=== PATIENT | male | born 1960 | race Caucasian/White ===

== ENCOUNTER 2025-08-15 21:11 | Inpatient (IN) | payer MEDICAID ==
[~2025-08-15] VITALS: Ht 167.6 cm; Wt 54.0 kg
--- NOTE | 2025-08-15 22:33 | Physician Documentation ---
History of Present Illness ~ Chief Complaint: Foot pain Stated Complaint: MULTIPLE ISSUES Time Seen by MD: 22:32 OK to notify your PCP?: Yes Primary Medical Doctor: none Source: patient, EMS, RN notes reviewed, EMS notes reviewed Mode of Arrival: EMS Exam Limitations: no limitations HPI 10 This patient is a 64 y/o male with DM2 BIBEMS to ED for feet pain. Patient states that this pain has been worsening for the past few months. Per EMS patient BG also over 600. He states he is upset because he was told by other doctors at [facility] that they could not place stents due to his blood vessels being too small. He does endorse EtOH use, stating he binge drinks. Patient not es that he has not been taking his insulin because he is upset that the doctors in [facility] and [facility] told him they could not place more stents, as his blood vessels were too small. They did give him lasix but he did not take them. Patient has been noncompliant with his medicaitons. Patient denies any associated fever or chills, but states he is short of breath and is having some chest pain. He does endorse methamphetamine use as well, but states he has not done any recently. He is unfortunately a very poor historian, and will not elaborate on his medical issues, nor his past medical history and is agitated that we do not immediately have access to his records from other hospitals. Patient denies any other associated symptoms at this time. Patient denies any other alleviating or exacerbating factors. Tetanus witin 5 years: Yes Medication Reconciliation Allergies: Coded Allergies: No Known Allergies (Unverified , 08/15/25) Past Medical History Past Medical History: Peripheral Neuropathy, Congestive Heart Failure, Hypertension, Myocardial Infarction, BPH, Diabetes, HIV, Anxiety, Depression Past Surgical History: noncontributory Smoking Status: Current every day smoker Alcohol Use: Heavy Drug Use: marijuana, methamphetamine Review of Systems All Other Systems at this time: Reviewed and Negative Physical Exam Vital Signs: RN Vital Signs have been reviewed: Yes, Temperature: 97.6, Source: Temporal, Heart Rate: 86, Respiratory Rate: 18, BP: 136/87, Pulse Oximetry: 100, Weight: 62.000 Oxygen Flow Rate: 0 Physical Exam General: Disheveled. The patient is well developed, well nourished, nontoxic appearing and is in no acute distress. Skin: [place], warm and dry with no rashes. HEENT: Head was normocephalic and atraumatic. Eyes - pupils equal, round, reactive to light and accommodation. Extraocular movements were intact. Conjunctivae were nonicteric. The mouth and oropharynx were clear with moist mucous membranes. There were no pharyngeal exudates or erythema. Neck: Supple and nontender. There was no jugular venous distention, lymphadenopathy, thyromegaly or masses. Chest: Clear to auscultation bilaterally without wheezes, rales or rhonchi. No accessory muscle use. No dullness to percussion. Heart: Rate regular and rhythmic. S1, S2. No murmurs. Palpation of the chest wall was normal. No rubs or thrills. Abdomen: Soft, nontender and nondistended. Positive bowel sounds. No guarding or rebound. No hepatosplenomegaly or palpable masses. Extremities: Pitting edema to bilateral lower extremities. Skin breakdown to both shins. Ulcerations to bilateral feet. No cyanosis or clubbing. The patient moves all extremities. Pulses were equal and symmetric. Neurologic: Motor and sensation grossly intact. A & O x4. Psychologic: The patient was oriented to person, place and time. Progress Progress Note 2352: Patient charts from [facility] and [facility] were obtained and reviewed. 0017: Paged hospitalist 0054: Case discussed with hospitalist who agrees to evaluate patient for admission. Results/Orders Reviewed/noted all lab results: Yes Results/Orders Orders - ALEX SWAIN MD Normal Saline 1000ml (0.9% Sodium Chlori (08/15/25 22:30) Culture Blood (08/15/25 22:33) Electrocardiogram (08/15/25 22:33) Abg (Arterial Blood Gas) (08/15/25 22:43) Chest,Single View (08/15/25 22:44) Insulin Reg/Ns 100units/100ml (Myxredlin (08/15/25 23:05) Observation Status Start (08/15/25 23:04) Normal Saline 1000ml (0.9% Sodium Chlori (08/16/25 00:15) Page Hospitalist (08/16/25 00:16) Fill Out Med Reconciliation (08/16/25 00:16) Completed Orders - ALEX SWAIN MD Lipase (08/15/25 22:29) Ethanol (08/15/25 22:29) MG (08/15/25 22:29) Pt Inr (08/15/25 22:29) PTT (08/15/25 22:29) Drug Screen, Urine (08/15/25 22:29) BMP (08/15/25 22:29) Hs Troponin I W Calculations (08/15/25 22:29) PBNP (08/15/25 22:31) Procalcitonin (08/15/25 22:33) Lacticsepsis (08/15/25 22:33) Electrocardiogram (08/15/25 22:33) Hs Troponin I W Calculations (08/15/25 22:33) Chest,Single View (08/15/25 22:44) Aspirin 81mg Chew Tablet (Aspirin 81mg C (08/15/25 22:45) Ua W/Microscopic, Cult If Ind (08/15/25 22:42) Ceftriaxone/N4j-[id number] 1gm (Rocephin 1 (08/16/25 00:55) Medications Received in ER Medications (Trade) Dose Ordered Sig/Aaron Route PRN Reason Start Time Stop Time Status Last Admin Dose Admin Sodium Chloride 1,000 ml @ 100 mls/hr Q10H ONCE IV 08/15/25 22:30 08/16/25 08:29 08/15/25 22:50 100 MLS/HR (aspirin 81MG chew tablet) 324 mg ONCE ONCE PO 08/15/25 22:45 08/15/25 22:46 DC 08/15/25 22:49 324 MG Insulin Human Regular 100 ml @ 5 mls/hr Q20H PRN IV Per Protocol 08/15/25 23:05 08/16/25 00:45 5 MLS/HR Sodium Chloride 1,000 ml @ 200 mls/hr Q5H ONCE IV 08/16/25 00:15 08/16/25 05:14 08/16/25 00:46 200 MLS/HR Ceftriaxone Sodium 50 ml @ 100 mls/hr ONCE ONCE IV 08/16/25 00:55 08/16/25 01:24 DC 08/16/25 01:21 100 MLS/HR Vital Signs 08/15/25 08/15/25 08/15/25 08/15/25 21:16 21:21 22:22 23:18 Temp 97.9 97.8 97.6 97.8 Pulse 91 92 86 90 Resp 20 20 18 20 B/P (MAP) 137/81 136/85 (102) 136/87 (103) 139/84 (102) Pulse Ox 99 100 100 98 O2 Flow Rate 0 0 0 0 08/16/25 00:25 Temp 98.2 Pulse 89 Resp 20 B/P (MAP) 125/82 (96) Pulse Ox 99 O2 Flow Rate 0 Laboratory Tests Test 08/15/25 21:42 08/15/25 22:42 08/15/25 23:14 08/15/25 23:24 Glucometer > 600 *H Urine Specimen Description Non-specified Urine Color Yellow Urine Clarity Clear Urine pH 7.0 Urine Specific [place] 1.010 Urine Protein Negative Urine Glucose (UA) >=1000 H Urine Ketones Negative Urine Occult Blood Negative Urine Nitrite Negative Urine Bilirubin Negative Urine Urobilinogen 0.2 Urine Leukocyte Esterase Negative Urine RBC None seen Urine WBC None seen Urine Squamous Epithelial Cells Few Urine Bacteria Few Urine Yeast Few Urine Culture Indicated Not ind Volume Urine Centrifuged 10 ml Urine Comment Urine Opiates Screen Negative Urine Methadone Screen Negative Urine Fentanyl Screen Negative Urine Barbiturates Screen Negative Urine Phencyclidine Screen Negative Urine Amphetamines Screen Negative Urine Benzodiazepines Screen Negative Urine Cocaine Screen Negative Urine Cannabinoids Screen Negative Drug Screen Comment White Blood Count 8.7 Red Blood Count 4.15 L Hemoglobin 13.0 L Hematocrit 37.9 L Mean Corpuscular Volume 91.5 Mean Corpuscular Hemoglobin 31.3 H Mean Corpuscular Hemoglobin Concent 34.2 Red Cell Distribution Width 13.0 Platelet Count 329 Mean Platelet Volume 7.5 Neutrophils (%) (Auto) 72.0 Lymphocytes (%) (Auto) 20.4 L Monocytes (%) (Auto) 5.7 Eosinophils (%) (Auto) 1.3 Basophils (%) (Auto) 0.6 Neutrophils # (Auto) 6.3 Lymphocytes # (Auto) 1.8 Monocytes # (Auto) 0.5 Eosinophils # (Auto) 0.1 Basophils # (Auto) 0.1 CBC Comment Prothrombin Time 10.9 INR International Normalized Ratio 1.1 Activated Partial Thromboplast Time 24 Coagulation Comments Sodium Level 130 L Potassium Level 4.4 Chloride Level 98 L Carbon Dioxide Level 26.8 Anion Gap 5 L Blood Urea Nitrogen 23 H Creatinine 0.95 Estimated GFR/1.73 m2 80 BUN/Creatinine Ratio 24.2 H Glucose Level 566 *H Lactic Acid Level 1.4 Calcium Level 8.2 L Magnesium Level 1.8 Total Bilirubin 0.4 Aspartate Amino Transf (AST/SGOT) 86 H Alanine Aminotransferase (ALT/SGPT) 115 H Alkaline Phosphatase 441 H Troponin I High Sensitivity 47 Pro-B-Type Natriuretic Peptide 9603 H Total Protein 6.0 L Albumin 2.3 L Globulin 3.7 Albumin/Globulin Ratio 0.6 L Lipase 63 Procalcitonin < 0.05 Chemistry Comments Ethyl Alcohol Level < 10 Blood Gas Specimen Type Arterial Blood Gas Puncture Site Rr O2 Saturation 96.2 Arterial Blood pH (Temp corrected) 7.460 H Arterial Blood pCO2 (Temp correct) 35.3 Arterial Blood pO2 (Temp corrected) 83.8 Arterial Blood PO2/FiO2 Ratio 4.10 Arterial Blood HCO3 24.6 Arterial Blood Base Excess 1.0 Arterial Blood Oxyhemoglobin 95.6 Arterial Blood Carboxyhemoglobin 0.3 L Arterial Blood Methemoglobin 0.3 Arterial Blood Deoxyhemoglobin 3.8 Herber Test Positive Blood Gas Hemoglobin 13.3 L Blood Gas Temperature 36.6 Blood Gas Liter Flow 0 Blood Gas Modality Room air FiO2 21.0 Re-Evaluation Re-Evaluation : Progress In his patient is a poor historian does not seem to be interested did in his own medical management jumping from hospital hospital with polysubstance abuse and medical noncompliance. Patient was seen in [place] then went to [facility] in [place] seen twice given Lasix and patient now comes to our hospital where he did not take his insulin or his other medications and presents with hyperglycemia worsening lower extremity wound ulcers starting to look infected and early signs of cellulitis. Laboratory work was obtained CBC WBCs 8.7 h emoglobin of 13 hematocrit 37 platelets 329 no significant left shift but the patient is HIV positive and immunocompromise. Chemistry shows a glucose greater than 600 sodium is low at 130 CO2 normal at 26 BUN creatinine is within normal limits. Lactic acid 1.4 procalcitonin at 0.5 which was all reassuring proBNP is 9600 for which hydration was done very gradually because the patient has heart failure and some lower extremity swelling with possible fluid overload LFTs slightly elevated with an AST of 86 ALT 115 and alk-phos 441. Subsequent glucose was 852694-44 after the patient was started on an insulin drip potassium also improved 3.9 magnesium 1.8 phosphorus 3.1 and serial troponins are negative tox screen happens to be negative including a negative alcohol. Urinalysis is also within normal limits. Upon arrival patient received fluid boluses he received Rocephin for skin infection also aspirin and insulin drip was started. Has a rare consult with the hospitalist who kindly agreed to admit the patient for further workup and care. Continuous monitoring tech interpretation shows normal sinus rhythm heart rate 90s, no ectopy, normal, my interpretation. Pulse oximetry monitor interpretation shows normal oxygenation at 99% room air, normal, my interpretation. 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 Alex Swain Measurements Intervals [place] Rate: 91 P: 72 [place]: 165 QRS: 98 QRSD: 84 T: 81 QT: 404 QTc: 498 Interpretive Statements Atrial-paced complexes LAE, consider biatrial enlargement Right axis deviation Consider left ventricular hypertrophy Anterior Q waves, possibly due to LVH Artifact in lead(s) I,III,aVL Electronically Signed On 08-15-2025 22:52:[address] Alex Swain Please click the below link to view image of tracing. EKG Date and Time:08/15/252243 Electronically Signed by: ALEX SWAIN MD Date and Time: 08/15/252251 NO PRIMARY CARE PROVIDER~ cc: ~ Chest X-Ray : Interpreted By: both Additional Comments [facility] [address] , [place], [facility] [address] DIAGNOSTIC RADIOLOGY Patient: LONG CAMARENA Medical Record: [id number] [facility] : 1960, Age: 64 Sex: Male Location: ER Patient Status: [facility] ER Service Date/Time: 08/15/252243 Ordering Physician: ALEX SWAIN MD Exam: CHEST,SINGLE VIEW CHEST RADIOGRAPH Indication: CP Technique: 1 view Comparison: None FINDINGS: Lines and Tubes: None Lungs/Pleura: No focal consolidation, pleural effusion or pneumothorax. Mild reticular opacities which are favored chronic. Cardiomediastinum: Upper normal heart size. Aortic atherosclerosis. Other: No acute osseous abnormality. IMPRESSION: 1. No acute cardiopulmonary abnormality. Electronically Signed by:ZACHARY DAVIS MD Date & Time: 08/15/252299 Dictated by: ZACHARY DAVIS MD Dictation date and time: 08/15/252252 Primary Care Provider: NO PRIMARY CARE PROVIDER cc: ALEX SWAIN MD ~ EDMD Dr. Swain reviewed above imaging and agrees with interpretation. Heart Score: Heart Score Response (Comments) Value History Slightly Suspicious 0 EKG Repolarization Disturb 1 Age 45-64 1 Risk Factors >3 or Hx ASHD 2 Troponin Normal limit 0 Total 4 Medical Decision Making Additional info obtained from: old records Foot Diff Dx:Considerations: Include: Abrasion, Arthritis, Cellulitis, Contusion, Dislocation, DJD, Ulcer Departure Time of Disposition: 00:17 Disposition: 09 ADMITTED INPATIENT Admitted to Inpatient Unit: yes, to hospitalist Admission Level of Care: PCU with Tele Impression: Primary Impression: Hyperglycemia Additional Impressions: Chest pain Qualified Codes: R07.9 - Chest pain, unspecified Medical non-compliance Diabetic foot ulcers Qualified Codes: E11.621 - Type 2 diabetes mellitus with foot ulcer; L97.509 - Non-pressure chronic ulcer of other part of unspecified foot with unspecified severity Hyperosmolality Polysubstance abuse Condition: Guarded Referrals: NO PRIMARY CARE PROVIDER (PCP) Education Educated: Patient Educated regarding: diagnosis, need for follow up, other Critical Care Note Total Time (mins): 30 Critical Care Note The very real possibility of a deterioration of this patient's condition required the highest level of my preparedness for sudden, emergent intervention. I provided critical care services, which included medication orders, frequent reevaluations of the patient's condition and response to treatment, ordering and reviewing test results, and discussing the case with various consultants. Excludes time spent performing separately billable procedures. The critical care time associated with the care of the patient was 30 minutes. Signature Scribe Signature: Scribed for Alex Swain MD by Taisha Bates 08/15/25 23:08 Attestation: The note accurately reflects work and decisions made by me.Alex Swain MD 08/16/25 04:20 ALEX SWAIN MD Aug 15, 2025 22:33
--- NOTE | 2025-08-15 22:47 | ELECTROCARDIOGRAPH REPORT ---
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 Paul Swain Measurements Intervals [place] Rate: 91 P: 72 [place]: 165 QRS: 98 QRSD: 84 T: 81 QT: 404 QTc: 498 Interpretive Statements Atrial-paced complexes LAE, consider biatrial enlargement Right axis deviation Consider left ventricular hypertrophy Anterior Q waves, possibly due to LVH Artifact in lead(s) I,III,aVL Electronically Signed On 08-15-2025 22:52:[address] Paul Swain Please click the below link to view image of tracing.
[2025-08-15] MEDS: normal saline 1000ml 1,000 ML IV ONE (22:50)
--- NOTE | 2025-08-15 23:03 | RADIOLOGY REPORT ---
CHEST RADIOGRAPH Indication: CP Technique: 1 view Comparison: None FINDINGS: Lines and Tubes: None Lungs/Pleura: No focal consolidation, pleural effusion or pneumothorax. Mild reticular opacities which are favored chronic. Cardiomediastinum: Upper normal heart size. Aortic atherosclerosis. Other: No acute osseous abnormality. IMPRESSION: 1. No acute cardiopulmonary abnormality.
[2025-08-15 23:12] LABS: LEUKOCYTE ESTERASE ,URINE NEGATIVE (Neg); NITRITES, URINE NEGATIVE (Neg); OCCULT BLOOD,URINE NEGATIVE (Neg)
[2025-08-15 23:15] LABS: UA COLLECTION TYPE NON-SPECIFIED
[2025-08-15 23:19] LABS: SQUAMOUS EPITHELIAL CELL,UR FEW /LPF (FEW); YEAST FEW /HPF (NEGATIVE)
[2025-08-15 23:23] LABS: MEAN PLATELET VOLUME 7.5 FL (7.4-10.4); RED CELL DISTRIBUTION WIDTH 13.0 % (11.5-14.5)
[2025-08-15 23:28] LABS: ABG BASE EXCESS 1.0 mmol/L (-2.0-3.0); ABG HCO3 24.6 mmol/L (21.0-28.0); ABG OXYGEN SATURATION 96.2 % (94.0-98.0); ABG PCO2 (T) 35.3 mmHg (35.0-48.0); ABG PH (T) 7.460 (7.350-7.450); ABG PO2 (T) 83.8 mmHg (83.0-108.0); ALLEN'S TEST POSITIVE; FCOHb 0.3 % (0.5-1.5); FHHb 3.8 % (0.0-5.0); FIO2 21.0 mmHg/%; FLOW 0 L/min; FMetHb 0.3 % (0.0-1.5); FO2Hb 95.6 % (94.0-98.0); MODE ROOM AIR; PATIENT TEMPERATURE 36.6; TOTAL HEMOGLOBIN 13.3 G/dl (13.5-17.5)
[2025-08-15 23:33] LABS: APTT 24 SECONDS (22-32); INR 1.1 INR
[2025-08-15 23:42] LABS: CREATININE 0.95 MG/DL (0.60-1.10); PRO BRAIN NATRIURETIC PEPTIDE 9603 PG/ML (0-125); TOTAL CARBON DIOXIDE 26.8 MMOL/L (24-32); eCRCL 70 ML/MIN; eGFR 80 ML/MIN
[2025-08-15 23:43] LABS: URINE AMPHETAMINE SCREEN NEGATIVE (Neg); URINE BARBITUATE SCREEN NEGATIVE (Neg); URINE BENZODIAZEPINES SCREEN NEGATIVE (Neg); URINE CANNABINOID SCREEN NEGATIVE (Neg); URINE COCAINE SCREEN NEGATIVE (Neg); URINE METHADONE SCREEN NEGATIVE (Neg); URINE OPIATE SCREEN NEGATIVE (Neg); URINE PHENCYCLIDINE SCREEN NEGATIVE (Neg)
[2025-08-15 23:47] LABS: ETHANOL < 10 MG/DL (<10)
[2025-08-16] VITALS (7 sets, daily range): BP systolic 108–128; BP diastolic 74–84; PULSE 70–83; RESP 17–26; TEMP 96.9–98.6; O2SAT 96–99
[2025-08-16] MEDS: Insulin Reg/NS 100units/100mL 100 ML IV PRN (00:45)
[2025-08-16] MEDS: normal saline 1000ml 1,000 ML IV ONE (00:46)
[2025-08-16] MEDS ORDERED: mag hydrox/Alum hydrox/simeth 30ml oral suspension PO PRN (00:55)
[2025-08-16] MEDS ORDERED: potassium Cl 20 mEq SR tablet PO PRN ×2 (00:55)
[2025-08-16] MEDS ORDERED: magnesium hydroxide 30ml (MOM) UD suspension PO PRN (00:55)
[2025-08-16] MEDS ORDERED: ondansetron/PF 4mg/2ml inj IV PRN (00:55)
[2025-08-16] MEDS ORDERED: magnesium Cl slow-release 64mg tablet PO PRN (00:55)
[2025-08-16] MEDS ORDERED: magnesium sulf-water 2g/50mL 50 ML IV PRN ×2 (00:55→02:05)
[2025-08-16] MEDS ORDERED: magnesium sulf-water 4G/100mL 100 ML IV PRN (00:55)
[2025-08-16] MEDS ORDERED: potassium Cl 40MEQ/1/2NS 520ml 520 ML IV PRN ×2 (00:55→02:05)
[2025-08-16] MEDS: CefTRIAXone/D5W-Rocephin 1gm 50 ML IV ONE (01:21)
[2025-08-16] MEDS ORDERED: potassium Cl 40MEQ/270ML bag 270 ML IV PRN (02:05)
[2025-08-16] MEDS ORDERED: sodium phosphate inj. 30 MMOL in dextrose 5%-water 250 ML IV PRN (02:05)
[2025-08-16] MEDS ORDERED: sodium phos 15mmol/D5 255mL 255 ML IV PRN (02:05)
[2025-08-16] MEDS ORDERED: dextrose 50%-water 50ml dispensing syringe IV PRN ×3 (02:05→05:05)
[2025-08-16 02:28] LABS: PHOSPHORUS 3.1 MG/DL (2.3-4.5)
--- NOTE | 2025-08-16 02:34 | HISTORY AND PHYSICAL-Residence ---
History & Physical Providers to CC Resident Creating Document: JOSE PADILLA RES ~ History of Present Illness Primary Medical Doctor: none Reason for Admit\Complaint: HHS, cellulitis History of Present Illness 64 years old male with history of diabetes mellitus insulin-dependent, CHF unknown EF, coronary artery disease status post stent, HIV, polysubstance abuse, alcohol drinker presented to the ED due to not feeling good and bilateral lower extremity wound/edema. Patient lives in a and he is traveling around the area. He is visiting different hospital as his report during last couple of months which similar symptoms. Patient is poor historian and information gathered from patient and medical record from other hospital. He reported during last couple of months he did not feel good he missed his insulin injection and traveled from city to city with different hospitals and he is not satisfy with the care that they provided for him. He had bilateral lower extremity edema and multiple wound for couple of weeks. He is comfortable at the bedside denied chest pain shortness of breaths at this time however he reported he is battling with chest pain and shortness of breaths for couple of months. Allergies: Coded Allergies: No Known Allergies (Unverified , 08/15/25) Past Medical History Past Medical History Coronary artery disease status post stent CHF HIV (as previous record) Diabetes mellitus Anxiety depression PTSD Past Surgical History Surgical History Comment Patient reported many years ago he had stopped wound on his back and had back surgery and also stomach surgery? Coronary artery disease status post stent (as previous record) Family History Family History: FH: diabetes mellitus (Sister,) Past Social History Smoking: Cigarettes (Smoked cigarettes, methamphetamine) Alcohol Use: Heavy Drug Use: Marijuana, Methamphetamine (Methamphetamine IV and smoking) ROS ROS Constitutional: No fever, dizziness, positive for weakness. no change in appetite/weight HEENT: No blurring of the vision, No sore throat, epistaxis, tinnitus Cardiovascular: Intermittent chronic chest pain/discomfort,no palpitations, no syncope. Positive pedal edema Respiratory: No sob, cough,, hemoptysis Gastrointestinal: Intermittent abdominal pain, no nausea, vomiting. no diarrhea, no constipation, melena. Genitourinary: No frquency, urgency, incontinence, nocturia. No dysuria, hematuria Musculoskeletal: Bilateral foot pain Endocrine: Positive for polydipsia, polyuria. No heat or cold intolerance Neurologic: No headache, vertigo. No weakness, no numbness or tingling of extremities Psychiatric: No hallucinations/delusions, no anhedonia, no suicidal ideation\ positive for mood changes Hematologic: No bleeding or bruises Exam Vitals: Vital Signs Date Time Temp Pulse Resp B/P (MAP) Pulse Ox O2 Delivery O2 Flow Rate FiO2 08/16/25 01:45 97.8 85 20 144/88 (106) 99 0 General: General: Awake and Alert, no acute distress. HEENT: Conjunctiva pink, Sclera clear, Mucus Membranes dry Neck: Supple without masses and tenderness. Resp: Lungs clear to auscultation bilaterally. Heart: Regular Rate and rhythm, normal S1 and S2 Abdomen: Soft and non tender no organomegaly Extremities: Bilateral lower extremity 2+ edema, foot edema, multiple ulcer on the mendoza, tender and warmth in touch Skin: Warm and Dry. Neurological: Speech is clear, alert, and oriented x 4, no gross neurological deficits Diagnostic Data Last Recorded Lab Results: 08/15/25 2314 08/15/25 2314 Diagnostic Data: Laboratory Tests Test 08/15/25 23:14 Prothrombin Time 10.9 SECONDS (9.0-12.0) INR International Normalized Ratio 1.1 INR Activated Partial Thromboplast Time 24 SECONDS (22-32) Coagulation Comments Advance Care Planning Advanced Care plannin - 30 Minutes Additional Plan 64 years old male with history of CHF, coronary artery disease, polysubstance abuse including methamphetamine IV presented to the ED due to weakness/not feeling it HHS: resolved Uncontrolled diabetes noncompliant with medication Blood glucose on admission was 600, ABG showed: No acidosis, UA negative for ketones Insulin drip started as protocol in the ED initially Patient received IV fluid initially 200 mL/hour however due to history of CHF and bilateral lower extremity edema and elevated proBNP we decreased the dose after couple hours We DC the insulin drip after blood glucose dropped and started on hyperglycemia hypoglycemia protocol, insulin Lantus 5 units overlapped. Hemoglobin A1c is pending ,10 units Lantus HS ordered with hyperglycemia hypoglycemia protocol Cellulitis WBC 8.7 Patient had history of uncontrolled diabetes Bilateral lower extremity edema and multiple small ulcers Venous Doppler ordered Zosyn started Continue IV fluid follow up blood culture CHF, unknown EF Coronary artery disease status post stent Hypertension Elevated proBNP ECHO ordered Medication should be optimized for GDM T other comorbidities Alcohol drinker, history of methamphetamine IV drug abuse, (patient is on HIV medication as record at [facility]) Alcohol withdrawal protocol in place Continue home medication after reconciliation Code Status: full DVT prophylaxis: heparin sq Analgesia/sedation: none Line/tube: peripheral GI prophylaxis: protonix Nutrition: Carb control PT: Y Prognosis: Guarded Disposition: Continue monitoring PCU floor with telemetry Jose Padilla MD Internal Medicine Resident We saw and discussed this patient and discussed the case with the resident team and agree with assessment and plan as documented Date of Service: Aug 16, 2025 Billing Provider: TYRONE BYRD MD, ELAHE, RES Aug 16, 2025 02:34 TYRONE BYRD MD Aug 16, 2025 08:28
[2025-08-16] MEDS: morphine 4 MG/ML inj SYRINge IV PRN ×2 (03:01→17:39)
[2025-08-16] MEDS ORDERED: glucagon, human recombinant 1mg kit SUBCUT PRN (05:05)
[2025-08-16] MEDS ORDERED: DEXTROSE 15 GM of carb/4 tabs (each vial/BOTTLE has 4 tablets) PO PRN ×2 (05:05)
[2025-08-16] MEDS: normal saline 1000ml 1,000 ML IV SCH (05:14)
[2025-08-16] MEDS: K and/or MAG REPLACEMENT MC SCH (08:00)
[2025-08-16] MEDS: INSULIN LISPRO 100 UNIT/ML INSULN.PEN MULTI-DOSE SQ SCH ×3 (08:23→18:00)
[2025-08-16] MEDS: insulin glargine (Lantus) pen - multi-dose SQ ONE ×2 (08:23→16:24)
[2025-08-16] MEDS: docusate sod 100mg capsule PO SCH (08:24)
[2025-08-16] MEDS: thiamine 100mg/ml 2ml inj. IV SCH (08:24)
[2025-08-16] MEDS: piperacillin/tazo 3.375gm/50ml 50 ML IV SCH (09:38)
[2025-08-16] MEDS: folic acid 1mg/0.2ml inj IV SCH (11:00)
[2025-08-16] MEDS ORDERED: [UNRECOGNIZED DRUG - CODE] (12:37)
[2025-08-16] MEDS ORDERED: EMPA10TA PO (12:37)
[2025-08-16] MEDS ORDERED: ATOR40TA72 PO (12:37)
[2025-08-16] MEDS ORDERED: ISOS30TA84 PO (12:37)
[2025-08-16] MEDS ORDERED: INSU100V49 (12:37)
[2025-08-16] MEDS ORDERED: ASPI-1397 PO (12:37)
[2025-08-16] MEDS ORDERED: BLOO-1657 (12:37)
[2025-08-16] MEDS ORDERED: CLOP75TA34 PO (12:37)
[2025-08-16] MEDS ORDERED: METO-395 PO (12:37)
[2025-08-16] MEDS ORDERED: INSU100I31 SQ (12:37)
[2025-08-16] MEDS ORDERED: insulin regular, human 10 units/0.1 ml syringe IV ONE (12:45)
[2025-08-16] MEDS: FLU VACC TS2025-26(6MOS UP)/PF (FLULAVAL) 45 MCG/0.5 ML SYRINGE IMVAC ONE (13:00)
[2025-08-16] MEDS: insulin regular, human 10 units/0.1 ml syringe SQ ONE ×2 (13:05→16:25)
[2025-08-16] MEDS ORDERED: HYDROcodone/acetaminophen 5mg/325mg tablet PO PRN (13:50)
[2025-08-16] MEDS: HYDROcodone/acetaminophen 10/325mg tab PO PRN (14:52)
[2025-08-16] MEDS: insulin glargine (Lantus) pen - multi-dose SQ SCH (16:57)
--- NOTE | 2025-08-16 17:02 | VASCULAR REPORT ---
Bilateral lower extremity venous duplex Clinical History: Bilateral calf pain Comparison: None Technique: Duplex Doppler evaluation of the deep venous systems of both lower extremities from the common femoral veins to the popliteal veins including color Doppler and spectral/pulsed waveform analysis was performed. Findings: RIGHT SIDE: The common femoral vein demonstrates appropriate compressibility and waveform variability. There is compressibility/patency of the great saphenous vein at the proximal thigh. The femoral vein demonstrates appropriate compressibility and waveform variability. The deep femoral vein demonstrates appropriate compressibility and waveform variability. The popliteal vein demonstrates appropriate compressibility and waveform variability. There is normal compressibility at the tibioperoneal trunk. LEFT SIDE: The common femoral vein demonstrates appropriate compressibility and waveform variability. There is compressibility/patency of the great saphenous vein at the proximal thigh. The femoral vein demonstrates appropriate compressibility and waveform variability. The deep femoral vein demonstrates appropriate compressibility and waveform variability. The popliteal vein demonstrates appropriate compressibility and waveform variability. There is normal compressibility at the tibioperoneal trunk. Normal-appearing lymph nodes are seen in the bilateral groins. Impression: 1. No right or left femoropopliteal venous thrombosis. 2. If clinical concern/symptoms persist or worsen, short-interval follow-up study is suggested.
[2025-08-16] MEDS: EMPAGLIFLOZIN 10 MG TABLET PO SCH (17:41)
[2025-08-16] MEDS: aspirin 81mg, enteric-coated 1 TAB TABLET.DR PO SCH (17:41)
[2025-08-16] MEDS: isosorbide mononitrate 30mg tab.SR.24H PO SCH (17:41)
[2025-08-16] MEDS: metoprolol succinate 25mg (24-HOUR) SR. Tablet PO SCH (17:45)
--- NOTE | 2025-08-16 20:23 | CARDIOLOGY REPORT ---
APPROVED REPORT EXAM: Comprehensive 2D, Doppler, and color-flow Echocardiogram. Patient Location: [address] Blood Pressure: 122/80 mmHg Heart Rate: 81 bpm Rhythm: Sinus Rhythm Indications Congestive Heart Failure Evaluate LV Function Elevated ProBNP Hx of CAD Hx of Stents X 1 Diabetes Mellitus II HIV Positive [place]: None Previous echo: None 2D Dimensions RVDd 3.9 cm LA Diam 4.5 cm RA Minor 4.5 cm Aortic Root(2D) 3.5 cm LVOT Diameter 2.02 (1.8-2.4cm) IVC 21.53 mm CO 1.6 L/min M-Mode Dimensions Left Atrium(MM) 4.54 (2.5-4.0cm) IVSd 1.24 (0.7-1.1cm) LVDd 5.27 (4.0-5.6cm) Aortic Root 3.08 (2.2-3.7cm) PWd 1.10 (0.7-1.1cm) Aortic Cusp Exc 1.72 (1.5-2.0cm) IVSs 1.26 cm MV EPSS 1.8 (<0.5cm) LVDs 4.94 (2.0-3.8cm) FS (%) 7 % PWs 1.10 cm ESV(Teich) 98.3 ml LVEF(%) 16 (>50%) Aortic Valve AoV Peak Galo. 81.5 cm/s AoV VTI 14.5 cm AO Peak GR. 2.7 mmHg AO Mean GR. 2 mmHg LVOT VTI 10.63 cm LVOT Peak Galo. 60.7 cm/s IDANIA(VTI)/BSA 2.35 cm2/m2 IDANIA (VTI) 2.35 cm2 Mitral Valve MV E Velocity 481.9 cm/s MV Peak Gr. 7 mmHg MV DECEL TIME 156 ms MV A Velocity 479.0 cm/s MV Mean Gr. 2 mmHg MV PHT 48 ms E/A Ratio 1.0 MVA (PHT) 4.58 cm2 MR VMax 490.7 cm/s MV VMax 129.0 cm/s MR PG Max 96.3 mmHg MV VMean 57.5 cm/s MVA VTI 1.70 cm2 MV VTI 20.0 cm Tricuspid Valve TR P. Velocity 358 cm/s RAP ESTIMATE 15 mmHg TR Peak Gr. 51 mmHg RVSP 66 mmHg LEFT VENTRICLE Normal LV size with severely reduced function. Multisegmental wall motion abnormalities. Mild concentric hypertrophy. Overall LVEF is 10-15%. RIGHT VENTRICLE Right ventricle is moderate to severely dilated with reduced systolic function. Estimated PA systolic pressure is 66 mmHg. ATRIA Moderate biatrial enlargement. AORTIC VALVE Trileaflet AV appears sclerotic without stenosis. Mild insufficiency. MITRAL VALVE Moderate MV annular thickening. Posterior Mitral leaflet appears to have mild prolapse. No stenosis with severe regurgitation. TRICUSPID VALVE TV appears structurally normal with moderate regurgitation. Elevated right heart pressures as noted above. PULMONIC VALVE Normal PV without stenosis, mild insufficiency. GREAT VESSELS The aortic root is normal in size. IVC is dilated and collapses less than 50% with inspiration. PERICARDIUM Normal pericardium. No pericardial effusion seen. Other Information Study Quality: Adequate Conclusion Normal LV size with severely reduced function. Multisegmental wall motion abnormalities. Mild concentric hypertrophy. Overall LVEF is 10-15%. Right ventricle is moderate to severely dilated with reduced systolic function. Estimated PA systolic pressure is 66 mmHg. Moderate biatrial enlargement. Trileaflet AV appears sclerotic without stenosis. Mild insufficiency. Moderate MV annular thickening. Posterior Mitral leaflet appears to have mild prolapse. No stenosis with severe regurgitation. TV appears structurally normal with moderate regurgitation. Elevated right heart pressures as noted above. Normal PV without stenosis, mild insufficiency. Normal pericardium. No pericardial effusion seen.
[2025-08-16] MEDS ORDERED: insulin glargine (Lantus) pen - multi-dose SQ SCH (21:00)
[2025-08-17] VITALS (8 sets, daily range): BP systolic 104–121; BP diastolic 58–79; PULSE 68–89; RESP 17–20; TEMP 96.9–98.3; O2SAT 97–100
[2025-08-17] MEDS: piperacillin/tazo 3.375gm/50ml 50 ML IV ONE (01:59)
[2025-08-17 07:11] LABS: MEAN PLATELET VOLUME 7.4 FL (7.4-10.4); RED CELL DISTRIBUTION WIDTH 13.1 % (11.5-14.5)
[2025-08-17 07:42] LABS: CREATININE 0.94 MG/DL (0.60-1.10); TOTAL CARBON DIOXIDE 27.2 MMOL/L (24-32); eCRCL 61 ML/MIN; eGFR 81 ML/MIN
--- NOTE | 2025-08-17 15:05 | PROGRESS NOTE- Residence ---
Progress Note - Resident Providers to CC Resident Creating Document: SHEBA JIM RES ~ Antibiotic Timeout Antibiotic Ordered?: No Subjective Patient was seen and examined at bedside today. Patient does not have any new complaints, just says that he is hungry. No acute overnight events recorded. Objective Vital Signs Date Time Temp Pulse Resp B/P (MAP) Pulse Ox O2 Delivery O2 Flow Rate FiO2 08/17/25 11:47 16 08/17/25 11:00 96.9 74 121/58 (79) 97 Room Air 08/17/25 02:00 0.0 Result Diagram: 08/17/2535 08/17/25634 General: Awake and Alert, no acute distress. HEENT: Conjunctiva pink, Sclera clear, Mucus Membranes moist Neck: Supple without masses and tenderness. Resp: Lungs clear to auscultation bilaterally. Heart: Regular Rate and rhythm, normal S1 and S2 Abdomen: Soft and non tender no organomegaly Extremities: Bilateral lower extremity 2+ edema, foot edema. Skin: Warm and Dry. Neurological: Speech is clear, alert, and oriented x 4, no gross neurological deficits Coagulation Studies Laboratory Tests Test 08/15/25 23:14 Prothrombin Time 10.9 SECONDS (9.0-12.0) INR International Normalized Ratio 1.1 INR Activated Partial Thromboplast Time 24 SECONDS (22-32) Coagulation Comments Plan Plan CHF with reduced ejection fraction Coronary artery disease status post stent Elevated proBNP -ECHO shows Normal LV size with severely reduced function. Multisegmental wall motion abnormalities. Mild concentric hypertrophy. Overall LVEF is 10-15%. Right ventricle is moderate to severely dilated with reduced systolic function. Estimated PA systolic pressure is 66 mmHg. Posterior Mitral leaflet appears to have mild prolapse. No stenosis with severe regurgitation. Moderate biatrial enlargement. Normal pericardium. No pericardial effusion seen. -patient on Lasix 20 mg b.i.d. -patient started on GDMT protocol. Jardiance, losartan, metoprolol, spironolactone. HHS: resolved diabetes noncompliant with medication Blood glucose on admission was 600, ABG showed: No acidosis, UA negative for ketones HB A1c >12 Patient's current blood glucose 72 Patient on hyperglycemia hypoglycemia protocol Lantus 20 units, currently sugars are well-maintained Patient on carb controlled diet. We will continue to monitor his glucose levels. Cellulitis ruled out Leg swelling most likely due to underlying heart failure. WBC count normal Vitals stable Procalcitonin, lactic acid normal Code Status: full DVT prophylaxis: heparin sq Analgesia/sedation: Morphine Line/tube: peripheral Nutrition: Carb control PT: Y Prognosis: Guarded Sheba Jim PGY-1. Date of Service: Aug 17, 2025 Billing Provider: MARGUERITE HAYES MD Common Visit Codes: [id number] INP/OBS CARE(HIGH) SHEBA JIM, RES Aug 17, 2025 15:05 MARGUERITE HAYES MD Aug 18, 2025 06:58
[2025-08-17] MEDS: insulin glargine (Lantus) pen - multi-dose SQ SCH (20:09)
[2025-08-18 02:00] VITALS: BP 120/81; PULSE 74; RESP 17; TEMP 97.9; O2SAT 99
[2025-08-18 07:00] VITALS: BP 119/72; PULSE 79; RESP 12; TEMP 97.6; O2SAT 97
[2025-08-18 07:55] LABS: MEAN PLATELET VOLUME 7.9 FL (7.4-10.4); RED CELL DISTRIBUTION WIDTH 13.2 % (11.5-14.5)
[2025-08-18 08:00] LABS: CREATININE 1.01 MG/DL (0.60-1.10); TOTAL CARBON DIOXIDE 26.3 MMOL/L (24-32); eCRCL 57 ML/MIN; eGFR 75 ML/MIN
[2025-08-18 11:00] VITALS: BP 114/63; PULSE 78; RESP 10; TEMP 97.3; O2SAT 98
--- NOTE | 2025-08-18 15:41 | PROGRESS NOTE- Residence ---
Progress Note - Resident Providers to CC Resident Creating Document: ROLDAN VALADEZ, RES ~ Subjective Patient was seen and examined on bedside, he reports that he has no shortness of breath, he complains of fall but as per nurse he did not fall, In addition to that he said he was hungry, discussed lifevest with a patient and he agrees to that. Patient was agitated, angry threw urinal to nurse. Objective Vital Signs Date Time Temp Pulse Resp B/P (MAP) Pulse Ox O2 Delivery O2 Flow Rate FiO2 08/18/25 11:45 19 08/18/25 11:00 97.3 78 114/63 (80) 98 Room Air 08/17/25 02:00 0.0 Result Diagram: 08/18/2544 08/18/25643 General: awake, alert oriented to place, time, and person HEENT: No pallor present, no icterus, moist mucous membranes Neck: No masses and tenderness Resp: Unlabored. Lungs clear to auscultation bilaterally. Chest: Normal expansion. Cardiovascular: Regular Rate and rhythm, normal S1 and S2 without murmur, rub or gallop Abdomen: Soft and non tender in epigastrium, no organomegaly, no guarding and rigidity, bowel sounds present Neuro: No focal weakness in the upper and lower limb muscles, power of the muscles 5/5 bilateral upper and lower extremities, normal reflexes bilaterally. Cranial nerves intact Extremities: No cyanosis,clubbing or edema Skin: Warm and Dry. Psych: Normal affect Coagulation Studies Laboratory Tests Test 08/15/25 23:14 Prothrombin Time 10.9 SECONDS (9.0-12.0) INR International Normalized Ratio 1.1 INR Activated Partial Thromboplast Time 24 SECONDS (22-32) Coagulation Comments Plan Plan Heart Failure With Reduced Ejection Fraction Elevated proBNP 9603 Echo shows: Normal LV size with severely reduced function. Multisegmental wall motion abnormalities. Mild concentric hypertrophy. Overall LVEF is 10-15%. Right ventricle is moderate to severely dilated with reduced systolic function. Estimated PA systolic pressure is 66 mmHg, Moderate biatrial enlargement. Moderate MV annular thickening. TV appears structurally normal with moderate regurgitation. Elevated right heart pressures as noted above Plan -Patient on Lasix 20 mg b.i.d. -Continue GDMT protocol. Jardiance, losartan, metoprolol, spironolactone -Patient will most likely benefit from LifeVest Hyponatremia possibly Secondary to heart failure Sodium 131 Poor prognostic factor for heart failure Urine lytes has been ordered to find out the etiology for hyponatremia Follow up with serum and urine osmolality Hypocalcemia Corrected calcium for albumin is 9.1 HHS: resolved Diabetes Non Compliant With Medication Blood glucose on admission was 600, ABG showed: No acidosis, UA negative for ketones HB A1c >12 Patient glucose on glucometer was 280 Patient on hyperglycemia/hypoglycemia protocol Switched lantus 20 units to 23 units. Patient on carb controlled diet. We will continue to monitor his glucose levels. Code Status: full DVT prophylaxis: heparin sq Analgesia/sedation: Morphine Line/tube: peripheral Nutrition: Carb control Disposition: Patient will be discharged possibly tomorrow, to [facility] and he would need life vest, PT has cleared the patient. Restraint orders are in place Roldan Valadez PGY1 IM Date of Service: Aug 18, 2025 Billing Provider: MARGUERITE HAYES MD, SANJAY, RES Aug 18, 2025 15:41
[2025-08-18 16:17] VITALS: RESP 19
[2025-08-18] MEDS ORDERED: SPIR25TA PO (16:42)
[2025-08-18] MEDS ORDERED: EMPA10TA PO (16:42)
[2025-08-18] MEDS ORDERED: FURO-150 PO (16:42)
[2025-08-18] MEDS ORDERED: ATOR40TA72 PO (16:42)
[2025-08-18] MEDS ORDERED: LOSA25TA41 PO (16:42)
[2025-08-18] MEDS ORDERED: METO-395 PO (16:42)
[2025-08-18] MEDS ORDERED: ISOS30TA84 PO (16:42)
[2025-08-18] MEDS ORDERED: CLOP75TA34 PO (16:42)
[2025-08-18] MEDS ORDERED: SYRI-641 SUBCUT (17:00)
[2025-08-18] MEDS ORDERED: INSU100V46 SQ (17:00)
[2025-08-18] MEDS ORDERED: LANTUS SQ (17:00)
--- NOTE | 2025-08-18 19:31 | DISCHARGE SUMMARY-Residence ---
Discharge Summary Providers to CC Resident Creating Document: ROLDAN VALADEZ RES ~ Discharge Summary Admission Diagnosis: Cellulitis Hospital Course DATE OF ADMISSION: 08/16/25 DATE OF DISCHARGE: 08/18/25 Discharge Diagnosis\\Comment: Heart failure with reduced ejection fraction HHS: resolved Diabetes Mellitus Heart failure with reduced ejection fraction Coronary artery disease s/p stent Hypertension HIV positive Alcohol use disorder IV drug methamphetamine use CHF, unknown EF Coronary artery disease status post stent Hypertension Hyponatremia Bilateral lower leg cellulitis ruled out Operations\\Procedures: None Consultants: None Complications: None Condition on DC: Stable New Medications: Empagliflozin (Jardiance) 10 Mg Tablet 1 TAB PO DAILY for 30 Days, #30 TAB 0 Refills Furosemide (Lasix) 20 Mg Tablet 40 MG PO DAILY for 30 Days, #60 TAB Insulin Aspart (Insulin Aspart) 100 Unit/Ml Vial 15 UNITS SQ TIDWM for 30 Days, #14 VIAL Insulin Glargine,Hum.rec.anlog* (Lantus*) 100 Unit/1 Ml Vial 25 UNITS SQ DAILY for 30 Days, #10 VIAL Syringe & Needle,Insulin,1 ml (Insulin Syringe) 29 Gauge X 7/16" Disp.syrin SYR SUBCUT DAILY, #100 0 Refills Losartan Potassium (Losartan Potassium) 25 Mg Tablet 25 MG PO DAILY for 30 Days, #30 TAB Spironolactone (Aldactone) 25 Mg Tablet 25 MG PO DAILY@0830 for 30 Days, #30 TAB Continued Medications: Aspirin (Aspirin EC) 81 Mg Tablet.dr 1 TAB PO DAILY Atorvastatin Calcium (Atorvastatin Calcium) 40 Mg Tablet 1 TAB PO DAILY for 30 Days, #30 TAB (This prescription has been renewed) Clopidogrel Bisulfate (Clopidogrel) 75 Mg Tablet 1 TAB PO DAILY for 30 Days, #30 TAB (This prescription has been renewed) Isosorbide Mononitrate (Isosorbide Mononitrate Er) 30 Mg Tab.er.24h 1 TAB PO DAILY for 30 Days, #30 TAB.SR (This prescription has been renewed) Metoprolol Succinate (Metoprolol Succinate) 25 Mg Tab.sr.24h 1 TAB PO DAILY for 30 Days, #30 TAB.SR (This prescription has been renewed) Discharge Summary: HPI 64 years old male with history of diabetes mellitus insulin-dependent, CHF unknown EF, coronary artery disease status post stent, HIV, polysubstance abuse, alcohol drinker presented to the ED due to not feeling good and bilateral lower extremity wound/edema. Patient lives in a and he is traveling around the area. He is visiting different hospital as his report during last couple of months which similar symptoms. Patient is poor historian and information gathered from patient and medical record from other hospital. He reported during last couple of months he did not feel good he missed his insulin injection and traveled from city to city with different hospitals and he is not satisfy with the care that they provided for him. He had bilateral lower extremity edema and multiple wound for couple of weeks. He is comfortable at the bedside denied chest pain shortness of breaths at this time however he reported he is battling with chest pain and shortness of breaths for couple of months. Hospital Course This is a 64-year-old male with past medical history of diabetes mellitus insulin dependent, CHF, coronary artery disease status post stent HIV polysubstance abuse presented in ER due to lower bilateral lower extremity wounds and edema. In view of patient edema ordered vascular ultrasound which showed which was negative for DVT and for cellulitis patient was started empirically on Zosyn. However patient bilateral lower leg edema was possibly from heart failure with reduced ejection fraction as echo showed 10-15% of EF as cellulitis was ruled out, WBC count normal and blood culture was normal. Patient Right ventricle is moderate to severely dilated with reduced systolic function. Estimated PA systolic pressure is 66 mmHg. For heart failure patient was started on GDMT, including Jardiance, losartan, metoprolol, spironolactone and patient was tolerating GDMT and as his symptoms were much improved. In view of heart failure with reduced ejection fraction patient was advised to wear LifeVest. Apart from that patient was also treated for diabetes with Lantus 20 units and hyperglycemia/hypoglycemia protocol, his HbA1c was greater than 12 and He had HHS which was resolved with insulin drip and IV fluids. Patient was medically stable for discharge he he denied any shortness of breath on walking, and discharged to [place] as he has a history of homelessness. Physical Examination on Discharge General: Awake and Alert, no acute distress. Patien was angry because of food. HEENT: Conjunctiva pink, Sclera clear, Mucus Membranes dry Neck: Supple without masses and tenderness. Resp: Lungs clear to auscultation bilaterally. Heart: Regular Rate and rhythm, normal S1 and S2 Abdomen: Soft and non tender no organomegaly Extremities: No cyanosis clubbing or edema, dry wounds on both legs Skin: Warm and Dry. Neurological: Speech is clear, alert, and oriented x 4, no gross neurological deficits Labs on Discharge Test 08/16/25 20:41 08/17/25 06:35 08/17/25 11:41 08/17/25 17:14 Glucometer 152 mg/dl 250 mg/dl 122 mg/dl White Blood Count 9.8 X10'3 Red Blood Count 4.21 X10'6 Hemoglobin 13.1 g/dl Hematocrit 38.7 % Mean Corpuscular Volume 91.8 FL Mean Corpuscular Hemoglobin 31.1 PG Mean Corpuscular Hemoglobin Concent 33.9 g/dL Red Cell Distribution Width 13.1 % Platelet Count 370 X10'3 Mean Platelet Volume 7.4 FL Neutrophils (%) (Auto) 65.7 % Lymphocytes (%) (Auto) 26.5 % Monocytes (%) (Auto) 6.7 % Eosinophils (%) (Auto) 0.7 % Basophils (%) (Auto) 0.4 % Neutrophils # (Auto) 6.5 X10'3 Lymphocytes # (Auto) 2.6 X10'3 Monocytes # (Auto) 0.7 X10'3 Eosinophils # (Auto) 0.1 X10'3 Basophils # (Auto) 0.0 X10'3 CBC Comment Sodium Level 138 MMOL/L Potassium Level 4.2 MMOL/L Chloride Level 104 MMOL/L Carbon Dioxide Level 27.2 MMOL/L Anion Gap 7 Blood Urea Nitrogen 24 MG/DL Creatinine 0.94 MG/DL Estimated GFR/1.73 m2 81 ML/MIN BUN/Creatinine Ratio 25.5 Glucose Level 72 MG/DL Calcium Level 7.9 MG/DL Magnesium Level 1.9 MG/DL Total Bilirubin 0.3 MG/DL Direct Bilirubin 0.1 MG/DL Aspartate Amino Transf (AST/SGOT) 46 U/L Alanine Aminotransferase (ALT/SGPT) 84 U/L Alkaline Phosphatase 360 IU/L Total Protein 5.4 G/DL Albumin 2.0 G/DL Globulin 3.4 G/DL Albumin/Globulin Ratio 0.6 Amylase Level 59 U/L Chemistry Comments Test 08/17/25 20:04 08/18/25 06:44 08/18/25 07:33 08/18/25 12:10 Glucometer 294 mg/dl 342 mg/dl 285 mg/dl White Blood Count 9.7 X10'3 Red Blood Count 4.50 X10'6 Hemoglobin 13.9 g/dl Hematocrit 41.0 % Mean Corpuscular Volume 91.1 FL Mean Corpuscular Hemoglobin 30.8 PG Mean Corpuscular Hemoglobin Concent 33.9 g/dL Red Cell Distribution Width 13.2 % Platelet Count 417 X10'3 Mean Platelet Volume 7.9 FL Neutrophils (%) (Auto) 67.2 % Lymphocytes (%) (Auto) 24.2 % Monocytes (%) (Auto) 7.1 % Eosinophils (%) (Auto) 1.0 % Basophils (%) (Auto) 0.5 % Neutrophils # (Auto) 6.5 X10'3 Lymphocytes # (Auto) 2.3 X10'3 Monocytes # (Auto) 0.7 X10'3 Eosinophils # (Auto) 0.1 X10'3 Basophils # (Auto) 0.0 X10'3 CBC Comment Sodium Level 131 MMOL/L Potassium Level 4.5 MMOL/L Chloride Level 97 MMOL/L Carbon Dioxide Level 26.3 MMOL/L Anion Gap 8 Blood Urea Nitrogen 34 MG/DL Creatinine 1.01 MG/DL Estimated GFR/1.73 m2 75 ML/MIN BUN/Creatinine Ratio 33.7 Glucose Level 358 MG/DL Osmolality 299 MOSM/K Calcium Level 8.1 MG/DL Magnesium Level 2.0 MG/DL Total Bilirubin 0.4 MG/DL Aspartate Amino Transf (AST/SGOT) 31 U/L Alanine Aminotransferase (ALT/SGPT) 69 U/L Alkaline Phosphatase 376 IU/L Total Protein 6.1 G/DL Albumin 2.3 G/DL Globulin 3.8 G/DL Albumin/Globulin Ratio 0.6 Chemistry Comments Test 08/18/25 17:10 Glucometer 275 mg/dl Imaging Echo Normal LV size with severely reduced function. Multisegmental wall motion abnormalities. Mild concentric hypertrophy. Overall LVEF is 10-15%. Right ventricle is moderate to severely dilated with reduced systolic function. Estimated PA systolic pressure is 66 mmHg. Moderate biatrial enlargement. Trileaflet AV appears sclerotic without stenosis. Mild insufficiency. Moderate MV annular thickening. Posterior Mitral leaflet appears to have mild prolapse. No stenosis with severe regurgitation. TV appears structurally normal with moderate regurgitation. Elevated right heart pressures as noted above. Normal PV without stenosis, mild insufficiency. Normal pericardium. No pericardial effusion seen. Vascular US No right or left femoropopliteal venous thrombosis. Chest X-Ray No acute cardiopulmonary abnormality. Discharge Instructions Follow up with PCP and Alteration Tailor Apprentice within 1 week Take medications as prescribed. Use your lifevest Adhere with insulin regimen and check blood glucose before adminstering insulin Hold isosorbide mononitrate if systolic blood pressure less than 100 and diastolic less than 80. Call 911 or go to nearest ER if you have chest pain or shortness of breath. *Problems/Diagnosis: (1) Medical non-compliance Status: Resolved Total Time Spent on D/C: > 30 Minutes Counseling Services Smoking & Tobacco Cessation: > 10 Minutes Date of Service: Aug 18, 2025 Billing Provider: MARGUERITE HAYES MD Common Visit Codes: 44020-JDB/OBS DISCH DAY >30min ROLDAN VALADEZ, RES Aug 18, 2025 19:08 MARGUERITE HAYES MD Aug 18, 2025 21:11
== END 2025-08-18 17:41 | disposition home or self-care (01) | DRG 420 ==
LOC: ER 21:12 → EDBD 21:12 → ED HOLD 08-16 01:02 → EDBEDREQ 08-16 04:53 → PCU 3S 08-16 07:35
PROVIDERS: ADMIT Internal Medicine; ATTEND Internal Medicine
DX: E11.00 Type 2 diabetes mellitus with hyperosmolarity without nonketotic hyperglycemic-hyperosmolar coma (NKHHC) (principal); I11.0 Hypertensive heart disease with heart failure; I50.22 Chronic systolic (congestive) heart failure; E87.1 Hypo-osmolality and hyponatremia; I25.10 Atherosclerotic heart disease of native coronary artery without angina pectoris; F10.10 Alcohol abuse, uncomplicated; Y90.0 Blood alcohol level of less than 20 mg/100 ml; R07.9 Chest pain, unspecified; N40.0 Benign prostatic hyperplasia without lower urinary tract symptoms; E11.42 Type 2 diabetes mellitus with diabetic polyneuropathy; L97.529 Non-pressure chronic ulcer of other part of left foot with unspecified severity; F15.10 Other stimulant abuse, uncomplicated; F41.9 Anxiety disorder, unspecified; F43.10 Post-traumatic stress disorder, unspecified; E11.621 Type 2 diabetes mellitus with foot ulcer; L97.519 Non-pressure chronic ulcer of other part of right foot with unspecified severity; F32.A Depression, unspecified; Z95.5 Presence of coronary angioplasty implant and graft; F17.210 Nicotine dependence, cigarettes, uncomplicated; I25.2 Old myocardial infarction; Z91.148 Patient's other noncompliance with medication regimen for other reason; Z83.3 Family history of diabetes mellitus
CPT/HCPCS: 36415; 36600; 71045; 80053; 80305; 80320; 81001; 82150; 82248; 82803; 82948; 83036; 83605; 83690; 83735; 83880; 83930; 84100; 84132; 84145; 84484; 85018; 85025; 85610; 85730; 87040; 87081; 93005; 93306; 93970; 96360; 99291; A6213; A6250; A6258; G0378; J0696; J1815; J1938; J2270; J2543; J3411; J3490; J7030

== ENCOUNTER 2025-08-21 18:46 | Inpatient (IN) | payer MEDICAID ==
[~2025-08-21] VITALS: Ht 167.6 cm; Wt 60.5 kg
[~2025-08-21 18:46] MED LIST: ASPI-1397 PO; ATOR40TA72 PO; BLOO-1657; CLOP75TA34 PO; EMPA10TA PO; FURO-150 PO; INSU100I31 SQ; INSU100V46 SQ; INSU100V49; ISOS30TA84 PO; LANTUS SQ; LOSA25TA41 PO; METO-395 PO; SPIR25TA PO; SYRI-641 SUBCUT; [UNRECOGNIZED DRUG - CODE]
--- NOTE | 2025-08-21 19:10 | Physician Documentation ---
History of Present Illness ~ Chief Complaint: Hyperglycemia Stated Complaint: CHEST PAIN Time Seen by MD: 18:57 Primary Medical Doctor: none Mode of Arrival: EMS HPI 64-year-old male new to the area was found on the side of the road today by EMS with an initial call chest pain. Upon arrival they test his blood sugar and he read over 600. Patient was seen here recently and provided insulin to help normalize his glucose levels. Patient also has a history of congestive heart failure and does not have any follow up care locally Day of Onset: Aug 21, 2025 Medication Reconciliation Allergies: Coded Allergies: No Known Allergies (Unverified , 08/21/25) Scheduled Aspirin (Aspirin EC), 1 TAB PO DAILY, (Reported) Atorvastatin Calcium (Atorvastatin Calcium), 1 TAB PO DAILY Clopidogrel Bisulfate (Clopidogrel), 1 TAB PO DAILY, (Reported) Clopidogrel Bisulfate (Clopidogrel), 1 TAB PO DAILY Empagliflozin (Jardiance), 1 TAB PO DAILY, (Reported) Empagliflozin (Jardiance), 1 TAB PO DAILY Furosemide (Lasix), 40 MG PO DAILY Insulin Aspart (Insulin Aspart), 15 UNITS SQ TIDWM Insulin Glargine,Hum.rec.anlog* (Lantus*), 25 UNITS SQ DAILY Isosorbide Mononitrate (Isosorbide Mononitrate Er), 1 TAB PO DAILY Losartan Potassium (Losartan Potassium), 25 MG PO DAILY Metoprolol Succinate (Metoprolol Succinate), 1 TAB PO DAILY Spironolactone (Aldactone), 25 MG PO DAILY@0830 Miscellaneous Medications Blood Sugar Diagnostic (Accu-Chek Guide Test Strip), (Reported) Insulin Glargine,Hum.rec.anlog (Basaglar Kwikpen U-100), SQ, (Reported) Insulin Lispro (Insulin Lispro), (Reported) Durable Medical Equipment Lancets (Accu-Chek Softclix), (Reported), (DME) Syringe & Needle,Insulin,1 ml (Insulin Syringe), SYR SUBCUT DAILY, (DME) Past Medical History Past Medical History: Peripheral Neuropathy, Congestive Heart Failure, Hypertension, Myocardial Infarction, BPH, Diabetes, HIV, Anxiety, Depression Past Surgical History: noncontributory Patient History: FH: diabetes mellitus (Sister,) FH: thyroid condition Alcohol Use: Heavy Drug Use: marijuana, methamphetamine Review of Systems All Other Systems at this time: Reviewed and Negative ROS As stated above in the HPI, otherwise all systems are reviewed and negative. Physical Exam Vital Signs: Temperature: 97.6, Source: Oral, Heart Rate: 97, Respiratory Rate: 18, BP: 143/87, Pulse Oximetry: 96, Weight: 60.500 Physical Exam General: Alert, no apparent distress. HEENT: PERRL, EOMI, no injection, moist mucous membranes. Neck: Full range of motion. Respiratory: Lungs clear, no respiratory distress. Chest: No accessory muscle use. Cardiovascular: Regular rate and rhythm, no murmurs. Gastrointestinal: Soft, nontender, nondistended. Bowels sounds present. Extremities: Normal range of motion, no deformity. Neurologic: Oriented x4. Psychiatric: Normal mood and affect. Skin: Normal color, warm and dry. No edema, no ecchymosis. Progress Results/Orders Results/Orders Orders - GILMER STEWART POST ADOPTION COORDINATOR BMP (08/21/25 19:02) Lipase (08/21/25 19:02) CMP (08/21/25 19:02) Ua W/Microscopic, Cult If Ind (08/21/25 19:10) Completed Orders - GILMER STEWART POST ADOPTION COORDINATOR Cbc/Diff (08/21/25 19:02) Electrocardiogram (08/21/25 ) Normal Saline 1000ml (0.9% Sodium Chlori (08/21/25 19:15) Insulin Regular, Human (Humulin R 10 Uni (08/21/25 19:15) Medications Received in ER Medications (Trade) Dose Ordered Sig/Aaron Route PRN Reason Start Time Stop Time Status Last Admin Dose Admin (0.9% sodium chloride (NS) 1000ml IV soln) 2,000 ml ONCE ONCE IVB 08/21/25 19:15 08/21/25 19:16 DC 08/21/25 19:21 2,000 ML (HumuLIN R 10 units per 0.1 ML syringe) 10 units ONCE ONCE IV 08/21/25 19:15 08/21/25 19:16 DC 08/21/25 19:22 10 UNITS Vital Signs 08/21/25 08/21/25 18:51 19:04 Temp 97.6 Pulse 97 Resp 16 18 B/P (MAP) 143/87 Pulse Ox 96 Laboratory Tests Test 08/21/25 19:01 08/21/25 19:10 08/21/25 19:15 Glucometer 578 *H Urine Specimen Description Urinal Urine Color Straw Urine Clarity Clear Urine pH 6.5 Urine Specific Eads <=1.005 Urine Protein Negative Urine Glucose (UA) >=1000 H Urine Ketones Negative Urine Occult Blood Negative Urine Nitrite Negative Urine Bilirubin Negative Urine Urobilinogen 0.2 Urine Leukocyte Esterase Negative Volume Urine Centrifuged 10 ml Urine Comment White Blood Count 9.0 Red Blood Count 4.43 L Hemoglobin 13.5 L Hematocrit 40.6 L Mean Corpuscular Volume 91.6 Mean Corpuscular Hemoglobin 30.5 Mean Corpuscular Hemoglobin Concent 33.3 Red Cell Distribution Width 13.2 Platelet Count 432 Mean Platelet Volume 7.4 Neutrophils (%) (Auto) 62.1 Lymphocytes (%) (Auto) 27.2 Monocytes (%) (Auto) 9.1 Eosinophils (%) (Auto) 1.0 Basophils (%) (Auto) 0.6 Neutrophils # (Auto) 5.6 Lymphocytes # (Auto) 2.4 Monocytes # (Auto) 0.8 Eosinophils # (Auto) 0.1 Basophils # (Auto) 0.1 CBC Comment Sodium Level 129 L Potassium Level 4.5 Chloride Level 96 L Carbon Dioxide Level 28.3 Anion Gap 5 L Blood Urea Nitrogen 39 H Creatinine 1.15 H Estimated GFR/1.73 m2 64 BUN/Creatinine Ratio 33.9 H Calcium Level 7.9 L Total Bilirubin 0.3 Aspartate Amino Transf (AST/SGOT) 21 Alanine Aminotransferase (ALT/SGPT) 55 Alkaline Phosphatase 319 H Total Protein 7.1 Albumin 2.7 L Globulin 4.4 H Albumin/Globulin Ratio 0.6 L Lipase 70 Chemistry Comments Medical Decision Making Findings With the resident on staff about this patient and he graciously acknowledged that the patient meets criteria for admission secondary to his pre-existing diagnoses of uncontrolled diabetes and HIV along with a being immune compromised Differential Dx:Considerations: Include: Appendicitis, Bowel obstruction, Cholecysitis, Dehydration, Diabetes, Diabetic coma, DKA, Electrolyte abnormality, Encephalopathy, Gastritis, Hepatitis, Hyperglycemia, Hyperosmolar state, Hypoglycemia, Pancreatitis, Pyelonephritis, UTI, Other Departure Disposition: ADMITTED INPATIENT Impression: Primary Impression: Diabetes mellitus Additional Impressions: Medical non-compliance Hyperosmolality Chest pain Condition: Stable Referrals: NO PRIMARY CARE PROVIDER (PCP) Signature Scribe Signature: gt Attestation: Scribed for Gilmer Stewart Np by Gilmer Rushing NP . 08/21/25 19:43 GILMER STEWART NP Aug 21, 2025 19:10
[2025-08-21] MEDS: normal saline 1000ML IV soln IVB ONE (19:21)
[2025-08-21] MEDS: insulin regular, human 10 units/0.1 ml syringe IV ONE ×2 (19:22→22:00)
--- NOTE | 2025-08-21 19:27 | ELECTROCARDIOGRAPH REPORT ---
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
[2025-08-21 19:28] LABS: MEAN PLATELET VOLUME 7.4 FL (7.4-10.4); RED CELL DISTRIBUTION WIDTH 13.2 % (11.5-14.5)
[2025-08-21 19:34] LABS: LEUKOCYTE ESTERASE ,URINE NEGATIVE (Neg); NITRITES, URINE NEGATIVE (Neg); OCCULT BLOOD,URINE NEGATIVE (Neg)
[2025-08-21 19:35] LABS: UA COLLECTION TYPE URINAL
[2025-08-21 19:38] LABS: CREATININE 1.15 MG/DL (0.60-1.10); TOTAL CARBON DIOXIDE 28.3 MMOL/L (24-32); eCRCL 56 ML/MIN; eGFR 64 ML/MIN
[2025-08-21 19:45] LABS: SQUAMOUS EPITHELIAL CELL,UR FEW /LPF (FEW)
[2025-08-21] MEDS ORDERED: ringers solution, lacted 1,000 ML IV SCH (21:05)
[2025-08-21] MEDS ORDERED: magnesium hydroxide 30ml (MOM) UD suspension PO PRN (21:05)
[2025-08-21] MEDS ORDERED: sodium phosphate inj. 30 MMOL in dextrose 5%-water 250 ML IV PRN (21:05)
[2025-08-21] MEDS ORDERED: Insulin Reg/NS 100units/100mL 100 ML IV SCH (21:05)
[2025-08-21] MEDS ORDERED: potassium Cl 40MEQ/270ML bag 270 ML IV PRN (21:05)
[2025-08-21] MEDS ORDERED: magnesium sulf-water 4G/100mL 100 ML IV PRN (21:05)
[2025-08-21] MEDS ORDERED: morphine 4 MG/ML inj SYRINge IV PRN (21:05)
[2025-08-21] MEDS ORDERED: normal saline 1000ml 1,000 ML IV SCH (21:05)
[2025-08-21] MEDS ORDERED: magnesium sulf-water 2g/50mL 50 ML IV PRN ×2 (21:05)
[2025-08-21] MEDS: ringers solution, lacted 1,000 ML IV SCH (21:05)
[2025-08-21] MEDS ORDERED: potassium Cl 20 mEq SR tablet PO PRN ×2 (21:05)
[2025-08-21] MEDS ORDERED: dextrose 50%-water 50ml dispensing syringe IV PRN (21:05)
[2025-08-21] MEDS ORDERED: potassium Cl 40MEQ/1/2NS 520ml 520 ML IV PRN ×2 (21:05)
[2025-08-21] MEDS ORDERED: sodium phos 15mmol/D5 255mL 255 ML IV PRN (21:05)
[2025-08-21] MEDS ORDERED: magnesium Cl slow-release 64mg tablet PO PRN (21:05)
[2025-08-21] MEDS ORDERED: ondansetron/PF 4mg/2ml inj IV PRN (21:05)
[2025-08-21 21:33] LABS: PHOSPHORUS 2.7 MG/DL (2.3-4.5)
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
[2025-08-22] VITALS (7 sets, daily range): BP systolic 102–145; BP diastolic 71–87; PULSE 74–101; RESP 15–22; TEMP 97.4–97.8; O2SAT 97–100
[2025-08-22] MEDS ORDERED: DEXTROSE 15 GM of carb/4 tabs (each vial/BOTTLE has 4 tablets) PO PRN ×2 (00:20)
[2025-08-22] MEDS ORDERED: glucagon, human recombinant 1mg kit SUBCUT PRN (00:20)
[2025-08-22] MEDS ORDERED: dextrose 50%-water 50ml dispensing syringe IV PRN ×3 (00:20→17:35)
[2025-08-22] MEDS: insulin regular, human 10 units/0.1 ml syringe IV ONE (03:08)
[2025-08-22] MEDS: mag hydrox/Alum hydrox/simeth 30ml oral suspension PO PRN (05:10)
[2025-08-22] MEDS ORDERED: INSULIN LISPRO 100 UNIT/ML INSULN.PEN MULTI-DOSE SQ SCH (07:00)
[2025-08-22] MEDS: K and/or MAG REPLACEMENT MC SCH (08:00)
[2025-08-22] MEDS: multivitamins, therapeutics tablet PO SCH (08:00)
[2025-08-22] MEDS: docusate sod 100mg capsule PO SCH (08:00)
[2025-08-22] MEDS: heparin, porcine 5000 units/ml vial SQ SCH (08:55)
[2025-08-22] MEDS: INSULIN LISPRO 100 UNIT/ML INSULN.PEN MULTI-DOSE SQ SCH ×4 (08:59→20:28)
[2025-08-22 10:10] LABS: MEAN PLATELET VOLUME 7.3 FL (7.4-10.4); RED CELL DISTRIBUTION WIDTH 13.2 % (11.5-14.5)
[2025-08-22 10:23] LABS: CHOL/HDL RATIO 2.4 (0.00-4.99); CREATININE 0.73 MG/DL (0.60-1.10); LDL CHOLESTEROL 62 MG/DL (50-100); TOTAL CARBON DIOXIDE 27.1 MMOL/L (24-32); eCRCL 89 ML/MIN; eGFR > 90 ML/MIN
[2025-08-22 11:19] LABS: HIV ANTIBODY 1&2 RAPID NON-REACTIVE (Neg)
--- NOTE | 2025-08-22 11:21 | RADIOLOGY REPORT ---
Indication: Chronic abdominal pain Technique: CT axial images of the abdomen and pelvis are obtained without contrast. Coronal and sagittal reformats were obtained. Radiation Dose Information: CTDI volume is 8.3 mGy. Dose-length product is 405 mGy*cm Comparison: None FINDINGS: There is limited interpretation of the abdomen and pelvis without administration of intravenous contrast. Small bilateral pleural effusions. Adrenal glands, spleen, pancreas and liver unremarkable in shape. No CT evidence for cholelithiasis. Kidneys demonstrate no hydronephrosis /nephrolithiasis 2.8 cm left renal cyst. Stomach partially distended. Small bowel loops normal in caliber. Moderate volume stool in the colon. No secondary signs for appendicitis. Abdominal aortic atherosclerotic disease. Bladder partially distended. No free pelvic fluid. No inguinal lymphadenopathy. No aggressive osseous process. Moderate to advanced thoracolumbar degenerative disc disease. IMPRESSION: Limited evaluation without contrast. Small bilateral pleural effusions. Atherosclerotic disease. No hydronephrosis / nephrolithiasis. Moderate volume stool within the colon. Soft tissue edema / anasarca. Other findings as described.
--- NOTE | 2025-08-22 15:04 | PROGRESS NOTE- Residence ---
Progress Note - Resident Providers to CC Resident Creating Document: BILL VALADEZ, JAYJAY ~ Antibiotic Timeout Antibiotic Ordered?: No Subjective Patient was seen and examined on bedside, he said he dont want to go to [facility] because he thinks mission people thinks he is too sick to be there and patient dont want to go to mission. He was requesting for moprhine because he complains of pain all over in body. In addition to that he was requesting for food. Objective Vital Signs Date Time Temp Pulse Resp B/P (MAP) Pulse Ox O2 Delivery O2 Flow Rate FiO2 08/22/25 11:00 97.7 90 17 102/79 (87) 99 Room Air Result Diagram: 08/22/2591808/22/25918 Physical Examination General: Awake and Alert, no acute distress. Patien was angry because of food. HEENT: Conjunctiva pink, Sclera clear, Mucus Membranes dry Neck: Supple without masses and tenderness. Resp: Lungs clear to auscultation bilaterally. Heart: Regular Rate and rhythm, normal S1 and S2 Abdomen: Soft and non tender no organomegaly Extremities: No cyanosis clubbing or edema, dry wounds on both legs Skin: Warm and Dry. Neurological: Speech is clear, alert, and oriented x 4, no gross neurological deficits Advance Care Planning Advanced Care plannin - 30 Minutes Assessment Assessment 1. Hyperosmolar Hyperglycemic State (HHS), recurrent due to medication noncompliance Bilateral Lower extremity Neuropathy Presented with glucose 580 mg/dL, serum osmolarity 319 no acidosis or ketones History of insulin-dependent diabetes, non-adherent after recent discharge (08/16/25) because RV was impounded and medications left inside No DKA features; anion gap normal, no acidosis or ketones Dehydrated but at risk for fluid overload given HFrEF (EF 1015%). Precipitated by social instability, homelessness Plan: Patient received 3 L of IV fluid boluses, held maintenance fluid infusion in view of HFrEF Transitioned from IV insulin drip to subcutaneous insulin regimen: Lantus 25 U nightly. Insulin lispro 3 units with sliding scale with meals Monitor glucose q4h until stable Sodium levels 129; pseudohyponatremia secondary to hyperglycemia HbA1c (prior >12%). 08/22/25 HHS resolved Blood glucose 230 Started patient on Lantus 35 units at night, lispro 15 units TID with meals and and high-dose supplemental protocol, Inpatient goal of blood glucose 140-180 Monitor blood glucose q.6h until stable 2. Heart Failure with Reduced Ejection Fraction (HFrEF, EF 1015%) chronic, severe, currently compensated Echo (08/16/25): severely reduced LV systolic function (EF 1015%), RV dilated with reduced function, PASP 66 mmHg, moderate MR and TR. Currently no pulmonary congestion or orthopnea; lower extremity edema improved from prior admission Nonadherence to GDMT since discharge High risk for recurrent decompensation 08/22/25 Continue strict I&O, maintain euvolemia Patient is on telemetry Cardiology consult would be needed in long-term Reinforce lifevest use Continued metoprolol 25 mg b.i.d. Held spironolactone, isosorbide mononitrate,, Lasix and Jardiance in view of soft blood pressures 3. Coronary Artery Disease s/p PCI chronic stable angina pattern Recurrent chest discomfort over months, 05/22 intensity, non-exertional, often anxiety-related. No new ischemic changes reported; troponin pending. On dual antiplatelet therapy and statin at discharge Continue aspirin 81 mg and clopidogrel 75 mg, atorvastatin 40 mg daily If chest pain recurs, consider nitroglycerin PRN and evaluate for ischemia vs anxiety component Follow-up with cardiology within 1 week post-discharge 08/22/25 Continue aspirin 81 mg clopidogrel 75 mg, atorvastatin 40 mg daily If chest pain recurs, consider nitroglycerin PRN and evaluate for ischemia vs anxiety component Trop negative 4. HIV infection chronic, stable but medication adherence uncertain Known HIV per past admission records; unclear ART adherence Patient however denies having a diagnosis which HIV Plan: Ordered CD4 count and HIV viral load Reinstitute ART as soon as confirmed. ID consult for continuity of ART Reinforce importance of medication continuity even during unstable housing. 08/22/25 HIV 1 and 2 antibody negative HIV 1 PCR pending CD4,CD8 count pending 5. Chronic abdominal pain with bowel and bladder incontinence likely neuropathic / spinal etiology 4-month history of intermittent lower abdominal pain (04/22) associated with fecal and urinary incontinence, often simultaneously during urination No acute abdomen, peritonitis, or GI bleeding symptoms. Patient had prior back surgery years ago possible lumbosacral pathology Plan: CT abdomen/pelvis ordered No acute abdominal findings MRI lumbosacral spine ordered, as patient has chronic symptoms, he can follow outpatient for further management Outpatient follow-up with neurology No saddle anesthesia; rectal tone normal 08/22/25 CT SCAN ABDOMEN Small bilateral pleural effusions. Atherosclerotic disease. No hydronephrosis / nephrolithiasis. Moderate volume stool within the colon. Soft tissue edema / anasarca. AWAITING MRI LUMBOSACRAL SPINE 6. Polysubstance use disorder (methamphetamine, alcohol) in remission Reports last meth use 4 months ago; drinks alcohol occasionally No evidence of acute intoxication or withdrawal Plan: Continue mild alcohol protocol Continue thiamine, folate, and multivitamin supplementation Substance abuse navigator and social worker psychiatric consulted 7. Psychosocial instability, medical noncompliance, and homelessness Recently homeless after RV impoundment; unable to retrieve meds or LifeVest print room worker consulted 9. Hypertension chronic, controlled on GDMT Continue Losartan, Metoprolol, Spironolactone as above Monitor BP closely; hold nitrates or ARB if hypotensive 08/22/25 held losartan, spironolactone and nitrates in view of soft blood pressure. 10. LEOBARDO, prerenal; vasomotor nephropathy Creatinine 1.15, was normal during previous admission Received IV boluses Continue monitoring BMP 08/22/25 LEOBARDO resolved Code status: Full code DVT prophylaxis: heparin Diet: Carb controlled diet Disposition: Patient is noncompliant with medication, he would benefit from LifeVest, monitor blood glucose and patient blood pressures are on soft side. Patient has a history of homelessness and would require replacement. Bill Valadez PGY1 IM Date of Service: Aug 22, 2025 Billing Provider: MARGUERITE HAYES MD Common Visit Codes: [id number] INP/OBS CARE(HIGH) BILL VALADEZ, RES Aug 22, 2025 15:04 MARGUERITE HAYES MD Aug 23, 2025 07:13
[2025-08-22] MEDS: Insulin Reg/NS 100units/100mL 100 ML IV SCH (17:55)
[2025-08-22 18:04] LABS: ABG BASE EXCESS 0.5 mmol/L (-2.0-3.0); ABG HCO3 23.7 mmol/L (21.0-28.0); ABG OXYGEN SATURATION 97.0 % (94.0-98.0); ABG PCO2 (T) 32.8 mmHg (35.0-48.0); ABG PH (T) 7.474 (7.350-7.450); ABG PO2 (T) 86.2 mmHg (83.0-108.0); ALLEN'S TEST POSITIVE; FCOHb 0.2 % (0.5-1.5); FHHb 3.0 % (0.0-5.0); FIO2 21.0 mmHg/%; FLOW 0 L/min; FMetHb 0.1 % (0.0-1.5); FO2Hb 96.7 % (94.0-98.0); MODE RA; PATIENT TEMPERATURE 36.4; TOTAL HEMOGLOBIN 13.3 G/dl (13.5-17.5)
[2025-08-22] MEDS ORDERED: insulin glargine (Lantus) pen - multi-dose SQ SCH (21:00)
[2025-08-22] MEDS: insulin glargine (Lantus) pen - multi-dose SQ SCH (21:00)
[2025-08-22] MEDS: morphine 4 MG/ML inj SYRINge IV PRN (21:55)
[2025-08-23 00:17] LABS: CREATININE 0.83 MG/DL (0.60-1.10); TOTAL CARBON DIOXIDE 26.5 MMOL/L (24-32); eCRCL 78 ML/MIN; eGFR > 90 ML/MIN
[2025-08-23 02:00] VITALS: BP 152/67; PULSE 107; RESP 18; TEMP 97.4; O2SAT 95
[2025-08-23 06:00] VITALS: BP 122/76; PULSE 86; RESP 15; TEMP 98.1; O2SAT 96
[2025-08-23 06:40] LABS: MEAN PLATELET VOLUME 7.4 FL (7.4-10.4); RED CELL DISTRIBUTION WIDTH 13.3 % (11.5-14.5)
[2025-08-23 07:00] LABS: LEUKOCYTE ESTERASE ,URINE NEGATIVE (Neg); NITRITES, URINE NEGATIVE (Neg); OCCULT BLOOD,URINE NEGATIVE (Neg)
[2025-08-23 07:04] LABS: CREATININE 0.69 MG/DL (0.60-1.10); TOTAL CARBON DIOXIDE 25.6 MMOL/L (24-32); eCRCL 94 ML/MIN; eGFR > 90 ML/MIN
[2025-08-23 07:22] LABS: URINE AMPHETAMINE SCREEN NEGATIVE (Neg); URINE BARBITUATE SCREEN NEGATIVE (Neg); URINE BENZODIAZEPINES SCREEN NEGATIVE (Neg); URINE CANNABINOID SCREEN NEGATIVE (Neg); URINE COCAINE SCREEN NEGATIVE (Neg); URINE METHADONE SCREEN NEGATIVE (Neg); URINE OPIATE SCREEN POSITIVE (Neg); URINE PHENCYCLIDINE SCREEN NEGATIVE (Neg)
[2025-08-23 07:34] LABS: UA COLLECTION TYPE CLN CATCH MIDSTREAM
[2025-08-23 08:00] VITALS: RESP 15; O2SAT 96
[2025-08-23] MEDS: aspirin 81mg, enteric-coated 1 TAB TABLET.DR PO SCH (09:56)
[2025-08-23] MEDS: metoprolol succinate 25mg (24-HOUR) SR. Tablet PO SCH (09:57)
[2025-08-23 11:00] VITALS: BP 110/63; PULSE 87; RESP 13; TEMP 97.5; O2SAT 97
[2025-08-23] MEDS ORDERED: MULT-25 PO (12:05)
[2025-08-23] MEDS ORDERED: FOLI1TAB27 PO (12:05)
[2025-08-23 15:00] VITALS: BP 110/63; PULSE 87; RESP 13; TEMP 97.5; O2SAT 97
[2025-08-23 15:11] LABS: % CD 4 POS. LYMPH. 43.1 % (30.8-58.5); % CD 8 POS. LYMPH. 40.8 % (12.0-35.5)
--- NOTE | 2025-08-23 16:18 | DISCHARGE SUMMARY-Residence ---
Discharge Summary Providers to CC Resident Creating Document: ROLDAN VALADEZ RES ~ Discharge Summary Admission Diagnosis: HHS Hospital Course DATE OF ADMISSION: 08/21/25 DATE OF DISCHARGE: 08/23/25 Discharge Diagnosis\Comment: Possible Hyperosmolar Hyperglycemic State (HHS), Bilateral Lower extremity Neuropathy Diabetes mellitus insulin-dependent Heart Failure with Reduced Ejection Fraction (HFrEF, EF 1015%) Coronary Artery Disease S/P Stent Chronic abdominal pain with bowel and bladder incontinence likely neuropathic / spinal etiology Polysubstance use disorder (methamphetamine, alcohol) Hypertension LEOBARDO prerenal; vasomotor nephropathy Operations\Procedures: None Consultants: None Complications: None Condition on DC: Stable New Medications: Folic Acid* (Folic Acid*) Y Tab 1 MG PO DAILY for 30 Days, #30 TAB Multivitamin with Folic Acid (Thera Tablet) 400 Mcg Tablet 1 EACH PO Q24H for 30 Days, #30 TAB Continued Medications: Aspirin (Aspirin EC) 81 Mg Tablet.dr 1 TAB PO DAILY Atorvastatin Calcium (Atorvastatin Calcium) 40 Mg Tablet 1 TAB PO DAILY for 30 Days, #30 TAB Blood Sugar Diagnostic (Accu-Chek Guide Test Strip) 1 Each Strip Clopidogrel Bisulfate (Clopidogrel) 75 Mg Tablet 1 TAB PO DAILY Empagliflozin (Jardiance) 10 Mg Tablet 1 TAB PO DAILY Furosemide (Lasix) 20 Mg Tablet 40 MG PO DAILY for 30 Days, #60 TAB Insulin Aspart (Insulin Aspart) 100 Unit/Ml Vial 15 UNITS SQ TIDWM for 30 Days, #14 VIAL Insulin Glargine,Hum.rec.anlog (Basaglar Kwikpen U-100) 100 Unit/Ml (3 Ml) Insuln.pen SQ Insulin Glargine,Hum.rec.anlog* (Lantus*) 100 Unit/1 Ml Vial 25 UNITS SQ DAILY for 30 Days, #10 VIAL Isosorbide Mononitrate (Isosorbide Mononitrate Er) 30 Mg Tab.er.24h 1 TAB PO DAILY for 30 Days, #30 TAB.SR Losartan Potassium (Losartan Potassium) 25 Mg Tablet 25 MG PO DAILY for 30 Days, #30 TAB Metoprolol Succinate (Metoprolol Succinate) 25 Mg Tab.sr.24h 1 TAB PO DAILY for 30 Days, #30 TAB.SR Spironolactone (Aldactone) 25 Mg Tablet 25 MG PO DAILY@0830 for 30 Days, #30 TAB Discharge Summary: History of Present Illness As Per Admitting Physician 64-year-old male with a significant past medical history of insulin-dependent diabetes mellitus, heart failure with reduced ejection fraction (EF 1015%), coronary artery disease s/p stent, HIV, hypertension, and polysubstance use disorder (methamphetamine and alcohol), who was recently discharged on 08/16/25 after treatment for hyperosmolar hyperglycemic state (HHS) and acute decompensated heart failure, now presents to the ED after bystanders called 911 when he was found weak and unwell in a parking lot. The patient reports that his RV was impounded shortly after discharge, leaving him homeless. He was unable to obtain or take his discharge medications, including insulin and heart failure regimen. He denies actively seeking care today and expresses anger and frustration toward nosy people who called emergency services. He reports intermittent chest pain over several months, described as 7/10 pressure-like episodes, non-radiating, sometimes associated with anxiety but no acute worsening today. He denies current shortness of breath or orthopnea. Also claims he followed up with the a nutritional services director in [place] who recommended medical managed for his CHF. He also complains of chronic abdominal discomfort (6/10) for several months with fecal and urinary incontinence occurring simultaneously during urination. No hematochezia, melena, or hematuria reported. Denies recent methamphetamine use, claiming last use was 4 months ago. On arrival, he appeared angry, agitated, and poorly groomed, but was hemodynamically stable. Initial labs: glucose 580 mg/dL, serum osmolarity 319 mOsm/kg, improved to 300 after insulin and IV fluids. No anion gap acidosis. Troponin normal Given his known EF 1015%, cautious fluid management was implemented. He received 3 L IV boluses, his maintenance fluid was initially stopped. He was started on subcutaneous insulin regimen, not on drip, given absence of acidosis and improving osmolarity Hospital course 64-year-old male with a significant past medical history of insulin-dependent diabetes mellitus, heart failure with reduced ejection fraction (EF 1015%), coronary artery disease s/p stent, HIV, hypertension, and polysubstance use disorder (methamphetamine and alcohol), who was recently discharged on 08/16/25 after treatment for hyperosmolar hyperglycemic state (HHS) and acute decompensated heart failure, now presents to the ED after bystanders called 911 when he was found weak and unwell in a parking lot. This patient is noncompliant with his medication, due to which there was suspiciousness of HHS,Patient blood glucose was poorly controlled due to which he was placed on insulin drip and multiple doses of insulin were given based on his blood glucose,His blood glucose went above 550 during hospital stay. Patient is very non compliant with his medications which could be reason for poorly blood glucose. In addition to that he also has a history of heart failure with reduced ejection fraction for which initially GDMT was hold in view of soft blood pressure0, on discharge full GDMT was resumed as blood pressures were going in right direction, he was also advised to wear LifeVest on admission and he already received lifevest equipment, patient is very noncompliant and for coronary artery diseae s/p stent continue Plavix, aspirin and atorvastatin 40 mg. Patient also had history of HIV as per medical record, HIV 1 and 2 antibody were negative and HIV 1 is awaiting. In view of his history of polysubstance abuse or substance use navigator was consulted. Apart from that he also had LEOBARDO which was treated with IV fluids and creatinine came back to normal on discharge. Patient is medically stable for discharge, he has EF of 10-15% and was advised to continue wear Lifevest and take medications as prescribed. He was also counselled on insulin regimen and medication compliance importance. Physical Examination General: awake, alert oriented to place, time, and person HEENT: No pallor present, no icterus, moist mucous membranes Neck: No masses and tenderness Resp: Unlabored. Lungs clear to auscultation bilaterally. Chest: Normal expansion. Cardiovascular: Regular Rate and rhythm, normal S1 and S2 without murmur, rub or gallop Abdomen: Soft and non tender in epigastrium, no organomegaly, no guarding and rigidity, bowel sounds present Neuro: No focal weakness in the upper and lower limb muscles, power of the muscles 5/5 bilateral upper and lower extremities, normal reflexes bilaterally. Cranial nerves intact Extremities: No cyanosis,clubbing or edema Skin: Warm and Dry. Psych: Normal affect Laboratory Tests Test 08/21/25 19:01 08/21/25 19:10 08/21/25 19:15 08/21/25 21:37 Glucometer 578 mg/dl 330 mg/dl Urine Specimen Description Urinal Urine Color Straw Urine Clarity Clear Urine pH 6.5 Urine Specific [place] <=1.005 Urine Protein Negative mg/dl Urine Glucose (UA) >=1000 mg/dl Urine Ketones Negative mg/dl Urine Occult Blood Negative Urine Nitrite Negative Urine Bilirubin Negative Urine Urobilinogen 0.2 E.U/dL Urine Leukocyte Esterase Negative Urine RBC 0-2 /HPF Urine WBC 0-4 /HPF Urine Squamous Epithelial Cells Few /LPF Urine Bacteria Few /HPF Urine Culture Indicated Not ind Volume Urine Centrifuged 10 ml Urine Comment White Blood Count 9.0 X10'3 Red Blood Count 4.43 X10'6 Hemoglobin 13.5 g/dl Hematocrit 40.6 % Mean Corpuscular Volume 91.6 FL Mean Corpuscular Hemoglobin 30.5 PG Mean Corpuscular Hemoglobin Concent 33.3 g/dL Red Cell Distribution Width 13.2 % Platelet Count 432 X10'3 Mean Platelet Volume 7.4 FL Neutrophils (%) (Auto) 62.1 % Lymphocytes (%) (Auto) 27.2 % Monocytes (%) (Auto) 9.1 % Eosinophils (%) (Auto) 1.0 % Basophils (%) (Auto) 0.6 % Neutrophils # (Auto) 5.6 X10'3 Lymphocytes # (Auto) 2.4 X10'3 Monocytes # (Auto) 0.8 X10'3 Eosinophils # (Auto) 0.1 X10'3 Basophils # (Auto) 0.1 X10'3 CBC Comment Sodium Level 129 MMOL/L Potassium Level 4.5 MMOL/L Chloride Level 96 MMOL/L Carbon Dioxide Level 28.3 MMOL/L Anion Gap 5 Blood Urea Nitrogen 39 MG/DL Creatinine 1.15 MG/DL Estimated GFR/1.73 m2 64 ML/MIN BUN/Creatinine Ratio 33.9 Glucose Level 584 MG/DL Osmolality 316 MOSM/K Calcium Level 7.9 MG/DL Phosphorus Level 2.7 MG/DL Magnesium Level 2.0 MG/DL Total Bilirubin 0.3 MG/DL Aspartate Amino Transf (AST/SGOT) 21 U/L Alanine Aminotransferase (ALT/SGPT) 55 U/L Alkaline Phosphatase 319 IU/L Troponin I High Sensitivity 53 ng/L Total Protein 7.1 G/DL Albumin 2.7 G/DL Globulin 4.4 G/DL Albumin/Globulin Ratio 0.6 Lipase 70 U/L Chemistry Comments Test 08/21/25 23:46 08/22/25 01:24 08/22/25 03:07 08/22/25 05:15 Glucometer 83 mg/dl 268 mg/dl 325 mg/dl 210 mg/dl Test 08/22/25 07:05 08/22/25 09:19 08/22/25 11:29 08/22/25 17:26 Glucometer 265 mg/dl 189 mg/dl 595 mg/dl White Blood Count 9.3 X10'3 Red Blood Count 4.19 X10'6 Hemoglobin 12.9 g/dl Hematocrit 38.0 % Mean Corpuscular Volume 90.7 FL Mean Corpuscular Hemoglobin 30.9 PG Mean Corpuscular Hemoglobin Concent 34.1 g/dL Red Cell Distribution Width 13.2 % Platelet Count 396 X10'3 Mean Platelet Volume 7.3 FL Neutrophils (%) (Auto) 61.3 % Lymphocytes (%) (Auto) 29.5 % Monocytes (%) (Auto) 7.3 % Eosinophils (%) (Auto) 1.4 % Basophils (%) (Auto) 0.5 % Neutrophils # (Auto) 5.7 X10'3 Lymphocytes # (Auto) 2.7 X10'3 Monocytes # (Auto) 0.7 X10'3 Eosinophils # (Auto) 0.1 X10'3 Basophils # (Auto) 0.0 X10'3 CBC Comment Sodium Level 138 MMOL/L Potassium Level 4.1 MMOL/L Chloride Level 106 MMOL/L Carbon Dioxide Level 27.1 MMOL/L Anion Gap 5 Blood Urea Nitrogen 20 MG/DL Creatinine 0.73 MG/DL Estimated GFR/1.73 m2 > 90 ML/MIN BUN/Creatinine Ratio 27.4 Glucose Level 231 MG/DL Calcium Level 7.6 MG/DL Magnesium Level 1.8 MG/DL Total Bilirubin 0.5 MG/DL Aspartate Amino Transf (AST/SGOT) 149 U/L Alanine Aminotransferase (ALT/SGPT) 141 U/L Alkaline Phosphatase 291 IU/L Total Protein 6.1 G/DL Albumin 2.3 G/DL Globulin 3.8 G/DL Albumin/Globulin Ratio 0.6 Triglycerides Level 37 MG/DL Cholesterol Level 123 MG/DL LDL Cholesterol 62 MG/DL HDL Cholesterol 51 MG/DL Cholesterol/HDL Ratio 2.4 Chemistry Comments Percent CD4 Cells 43.1 % T-Lymphocyte CD4/CD8 Ratio 1.06 Percent CD8 Cells 40.8 % HIV (1&2) Antibody Non-reactive Test 08/22/25 18:01 08/22/25 18:43 08/22/25 19:53 08/22/25 21:54 Blood Gas Specimen Type Arterial Blood Gas Puncture Site Rr O2 Saturation 97.0 % Arterial Blood pH (Temp corrected) 7.474 Arterial Blood pCO2 (Temp correct) 32.8 mmHg Arterial Blood pO2 (Temp corrected) 86.2 mmHg Arterial Blood PO2/FiO2 Ratio 4.26 mmHg/% Arterial Blood HCO3 23.7 mmol/L Arterial Blood Base Excess 0.5 mmol/L Arterial Blood Oxyhemoglobin 96.7 % Arterial Blood Carboxyhemoglobin 0.2 % Arterial Blood Methemoglobin 0.1 % Arterial Blood Deoxyhemoglobin 3.0 % Herber Test Positive Blood Gas Hemoglobin 13.3 G/dl Blood Gas Temperature 36.4 Blood Gas Liter Flow 0 L/min Blood Gas Modality Ra FiO2 21.0 mmHg/% Glucometer 530 mg/dl 362 mg/dl 282 mg/dl Test 08/22/25 23:07 08/22/25 23:13 08/22/25 23:47 08/23/25 00:47 Glucometer 265 mg/dl 111 mg/dl 87 mg/dl Sodium Level 135 MMOL/L Potassium Level 4.1 MMOL/L Chloride Level 102 MMOL/L Carbon Dioxide Level 26.5 MMOL/L Anion Gap 7 Blood Urea Nitrogen 30 MG/DL Creatinine 0.83 MG/DL Estimated GFR/1.73 m2 > 90 ML/MIN BUN/Creatinine Ratio 36.1 Glucose Level 124 MG/DL Calcium Level 7.8 MG/DL Albumin 2.2 G/DL Chemistry Comments Test 08/23/25 01:46 08/23/25 04:15 08/23/25 05:45 08/23/25 05:56 Glucometer 120 mg/dl 199 mg/dl Urine Specimen Description Cln catch midstream Urine Color Straw Urine Clarity Clear Urine pH 6.0 Urine Specific [place] 1.015 Urine Protein Negative mg/dl Urine Glucose (UA) 250 mg/dl Urine Ketones Negative mg/dl Urine Occult Blood Negative Urine Nitrite Negative Urine Bilirubin Negative Urine Urobilinogen 0.2 E.U/dL Urine Leukocyte Esterase Negative Urine Culture Indicated Not ind Volume Urine Centrifuged 10 ml Urine Comment Urine Opiates Screen Positive Urine Methadone Screen Negative Urine Fentanyl Screen Negative Urine Barbiturates Screen Negative Urine Phencyclidine Screen Negative Urine Amphetamines Screen Negative Urine Benzodiazepines Screen Negative Urine Cocaine Screen Negative Urine Cannabinoids Screen Negative Drug Screen Comment White Blood Count 9.8 X10'3 Red Blood Count 4.12 X10'6 Hemoglobin 12.6 g/dl Hematocrit 37.4 % Mean Corpuscular Volume 90.7 FL Mean Corpuscular Hemoglobin 30.6 PG Mean Corpuscular Hemoglobin Concent 33.7 g/dL Red Cell Distribution Width 13.3 % Platelet Count 370 X10'3 Mean Platelet Volume 7.4 FL Neutrophils (%) (Auto) 62.5 % Lymphocytes (%) (Auto) 27.8 % Monocytes (%) (Auto) 7.6 % Eosinophils (%) (Auto) 1.5 % Basophils (%) (Auto) 0.6 % Neutrophils # (Auto) 6.1 X10'3 Lymphocytes # (Auto) 2.7 X10'3 Monocytes # (Auto) 0.7 X10'3 Eosinophils # (Auto) 0.1 X10'3 Basophils # (Auto) 0.1 X10'3 CBC Comment Sodium Level 134 MMOL/L Potassium Level 4.5 MMOL/L Chloride Level 101 MMOL/L Carbon Dioxide Level 25.6 MMOL/L Anion Gap 7 Blood Urea Nitrogen 26 MG/DL Creatinine 0.69 MG/DL Estimated GFR/1.73 m2 > 90 ML/MIN BUN/Creatinine Ratio 37.7 Glucose Level 232 MG/DL Calcium Level 7.7 MG/DL Magnesium Level 1.8 MG/DL Total Bilirubin 0.4 MG/DL Aspartate Amino Transf (AST/SGOT) 76 U/L Alanine Aminotransferase (ALT/SGPT) 112 U/L Alkaline Phosphatase 261 IU/L Total Protein 5.8 G/DL Albumin 2.2 G/DL Globulin 3.6 G/DL Albumin/Globulin Ratio 0.6 Chemistry Comments Test 08/23/25 12:29 Glucometer 230 mg/dl Imaging CT abdomen pelvis FINDINGS: There is limited interpretation of the abdomen and pelvis without administration of intravenous contrast. Small bilateral pleural effusions. Adrenal glands, spleen, pancreas and liver unremarkable in shape. No CT evidence for cholelithiasis. Kidneys demonstrate no hydronephrosis /nephrolithiasis 2.8 cm left renal cyst. Stomach partially distended. Small bowel loops normal in caliber. Moderate volume stool in the colon. No secondary signs for appendicitis. Abdominal aortic atherosclerotic disease. Bladder partially distended. No free pelvic fluid. No inguinal lymphadenopathy. No aggressive osseous process. Moderate to advanced thoracolumbar degenerative d isc disease. IMPRESSION: Limited evaluation without contrast. Small bilateral pleural effusions. Atherosclerotic disease. No hydronephrosis / nephrolithiasis. Moderate volume stool within the colon. Soft tissue edema / anasarca. Other findings as described. *Problems/Diagnosis: (1) Systolic congestive heart failure with reduced left ventricular function, NYHA class 4 Status: Chronic Total Time Spent on D/C: > 30 Minutes Date of Service: Aug 23, 2025 Billing Provider: MARGUERITE HAYES MD Common Visit Codes: [id number] DISCH DAY >30min ROLDAN VALADEZ, RES Aug 23, 2025 16:02 MARGUERITE HAYES MD Aug 24, 2025 07:46
[2025-08-24] MEDS ORDERED: EMPAGLIFLOZIN 10 MG TABLET PO SCH (08:00)
[2025-08-27] MEDS ORDERED: SITA50TA PO (10:32)
[2025-08-27] MEDS ORDERED: INSU100I8 SQ (10:32)
[2025-08-27] MEDS ORDERED: METF-1203 PO (10:32)
[2025-08-27] MEDS ORDERED: LISI2.5T14 PO (10:32)
[2025-08-27] MEDS ORDERED: LANTUS SQ (10:33)
== END 2025-08-23 16:27 | disposition home or self-care (01) | DRG 420 ==
LOC: ER 18:47 → ED HOLD 20:20 → EDBEDREQ 08-22 05:49 → PCU 3S 08-22 07:50
PROVIDERS: ADMIT Internal Medicine Critical Care Medicine; ATTEND Internal Medicine
DX: E11.00 Type 2 diabetes mellitus with hyperosmolarity without nonketotic hyperglycemic-hyperosmolar coma (NKHHC) (principal); N17.0 Acute kidney failure with tubular necrosis; B20 Human immunodeficiency virus [HIV] disease; I11.0 Hypertensive heart disease with heart failure; E11.42 Type 2 diabetes mellitus with diabetic polyneuropathy; N40.0 Benign prostatic hyperplasia without lower urinary tract symptoms; F32.A Depression, unspecified; F41.9 Anxiety disorder, unspecified; I50.22 Chronic systolic (congestive) heart failure; I25.10 Atherosclerotic heart disease of native coronary artery without angina pectoris; F43.10 Post-traumatic stress disorder, unspecified; R32 Unspecified urinary incontinence; F19.90 Other psychoactive substance use, unspecified, uncomplicated; R07.89 Other chest pain; F10.90 Alcohol use, unspecified, uncomplicated; Y90.9 Presence of alcohol in blood, level not specified; I25.2 Old myocardial infarction; Z83.3 Family history of diabetes mellitus; Z91.199 Patient's noncompliance with other medical treatment and regimen due to unspecified reason; Z95.5 Presence of coronary angioplasty implant and graft; Z87.891 Personal history of nicotine dependence; Z59.00 Homelessness unspecified
CPT/HCPCS: 36415; 36600; 74176; 80048; 80053; 80061; 80305; 81001; 81003; 82803; 82948; 83690; 83735; 83930; 84100; 84484; 85018; 85025; 86360; 86703; 87081; 87535; 93005; 96374; 96376; 97116; 97161; 99285; A6250; G0378; J1644; J1815; J2270; J7030; J7120

== ENCOUNTER 2025-08-29 20:26 | Emergency (ER) | payer MEDICAID ==
[~2025-08-29] VITALS: Ht 172.7 cm; Wt 60.0 kg
[~2025-08-29 20:26] MED LIST changes: +FOLI1TAB27 PO; -INSU100I31 SQ; +INSU100I8 SQ; -INSU100V46 SQ; -INSU100V49; -ISOS30TA84 PO; +LISI2.5T14 PO; -LOSA25TA41 PO; +METF-1203 PO; +MULT-25 PO; +SITA50TA PO; -SPIR25TA PO
[2025-08-29 20:37] VITALS: BP 110/69; PULSE 79; RESP 18; O2SAT 100
--- NOTE | 2025-08-29 23:36 | Physician Documentation ---
History of Present Illness ~ Chief Complaint: Medical Clearance Stated Complaint: GEN ILLNESS Time Seen by MD: 21:56 Primary Medical Doctor: none HPI Patient 64-year-old male who reports to the emergency department for evaluation of difficulty breathing shortness of breath. Patient reports that he was arrested earlier today and all of his medications for taken a not given back to him. Patient reports that he has significant heart failure uses a rescue vest along with his heart medications that he does not have at this time. Patient also reports that he is a diabetic. Patient reports that he feels better if he sits up he is unable to breathe when he lies down. Patient reports he has had significant swelling in his legs bilaterally. Reports that they are slightly improved but still swollen. No other symptoms reported at this time. Tetanus within 5 years?: Yes Medication Reconciliation Allergies: Coded Allergies: No Known Allergies (Unverified , 08/21/25) Scheduled Aspirin (Aspirin EC), 1 TAB PO DAILY, (Reported) Atorvastatin Calcium (Atorvastatin Calcium), 1 TAB PO DAILY Clopidogrel Bisulfate (Clopidogrel), 1 TAB PO DAILY, (Reported) Empagliflozin (Jardiance), 1 TAB PO DAILY, (Reported) Folic Acid* (Folic Acid*), 1 MG PO DAILY Furosemide (Lasix), 40 MG PO DAILY Insulin Glargine,Hum.rec.anlog* (Lantus*), 15 UNITS SQ HS Insulin Lispro (Humalog), 0 UNIT SQ ACHS Lisinopril (Lisinopril), 2.5 MG PO DAILY Metformin HCl (Metformin HCl), 1 TAB PO Q12H Metoprolol Succinate (Metoprolol Succinate), 1 TAB PO DAILY Multivitamin with Folic Acid (Thera Tablet), 1 EACH PO Q24H Sitagliptin Phosphate (Januvia), 1 TAB PO DAILY Miscellaneous Medications Blood Sugar Diagnostic (Accu-Chek Guide Test Strip), (Reported) Discontinued Medications Insulin Aspart (Insulin Aspart), 15 UNITS SQ TIDWM Insulin Glargine,Hum.rec.anlog (Basaglar Kwikpen U-100), SQ, (Reported) Insulin Glargine,Hum.rec.anlog* (Lantus*), 25 UNITS SQ DAILY Isosorbide Mononitrate (Isosorbide Mononitrate Er), 1 TAB PO DAILY Losartan Potassium (Losartan Potassium), 25 MG PO DAILY Spironolactone (Aldactone), 25 MG PO DAILY@0830 Durable Medical Equipment Lancets (Accu-Chek Softclix), (Reported), (DME) Syringe & Needle,Insulin,1 ml (Insulin Syringe), SYR SUBCUT DAILY, (DME) Past Medical History Past Medical History: Peripheral Neuropathy, Congestive Heart Failure, Hypertension, Myocardial Infarction, BPH, Diabetes, HIV, Anxiety, Depression Past Surgical History: noncontributory Patient History: FH: diabetes mellitus (Sister,) FH: heart disease FATHER MOTHER FH: thyroid condition Alcohol Use: Heavy Drug Use: marijuana, methamphetamine Review of Systems ROS As stated above in the HPI, otherwise all systems are reviewed and negative. Physical Exam Vital Signs: Temperature: 98.0, Heart Rate: 79, Respiratory Rate: 18, BP: 110/69, Pulse Oximetry: 100, Weight: 60.000 Physical Exam VITALS: Reviewed and as above. GENERAL: Alert, no apparent distress. HEENT: Normocephalic, atraumatic, PERRL, EOMI, dry mucosa, no erythema RESPIRATORY: Lungs clear, slightly diminished in the bilateral lower bases, patient appears to be slightly dyspneic. CHEST: No accessory muscle use, no retractions CV: Regular rate, rhythm, no edema, no murmur, No: JVD GI: Soft, non-tender, bowels sounds present, no rebound, guarding, or rigidity BACK: No CVA tenderness, or swelling MUSCULOSKELETAL No deformities, mild edema noted to bilateral lower extremities. SKIN: Warm and dry, no rash NEURO: Oriented x4, No motor or sensory deficit PSYCH: Normal mood and affect, no agitation Progress Results/Orders Results/Orders Orders - OHLPHILIP CLAY MD Acetaminophen 325mg Tablet (Tylenol Tabl (08/30/25 02:05) Vital Signs 08/29/25 20:37 Temp 98.0 Pulse 79 Resp 18 B/P (MAP) 110/69 Pulse Ox 100 Laboratory Tests Test 08/29/25 20:43 08/29/25 23:58 08/30/25 01:28 Glucometer 294 H White Blood Count 9.3 Red Blood Count 4.27 L Hemoglobin 13.3 L Hematocrit 38.9 L Mean Corpuscular Volume 91.1 Mean Corpuscular Hemoglobin 31.1 H Mean Corpuscular Hemoglobin Concent 34.1 Red Cell Distribution Width 13.2 Platelet Count 370 Mean Platelet Volume 7.2 L Neutrophils (%) (Auto) 52.9 Lymphocytes (%) (Auto) 38.1 Monocytes (%) (Auto) 5.9 Eosinophils (%) (Auto) 2.2 Basophils (%) (Auto) 0.9 Neutrophils # (Auto) 4.9 Lymphocytes # (Auto) 3.5 Monocytes # (Auto) 0.5 Eosinophils # (Auto) 0.2 Basophils # (Auto) 0.1 CBC Comment Sodium Level 136 Potassium Level 4.0 Chloride Level 104 Carbon Dioxide Level 26.6 Anion Gap 5 L Blood Urea Nitrogen 25 H Creatinine 0.73 Estimated GFR/1.73 m2 > 90 BUN/Creatinine Ratio 34.2 H Glucose Level 172 H Calcium Level 8.0 L Total Bilirubin 0.3 Aspartate Amino Transf (AST/SGOT) 36 Alanine Aminotransferase (ALT/SGPT) 63 Alkaline Phosphatase 220 H Troponin I High Sensitivity 161 *H 152 *H Pro-B-Type Natriuretic Peptide 3628 H Total Protein 7.0 Albumin 2.7 L Globulin 4.3 Albumin/Globulin Ratio 0.6 L Chemistry Comments Troponin I High Sens Percent Delta 5 Troponin I Hi Sens Absolute Change -9 Medical Decision Making Additional information obtaine: other Findings This is a 64-year-old male patient with history of heart failure, presenting with likely acute decompensated heart failure causing volume overload and pulmonary edema. The etiology of the decompensation is not certain but is likely due to inability to maintain medication regimen after discharge on the 15 from PCU. Alternative etiologies I considered include cardiac (ACS, valvular disease, arrhythmia, myocarditis/endocarditis, dissection) however given unremarkable trop, ekg, cardiac exam have low suspicion. Also considered but low risk for respiratory cause (COPD, asthma, PE, or PNA), alcohol or drug abuse, endocrine (thyrotoxicosis), and anemia. Plan to give this patient Lasix admit him for CHF exacerbation. Patient hemodynamically stable this time. Discussed this case with my attending Dr. Johnson. Dr. Johnson has graciously agreed to take this patient over. In person handoff was was given. The patient was just recently discharged he has a chronic history of CHF and has an elevated troponin chronically, the patient is in no distress his lungs are cl ear he is well-appearing he is asking for food, he will be discharged with instructions to follow up as an outpatient The patient's EKG was interpreted by me as showing a sinus rhythm with a rate of 84 a normal axis and nonspecific ST abnormalities there was no ST-elevation or ST-depression impression is an abnormal EKG was interpreted by me at 12:36 a.m. Differential Dx:Considerations: Include: Intoxication-Alcohol, Intoxication- Other drug, Personality disorder, Substance abuse disorder, Acute delirium, Closed head injury, Cervical spine injury, Skull fracture, Fracture(s), Abrasion, Contusion, Foreign body, Hematoma, Laceration, Alcohol withdrawl syndrom, Encephalopathy, Hepatitis, Medically stable, Other Departure Disposition: HOME / SELF CARE / HOMELESS Impression: Primary Impression: Elevated troponin Additional Impression: Chest pain Qualified Codes: R07.9 - Chest pain, unspecified Condition: Stable Discharge Instructions: Nonspecific Chest Pain, Adult, [id number] Additional Instructions: This is a 64-year-old male patient with history of heart failure, presenting with likely acute decompensated heart failure causing volume overload and pulmonary edema. The etiology of the decompensation is not certain but is likely due to inability to maintain medication regimen after discharge on the from PCU. Alternative etiologies I considered include cardiac (ACS, valvular disease, arrhythmia, myocarditis/endocarditis, dissection) however given unremarkable trop, ekg, cardiac exam have low suspicion. Also considered but low risk for respiratory cause (COPD, asthma, PE, or PNA), alcohol or drug abuse, endocrine (thyrotoxicosis), and anemia. Plan to give this patient Lasix admit him for CHF exacerbation. Patient hemodynamically stable this time. Discussed this case with my attending Dr. Johnson. Dr. Johnson has graciously agreed to take this patient over. In person handoff was was given. Referrals: NO PRIMARY CARE PROVIDER (PCP) Education Educated: Patient Educated regarding: diagnosis, treatment, need for follow up Signature Scribe Signature: A Attestation: Scribed for Charbel Swain by ODALIS Ayala . 08/30/25 01:00 CHARBEL SWAIN Aug 29, 2025 23:36 PHILIP JOHNSON MD Aug 30, 2025 02:04
--- NOTE | 2025-08-29 23:43 | RADIOLOGY REPORT ---
CHEST RADIOGRAPH Indication: SOB Technique: Frontal and lateral view of the chest was obtained Comparison: DI CHEST,SINGLE VIEW on DOS: 08/25/25, DI CHEST,SINGLE VIEW on DOS: 08/15/25 FINDINGS: Lines and Tubes: None Lungs: Clear Pleura: No effusion. No pneumothorax. Cardiomediastinal contours: Unremarkable Bones: Unremarkable IMPRESSION: No evidence of acute disease.
[2025-08-30 00:22] LABS: CREATININE 0.73 MG/DL (0.60-1.10); TOTAL CARBON DIOXIDE 26.6 MMOL/L (24-32); eCRCL 88 ML/MIN; eGFR > 90 ML/MIN
[2025-08-30 00:28] LABS: MEAN PLATELET VOLUME 7.2 FL (7.4-10.4); RED CELL DISTRIBUTION WIDTH 13.2 % (11.5-14.5)
[2025-08-30 00:30] LABS: PRO BRAIN NATRIURETIC PEPTIDE 3628 PG/ML (0-125)
[2025-08-30 02:07] VITALS: TEMP 98
--- NOTE | 2025-08-30 10:05 | ELECTROCARDIOGRAPH REPORT ---
[facility] Test Date: 2025-08-30 Test Time: 00:27:43 Pat Name: LONG CAMARENA Department: [facility]- Patient ID: [facility]-[id number] Room: Gender: M Carrier Operator: : 1960 Requested By: CHARBEL SWAIN Order Number: [id number] Reading MD: Measurements Intervals Kim Rate: 84 P: 75 LA: 165 QRS: 94 QRSD: 144 T: 74 QT: 439 QTc: 520 Interpretive Statements Incomplete analysis due to missing data in precordial lead(s) Sinus rhythm Biatrial enlargement Consider left ventricular hypertrophy Borderline T abnormalities, lateral leads Prolonged QT interval Missing lead(s): V2 Please click the below link to view image of tracing.
== END 2025-08-30 02:17 | disposition home or self-care (01) ==
LOC: ER 20:27
DX: R79.89 Other specified abnormal findings of blood chemistry (principal); R07.9 Chest pain, unspecified; R06.02 Shortness of breath; E11.42 Type 2 diabetes mellitus with diabetic polyneuropathy; I11.0 Hypertensive heart disease with heart failure; I50.9 Heart failure, unspecified; F41.9 Anxiety disorder, unspecified; F32.A Depression, unspecified; F12.90 Cannabis use, unspecified, uncomplicated; F15.90 Other stimulant use, unspecified, uncomplicated; I25.2 Old myocardial infarction; Z79.82 Long term (current) use of aspirin
CPT/HCPCS: 36415; 71046; 80053; 82948; 83880; 84484; 85025; 93005; 99285

== ENCOUNTER 2025-08-31 08:47 | Observation (INO) | payer MEDICAID ==
[~2025-08-31] VITALS: Ht 167.6 cm; Wt 55.0 kg
--- NOTE | 2025-08-31 10:28 | Physician Documentation ---
History of Present Illness ~ Chief Complaint: Weakness Stated Complaint: BODY PAIN "FEELS LIKE " Time Seen by MD: 09:41 Primary Medical Doctor: none Source: patient (11), old records HPI Patient presents for shortness of breath, fatigue, and weakness. He has a history of severe cardiomyopathy with CHF, and severe mitral regurgitation, was here two days ago and was to be admitted for acute decompensated heart failure but had to leave because there was a problem with his RV. Patient has a history of noncompliance with his medications but reports that lately he had been very compliant, although he did not take his doses this morning. Likewise, he has a Life Vest but reports that it is not powered up at the moment because his RV broke down. Patient reports chest pain off and on but reports that this is a right upper chest pain, and has lower extremity edema which is better than at his baseline. Medication Reconciliation Allergies: Coded Allergies: No Known Allergies (Unverified , 08/21/25) Scheduled Aspirin (Aspirin EC), 1 TAB PO DAILY, (Reported) Atorvastatin Calcium (Atorvastatin Calcium), 1 TAB PO DAILY Clopidogrel Bisulfate (Clopidogrel), 1 TAB PO DAILY, (Reported) Empagliflozin (Jardiance), 1 TAB PO DAILY, (Reported) Folic Acid* (Folic Acid*), 1 MG PO DAILY Furosemide (Lasix), 40 MG PO DAILY Insulin Glargine,Hum.rec.anlog* (Lantus*), 15 UNITS SQ HS Insulin Lispro (Humalog), 0 UNIT SQ ACHS Lisinopril (Lisinopril), 2.5 MG PO DAILY Metformin HCl (Metformin HCl), 1 TAB PO Q12H Metoprolol Succinate (Metoprolol Succinate), 1 TAB PO DAILY Multivitamin with Folic Acid (Thera Tablet), 1 EACH PO Q24H Sitagliptin Phosphate (Januvia), 1 TAB PO DAILY Miscellaneous Medications Blood Sugar Diagnostic (Accu-Chek Guide Test Strip), (Reported) Discontinued Medications Insulin Aspart (Insulin Aspart), 15 UNITS SQ TIDWM Insulin Glargine,Hum.rec.anlog (Basaglar Kwikpen U-100), SQ, (Reported) Insulin Glargine,Hum.rec.anlog* (Lantus*), 25 UNITS SQ DAILY Isosorbide Mononitrate (Isosorbide Mononitrate Er), 1 TAB PO DAILY Losartan Potassium (Losartan Potassium), 25 MG PO DAILY Spironolactone (Aldactone), 25 MG PO DAILY@0830 Durable Medical Equipment Lancets (Accu-Chek Softclix), (Reported), (DME) Syringe & Needle,Insulin,1 ml (Insulin Syringe), SYR SUBCUT DAILY, (DME) Past Medical History Past Medical History: Peripheral Neuropathy, Coronary Artery Disease, Congestive Heart Failure (EF 10%), Heart Valve Disease (Severe MR), Hypertension, Myocardial Infarction, GERD, BPH, Diabetes, Chronic Pain, HIV, Anxiety, Depression Past Surgical History: noncontributory Patient History: FH: diabetes mellitus (Sister,) FH: heart disease FATHER MOTHER FH: thyroid condition Smoking Status: Former smoker Alcohol Use: Heavy Drug Use: marijuana, methamphetamine (Not currently) Review of Systems All Other Systems at this time: Reviewed and Negative Physical Exam Vital Signs: Temperature: 97.7, Source: Oral, Heart Rate: 79, Respiratory Rate: 15, BP: 126/65, Pulse Oximetry: 100, Weight: 55.000 Oxygen Flow Rate: 0 Physical Exam General: Pt is awake, alert, oriented x4 in no acute distress and chronically ill appearing. Head: Normocephalic and atraumatic. Eyes: Conjunctiva normal. ENT: Mucous membranes moist. Neck: Supple. Chest: There is no accessory muscle use or retractions. Patient has some mild inspiratory rhonchi and expiratory wheeze. No labored breathing. Cardiac: Regular rate and rhythm without murmurs, gallops or rubs. Palpation of the chest wall is normal. Abd: Soft, nondistended, nontender, with normoactive bowel sounds. No guarding or rebound. Extremities: Within normal limits without cyanosis, clubbing, or edema. Skin: [place], warm and dry with no significant rash appreciated. Neuro: Cranial nerves II-XII grossly intact. The gait is normal. Progress Results/Orders Results/Orders Orders - SEUN VELAZQUEZ MD Culture Blood (08/31/25 10:07) Chest,Single View (08/31/25 10:07) Monitor (08/31/25 10:07) Saline Lock (08/31/25 10:07) Nothing By Mouth (08/31/25 Lunch) Hs Troponin I W Calculations (08/31/25 12:07) Hs Troponin I W Calculations (08/31/25 13:07) Completed Orders - SEUN VELAZQUEZ MD Cbc/Diff (08/31/25 10:07) Chest,Single View (08/31/25 10:07) BMP (08/31/25 10:07) Hs Troponin I W Calculations (08/31/25 10:07) PBNP (08/31/25 10:07) Lacticsepsis (08/31/25 10:07) Vital Signs 08/31/25 08:56 Temp 97.7 Pulse 79 Resp 15 B/P (MAP) 126/65 Pulse Ox 100 O2 Flow Rate 0 Laboratory Tests Test 08/31/25 10:21 White Blood Count 8.5 Red Blood Count 4.78 Hemoglobin 14.7 Hematocrit 44.1 Mean Corpuscular Volume 92.2 Mean Corpuscular Hemoglobin 30.8 Mean Corpuscular Hemoglobin Concent 33.4 Red Cell Distribution Width 13.4 Platelet Count 420 Mean Platelet Volume 7.3 L Neutrophils (%) (Auto) 70.1 Lymphocytes (%) (Auto) 23.7 Monocytes (%) (Auto) 4.8 Eosinophils (%) (Auto) 0.7 Basophils (%) (Auto) 0.7 Neutrophils # (Auto) 5.9 Lymphocytes # (Auto) 2.0 Monocytes # (Auto) 0.4 Eosinophils # (Auto) 0.1 Basophils # (Auto) 0.1 CBC Comment Sodium Level 133 L Potassium Level 4.8 Chloride Level 99 Carbon Dioxide Level 30.9 Anion Gap 3 L Blood Urea Nitrogen 28 H Creatinine 1.19 H Estimated GFR/1.73 m2 62 BUN/Creatinine Ratio 23.5 H Glucose Level 542 *H Lactic Acid Level 1.3 Calcium Level 8.7 Troponin I High Sensitivity 101 *H Troponin I High Sens Percent Delta 33 Troponin I Hi Sens Absolute Change -51 Pro-B-Type Natriuretic Peptide 3576 H Albumin 3.3 L Chemistry Comments Consults/PCP Consults/PCP : Time Call Requested: 11:58 Consult Reason/Comments: Hospitalist Medical Decision Making Additional Information Patient presenting with decompensated congestive heart failure, and significant hyperglycemia without evidence of diabetic ketoacidosis. He has continued elevation of his troponin levels, and elevated pro BNP consistent with his shortness of breath and likely underlying fluid overload. Patient has not been wearing his LifeVest, is questionably compliant with medications, we will admit for further evaluation and management. Departure Time of Disposition: 12:03 Disposition: 01 HOME / SELF CARE / HOMELESS Impression: Primary Impression: Fatigue Qualified Codes: R53.83 - Other fatigue Additional Impressions: Hyperglycemia Heart failure Qualified Codes: I50.23 - Acute on chronic systolic (congestive) heart failure Condition: Guarded Referrals: NO PRIMARY CARE PROVIDER (PCP) Education Educated: Patient Educated regarding: diagnosis, treatment Signature Scribe Signature: Attestation: SEUN VELAZQUEZ MD Aug 31, 2025 10:28
[2025-08-31 10:39] LABS: MEAN PLATELET VOLUME 7.3 FL (7.4-10.4); RED CELL DISTRIBUTION WIDTH 13.4 % (11.5-14.5)
[2025-08-31 11:00] LABS: CREATININE 1.19 MG/DL (0.60-1.10); PRO BRAIN NATRIURETIC PEPTIDE 3576 PG/ML (0-125); TOTAL CARBON DIOXIDE 30.9 MMOL/L (24-32); eCRCL 49 ML/MIN; eGFR 62 ML/MIN
--- NOTE | 2025-08-31 12:38 | RADIOLOGY REPORT ---
EXAM: DI CHEST,SINGLE VIEW CLINICAL HISTORY: chest pain TECHNIQUE: Single AP view of the chest WID: COMPARISON: DI CHEST,TWO VIEWS on DOS: 08/29/25, FINDINGS: Lines and tubes: None Chest: Mild cardiomegaly. No pulmonary vascular congestion. There appears to be a coronary stent projecting over the left heart. Calcified plaque projects over the aortic arch. No pleural effusion, pneumothorax, or consolidation. The osseous structures are grossly intact. Multilevel thoracic spondylosis. IMPRESSION: 1. Mild cardiomegaly without CHF or pneumonia.
[2025-08-31] MEDS ORDERED: ondansetron/PF 4mg/2ml inj IV PRN (12:45)
[2025-08-31] MEDS ORDERED: magnesium hydroxide 30ml (MOM) UD suspension PO PRN (12:45)
[2025-08-31] MEDS ORDERED: potassium Cl 40MEQ/1/2NS 520ml 520 ML IV PRN (12:45)
[2025-08-31] MEDS ORDERED: HYDROcodone/acetaminophen 5mg/325mg tablet PO PRN (12:45)
[2025-08-31] MEDS ORDERED: magnesium sulf-water 2g/50mL 50 ML IV PRN (12:45)
[2025-08-31] MEDS ORDERED: magnesium Cl slow-release 64mg tablet PO PRN (12:45)
[2025-08-31] MEDS ORDERED: mag hydrox/Alum hydrox/simeth 30ml oral suspension PO PRN (12:45)
[2025-08-31] MEDS ORDERED: potassium Cl 20 mEq SR tablet PO PRN ×2 (12:45)
[2025-08-31] MEDS ORDERED: magnesium sulf-water 4G/100mL 100 ML IV PRN (12:45)
--- NOTE | 2025-08-31 13:50 | HISTORY AND PHYSICAL-Residence ---
History & Physical Providers to CC Resident Creating Document: SOLISEVANGELINAJOHANNEFATMATAAissatouCK, JAYJAY ~ History of Present Illness Primary Medical Doctor: none Reason for Admit\\Complaint: Shortness of breath History of Present Illness 64-year-old male with a significant past medical history of insulin-dependent diabetes mellitus, heart failure with reduced ejection fraction (EF 1015%), coronary artery disease s/p stent, HIV, hypertension, and polysubstance use disorder (methamphetamine and alcohol), history of repeated admission for shortness of breath and chest pain in the past 1 month came to the ER complaining of chest pain and shortness of breaths. According to him he has been compliant with the medication since the past 1 month and stayed away from drugs. He had a LifeVest, which he is not using. On arrival, he appeared angry, agitated, and poorly groomed, but was hemodynamically stable. Allergies: Coded Allergies: No Known Allergies (Unverified , 08/21/25) Home Medications Home Medications Active Lantus* (Insulin Glargine) 100 Unit/1 Ml Vial 15 Units SQ HS 30 Days Metformin HCl 500 Mg Tablet 1 Tab PO Q12H 30 Days Januvia (Sitagliptin Phosphate) 50 Mg Tablet 1 Tab PO DAILY 30 Days Humalog (Insulin Lispro) 100 Unit/Ml Insuln.pen 0 Unit SQ ACHS 30 Days SLIDING SCALE, MEALTIME INSULIN Less than 150: 0 units 150-199: 2 units 200-249: 4 units 250-299: 7 units 300-349: 10 units 350-400: 13 units Greater than 400: CALL Lisinopril 2.5 Mg Tablet 2.5 Mg PO DAILY 90 Days Thera Tablet (Multivitamin with Folic Acid) 400 Mcg Tablet 1 Each PO Q24H 30 Days Folic Acid* (Folic Acid) Y Tab 1 Mg PO DAILY 30 Days Insulin Syringe (Syringe & Needle,Insulin,1 ml) 29 Gauge X 7/16" Disp.syrin Syr SUBCUT DAILY Lasix (Furosemide) 20 Mg Tablet 40 Mg PO DAILY 30 Days Metoprolol Succinate 25 Mg Tab.sr.24h 1 Tab PO DAILY 30 Days Atorvastatin Calcium 40 Mg Tablet 1 Tab PO DAILY 30 Days Reported Clopidogrel (Clopidogrel Bisulfate) 75 Mg Tablet 1 Tab PO DAILY Jardiance (Empagliflozin) 10 Mg Tablet 1 Tab PO DAILY Aspirin EC (Aspirin) 81 Mg Tablet.dr 1 Tab PO DAILY Accu-Chek Softclix (Lancets) 1 Each Each Accu-Chek Guide Test Strip (Blood Sugar Diagnostic) 1 Each Strip Family History Family History: FH: diabetes mellitus (Sister,) FH: heart disease FATHER MOTHER FH: thyroid condition Past Social History Smoking: Cigarettes Alcohol Use: Heavy Drug Use: Marijuana, Methamphetamine (Not currently) ROS All Other Systems: Reviewed and Negative Exam Vitals: Vital Signs Date Time Temp Pulse Resp B/P (MAP) Pulse Ox O2 Delivery O2 Flow Rate FiO2 08/31/25 12:56 08/31/25 12:13 78 16 98 0 08/31/25 08:56 97.7 General: General: Awake and Alert, no acute distress. Patien was angry because of food. HEENT: Conjunctiva pink, Sclera clear, Mucus Membranes dry Neck: Supple without masses and tenderness. Resp: Lungs clear to auscultation bilaterally. Heart: Regular Rate and rhythm, normal S1 and S2 Abdomen: Soft and non tender no organomegaly Extremities: No cyanosis clubbing or edema, dry wounds on both legs Skin: Warm and Dry. Neurological: Speech is clear, alert, and oriented x 4, no gross neurological deficits Diagnostic Data Last Recorded Lab Results: 08/31/25 1021 08/31/25 1021 Additional Plan 1. Possible Hyperosmolar Hyperglycemic State (HHS) was DKA Bilateral Lower extremity Neuropathy Presented with glucose 540 mg/dL, ordered serum osmolality and UA History of insulin-dependent diabetes, non-adherent after recent discharge because RV was impounded and medications left inside No DKA features; anion gap normal, no acidosis or ketones Dehydrated but at risk for fluid overload given HFrEF (EF 1015%). Precipitated by social instability, homelessness Plan: Lispro 15 units t.i.d. with meals , Lantus 25 units HS Monitor glucose q4h until stable Sodium levels 133; pseudohyponatremia secondary to hyperglycemia HbA1c (prior >12%). 2. Heart Failure with Reduced Ejection Fraction (HFrEF, EF 1015%) chronic, severe, currently compensated Echo (08/16/25): severely reduced LV systolic function (EF 1015%), RV dilated with reduced function, PASP 66 mmHg, moderate MR and TR. Currently no pulmonary congestion or orthopnea; lower extremity edema improved from prior admission He is compliant with medication according to his history. High risk for recurrent decompensation strict I&O, monitor on telemetry Continued metoprolol, spironolactone, isosorbide mononitrate,, Lasix and Jardiance 3. Coronary Artery Disease s/p PCI chronic stable angina pattern Recurrent chest discomfort over months, 7/10 intensity, non-exertional, often anxiety-related. No new ischemic changes reported; Serial troponin mildly elevated, unchanged from previous admission. On dual antiplatelet therapy and statin at discharge Continue aspirin 81 mg and clopidogrel 75 mg, atorvastatin 40 mg daily If chest pain recurs, consider nitroglycerin PRN and evaluate for ischemia vs anxiety component 4. HIV infection chronic, stable but medication adherence uncertain Known HIV per past admission records; unclear ART adherence Patient however denies having a diagnosis which HIV HIV 1 and 2 antibody negative HIV 1 PCR less than 20 CD4,CD8 in normal range from previous admission 5. Polysubstance use disorder (methamphetamine, alcohol) in remission Reports last meth use 4 months ago; drinks alcohol occasionally No evidence of acute intoxication or withdrawal Substance abuse navigator and licensed social worker consulted 6. Psychosocial instability, medical noncompliance, and homelessness Recently homeless after RV impoundment; unable to retrieve meds or LifeVest anode worker consulted 7. Hypertension chronic, controlled on GDMT Continue Losartan, Metoprolol, Spironolactone as above Monitor BP closely; hold nitrates or ARB if hypotensive 8. LEOBARDO, prerenal; vasomotor nephropathy Creatinine 1.19, was normal during previous admission No fluids to be administered in view of heart failure with reduced ejection fraction Continue monitoring BMP Code status: Full code DVT prophylaxis: heparin Diet: Heart healthy Disposition: Patient is noncompliant with medication, he would benefit from LifeVest, monitor blood glucose and patient blood pressures are on soft side. Patient has a history of homelessness and would require replacement. C[facility], PGY 1 Seen and examined with resident at bedside Date of Service: Aug 31, 2025 Billing Provider: JUSTINO RANDLE MD Common Visit Codes: 87378-[id number] INP/OBS CARE (HIGH) CK ARCHULETA, RES Aug 31, 2025 13:50 JUSTINO RANDLE MD Sep 01, 2025 13:14
[2025-08-31] MEDS ORDERED: DEXTROSE 15 GM of carb/4 tabs (each vial/BOTTLE has 4 tablets) PO PRN ×2 (14:15)
[2025-08-31] MEDS ORDERED: dextrose 50%-water 50ml dispensing syringe IV PRN ×2 (14:15)
[2025-08-31] MEDS ORDERED: glucagon, human recombinant 1mg kit SUBCUT PRN (14:15)
[2025-08-31 14:40] VITALS: BP 122/79; PULSE 77; RESP 12; TEMP 97.4; O2SAT 94
[2025-08-31 15:00] VITALS: BP 120/76; PULSE 70; RESP 18; TEMP 97.1; O2SAT 100
[2025-08-31] MEDS: INSULIN LISPRO 100 UNIT/ML INSULN.PEN MULTI-DOSE SQ ONE (15:28)
[2025-08-31 15:55] LABS: LEUKOCYTE ESTERASE ,URINE NEGATIVE (Neg); NITRITES, URINE NEGATIVE (Neg); OCCULT BLOOD,URINE NEGATIVE (Neg); UA COLLECTION TYPE NON-SPECIFIED
[2025-08-31 16:05] LABS: MUCUS STRANDS NONE SEEN /LPF (Neg); SQUAMOUS EPITHELIAL CELL,UR FEW /LPF (FEW)
[2025-08-31 16:14] LABS: URINE AMPHETAMINE SCREEN NEGATIVE (Neg); URINE BARBITUATE SCREEN NEGATIVE (Neg); URINE BENZODIAZEPINES SCREEN NEGATIVE (Neg); URINE CANNABINOID SCREEN NEGATIVE (Neg); URINE COCAINE SCREEN NEGATIVE (Neg); URINE METHADONE SCREEN NEGATIVE (Neg); URINE OPIATE SCREEN NEGATIVE (Neg); URINE PHENCYCLIDINE SCREEN NEGATIVE (Neg)
[2025-08-31 16:20] LABS: OSMOLALITY 317 MOSM/K (280-300)
[2025-08-31] MEDS: INSULIN LISPRO 100 UNIT/ML INSULN.PEN MULTI-DOSE SQ SCH (17:27)
[2025-08-31 18:00] VITALS: BP 128/79; PULSE 76; RESP 12; TEMP 97.3; O2SAT 99
[2025-08-31 20:00] VITALS: RESP 12; O2SAT 99
[2025-08-31] MEDS: K and/or MAG REPLACEMENT MC SCH (20:00)
[2025-08-31] MEDS: docusate sod 100mg capsule PO SCH (20:14)
[2025-08-31] MEDS: heparin, porcine 5000 units/ml vial SQ SCH (20:14)
[2025-08-31] MEDS: insulin glargine (Lantus) pen - multi-dose SQ ONE (20:50)
[2025-08-31] MEDS: insulin glargine (Lantus) pen - multi-dose SQ SCH (20:51)
[2025-08-31 22:00] VITALS: BP 106/63; PULSE 84; RESP 16; TEMP 97.6; O2SAT 98
[2025-08-31] MEDS: morphine 4 MG/ML inj SYRINge IV PRN (22:07)
[2025-09-01 02:00] VITALS: BP 111/67; PULSE 68; RESP 16; TEMP 97.3; O2SAT 96
[2025-09-01 06:00] VITALS: BP 123/80; PULSE 76; RESP 19; TEMP 97.4; O2SAT 96
[2025-09-01 07:16] LABS: MEAN PLATELET VOLUME 7.5 FL (7.4-10.4); RED CELL DISTRIBUTION WIDTH 12.6 % (11.5-14.5)
[2025-09-01 07:22] LABS: CREATININE 0.89 MG/DL (0.60-1.10); TOTAL CARBON DIOXIDE 28.0 MMOL/L (24-32); eCRCL 66 ML/MIN; eGFR 86 ML/MIN
[2025-09-01 08:00] VITALS: RESP 14; O2SAT 100
[2025-09-01] MEDS: aspirin 81mg, enteric-coated 1 TAB TABLET.DR PO SCH (08:00)
[2025-09-01] MEDS: EMPAGLIFLOZIN 10 MG TABLET PO SCH (08:01)
[2025-09-01] MEDS: metoprolol succinate 25mg (24-HOUR) SR. Tablet PO SCH (08:01)
[2025-09-01 11:00] VITALS: BP 125/71; PULSE 70; RESP 20; TEMP 97.6; O2SAT 98
--- NOTE | 2025-09-01 18:58 | DISCHARGE SUMMARY-Residence ---
Discharge Summary Providers to CC Resident Creating Document: SHEBA FAUST, JAYJAY ~ Discharge Summary Admission Diagnosis: Heart failure with reduced ejection fraction Hospital Course DATE OF ADMISSION: 08/31/2025 DATE OF DISCHARGE: 09/01/2025 Discharge Diagnosis\Comment: Chest pain unspecified. Recurrent admission with chest pain, his last discharge on 08/29/2025 Heart Failure with Reduced Ejection Fraction (HFrEF, EF 1015%) - chronic, severe, currently compensated Coronary Artery Disease s/p PCI - chronic stable angina pattern Bilateral Lower extremity Neuropathy HIV infection - chronic, stable but medication adherence uncertain Psychosocial instability, medical noncompliance, and homelessness Polysubstance use disorder (methamphetamine, alcohol) in remission Hypertension- chronic, controlled on GDMT LEOBARDO, prerenal; vasomotor nephropathy Operations\Procedures: None Consultants: None Complications: None Condition on DC: Stable Continued Medications: Aspirin (Aspirin EC) 81 Mg Tablet.dr 1 TAB PO DAILY Atorvastatin Calcium (Atorvastatin Calcium) 40 Mg Tablet 1 TAB PO DAILY for 30 Days, #30 TAB Blood Sugar Diagnostic (Accu-Chek Guide Test Strip) 1 Each Strip Clopidogrel Bisulfate (Clopidogrel) 75 Mg Tablet 1 TAB PO DAILY Empagliflozin (Jardiance) 10 Mg Tablet 1 TAB PO DAILY Folic Acid* (Folic Acid*) Y Tab 1 MG PO DAILY for 30 Days, #30 TAB Furosemide (Lasix) 20 Mg Tablet 40 MG PO DAILY for 30 Days, #60 TAB Insulin Glargine,Hum.rec.anlog* (Lantus*) 100 Unit/1 Ml Vial 15 UNITS SQ HS for 30 Days, #5 ML Insulin Lispro (Humalog) 100 Unit/Ml Insuln.pen 0 UNIT SQ ACHS for 30 Days, #12 ML 1 Refill SLIDING SCALE, MEALTIME INSULIN Less than 150: 0 units 150-199: 2 units 200-249: 4 units 250-299: 7 units 300-349: 10 units 350-400: 13 units Greater than 400: CALL Lisinopril (Lisinopril) 2.5 Mg Tablet 2.5 MG PO DAILY for 90 Days, #90 TAB Metformin HCl (Metformin HCl) 500 Mg Tablet 1 TAB PO Q12H for 30 Days, #60 TAB Metoprolol Succinate (Metoprolol Succinate) 25 Mg Tab.sr.24h 1 TAB PO DAILY for 30 Days, #30 TAB.SR Multivitamin with Folic Acid (Thera Tablet) 400 Mcg Tablet 1 EACH PO Q24H for 30 Days, #30 TAB Sitagliptin Phosphate (Januvia) 50 Mg Tablet 1 TAB PO DAILY for 30 Days, #30 TAB 0 Refills Discharge Summary: HPI 64-year-old male with a significant past medical history of insulin-dependent diabetes mellitus, heart failure with reduced ejection fraction (EF 1015%), coronary artery disease s/p stent, HIV, hypertension, and polysubstance use disorder (methamphetamine and alcohol), history of repeated admission for shortness of breath and chest pain in the past 1 month came to the ER complaining of chest pain and shortness of breaths. According to him he has been compliant with the medication since the past 1 month and stayed away from drugs. He had a LifeVest, which he is not using. On arrival, he appeared angry, agitated, and poorly groomed, but was hemodynamically stable. Hospital course: 64-year-old male patient presented to hospital chief complaint of shortness of breath and infrequent chest pain. He has a history of severe cardiomyopathy with congestive heart failure ejection fraction 10-15% coronary artery heart disease s/p stent, hypertension and polysubstance use disorder. Patient was admitted for acute decompensated heart failure and following extensive workup and management patient was discharged on 08/27/2025. He has a history of noncompliant with his medications, also he has a life vest but reports that he is not using it. For his psychosocial instability and homelessness social worker health services has been consulted. Patient is on GDMT and he is hemodynamically stable. Discharge course: Patient remained hemodynamically stable the patient will be discharged with the following instructions: Come back to emergency department or call 911 if severe shortness of breath, chest pain, palpitations, fever sensation is evidenced. Continue home medications as per instruction given. Follow-up with your primary care physician. Vital Signs Date Time Temp Pulse Resp B/P (MAP) Pulse Ox O2 Delivery O2 Flow Rate FiO2 09/01/25 11:00 97.6 70 20 125/71 (89) 98 Room Air 08/31/25 12:13 0 General: General: Awake and Alert, no acute distress. Patien was angry because of food. HEENT: Conjunctiva pink, Sclera clear, Mucus Membranes dry Neck: Supple without masses and tenderness. Resp: Lungs clear to auscultation bilaterally. Heart: Regular Rate and rhythm, normal S1 and S2 Abdomen: Soft and non tender no organomegaly Extremities: No cyanosis clubbing or edema, dry wounds on both legs Skin: Warm and Dry. Neurological: Speech is clear, alert, and oriented x 4, no gross neurological deficits Laboratory Tests Test 08/31/25 10:21 08/31/25 11:51 08/31/25 12:48 08/31/25 14:55 White Blood Count 8.5 X10'3 Red Blood Count 4.78 X10'6 Hemoglobin 14.7 g/dl Hematocrit 44.1 % Mean Corpuscular Volume 92.2 FL Mean Corpuscular Hemoglobin 30.8 PG Mean Corpuscular Hemoglobin Concent 33.4 g/dL Red Cell Distribution Width 13.4 % Platelet Count 420 X10'3 Mean Platelet Volume 7.3 FL Neutrophils (%) (Auto) 70.1 % Lymphocytes (%) (Auto) 23.7 % Monocytes (%) (Auto) 4.8 % Eosinophils (%) (Auto) 0.7 % Basophils (%) (Auto) 0.7 % Neutrophils # (Auto) 5.9 X10'3 Lymphocytes # (Auto) 2.0 X10'3 Monocytes # (Auto) 0.4 X10'3 Eosinophils # (Auto) 0.1 X10'3 Basophils # (Auto) 0.1 X10'3 CBC Comment Sodium Level 133 MMOL/L Potassium Level 4.8 MMOL/L Chloride Level 99 MMOL/L Carbon Dioxide Level 30.9 MMOL/L Anion Gap 3 Blood Urea Nitrogen 28 MG/DL Creatinine 1.19 MG/DL Estimated GFR/1.73 m2 62 ML/MIN BUN/Creatinine Ratio 23.5 Glucose Level 542 MG/DL Osmolality 317 MOSM/K Lactic Acid Level 1.3 MMOL/L Calcium Level 8.7 MG/DL Magnesium Level 2.2 MG/DL Troponin I High Sensitivity 101 ng/L 85 ng/L 98 ng/L Troponin I High Sens Percent Delta 33 % 15 % 15 % Troponin I Hi Sens Absolute Change -51 ng/L -16 ng/L 13 ng/L Pro-B-Type Natriuretic Peptide 3576 PG/ML Albumin 3.3 G/DL Chemistry Comments Urine Specimen Description Non-specified Urine Color Straw Urine Clarity Clear Urine pH 6.0 Urine Specific [place] 1.010 Urine Protein Negative mg/dl Urine Glucose (UA) >=1000 mg/dl Urine Ketones Negative mg/dl Urine Occult Blood Negative Urine Nitrite Negative Urine Bilirubin Negative Urine Urobilinogen 0.2 E.U/dL Urine Leukocyte Esterase Negative Urine RBC None seen /HPF Urine WBC None seen /HPF Urine Squamous Epithelial Cells Few /LPF Urine Bacteria None seen /HPF Urine Mucus None seen /LPF Volume Urine Centrifuged 10 ml Urine Comment Urine Opiates Screen Negative Urine Methadone Screen Negative Urine Fentanyl Screen Negative Urine Barbiturates Screen Negative Urine Phencyclidine Screen Negative Urine Amphetamines Screen Negative Urine Benzodiazepines Screen Negative Urine Cocaine Screen Negative Urine Cannabinoids Screen Negative Drug Screen Comment Test 08/31/25 17:03 08/31/25 20:11 09/01/25 06:37 09/01/25 10:54 Glucometer 363 mg/dl 192 mg/dl 227 mg/dl White Blood Count 8.1 X10'3 Red Blood Count 4.71 X10'6 Hemoglobin 14.3 g/dl Hematocrit 42.4 % Mean Corpuscular Volume 90.1 FL Mean Corpuscular Hemoglobin 30.3 PG Mean Corpuscular Hemoglobin Concent 33.6 g/dL Red Cell Distribution Width 12.6 % Platelet Count 373 X10'3 Mean Platelet Volume 7.5 FL Neutrophils (%) (Auto) 46.9 % Lymphocytes (%) (Auto) 43.0 % Monocytes (%) (Auto) 7.3 % Eosinophils (%) (Auto) 1.8 % Basophils (%) (Auto) 1.0 % Neutrophils # (Auto) 3.8 X10'3 Lymphocytes # (Auto) 3.5 X10'3 Monocytes # (Auto) 0.6 X10'3 Eosinophils # (Auto) 0.1 X10'3 Basophils # (Auto) 0.1 X10'3 CBC Comment Sodium Level 130 MMOL/L Potassium Level 4.3 MMOL/L Chloride Level 97 MMOL/L Carbon Dioxide Level 28.0 MMOL/L Anion Gap 5 Blood Urea Nitrogen 31 MG/DL Creatinine 0.89 MG/DL Estimated GFR/1.73 m2 86 ML/MIN BUN/Creatinine Ratio 34.8 Glucose Level 220 MG/DL Calcium Level 7.9 MG/DL Magnesium Level 2.0 MG/DL Albumin 2.6 G/DL Chemistry Comments *Problems/Diagnosis: (1) Polysubstance abuse Status: Chronic (2) Diabetes mellitus Status: Chronic (3) Systolic congestive heart failure with reduced left ventricular function, NYHA class 4 Status: Chronic (4) Medical non-compliance Status: Acute Total Time Spent on D/C: > 30 Minutes Date of Service: Sep 01, 2025 Billing Provider: JUSTINO RANDLE MD Common Visit Codes: 34344-BST/OBS DISCH DAY >30min SHEBA FAUST, RES Sep 01, 2025 18:17 JUSTINO RANDLE MD Sep 03, 2025 15:08
== END 2025-09-01 14:50 | disposition home or self-care (01) ==
LOC: ER 08:48 → UNDOADMIN 12:44 → ED HOLD 12:44 → PCU 3S 12:44 → ED HOLD 14:05
PROVIDERS: ADMIT Internal Medicine; ATTEND Internal Medicine
DX: R07.89 Other chest pain (principal); E11.65 Type 2 diabetes mellitus with hyperglycemia; I11.0 Hypertensive heart disease with heart failure; I50.23 Acute on chronic systolic (congestive) heart failure; R53.83 Other fatigue; I25.10 Atherosclerotic heart disease of native coronary artery without angina pectoris; F15.10 Other stimulant abuse, uncomplicated; Z79.899 Other long term (current) drug therapy; Z98.890 Other specified postprocedural states
CPT/HCPCS: 36415; 71045; 80048; 80305; 81001; 82948; 83605; 83735; 83880; 83930; 84484; 85025; 87040; 87081; 96372; 96374; 96375; 99285; A6258; G0378; J1644; J1815; J1938; J2270

== ENCOUNTER 2025-09-02 20:24 | Emergency (ER) | payer MEDICAID ==
[~2025-09-02] VITALS: Ht 167.6 cm; Wt 49.8 kg
[~2025-09-02 20:24] MED LIST changes: -[UNRECOGNIZED DRUG - CODE]
[2025-09-02 20:31] VITALS: BP 133/71; PULSE 87; RESP 18; TEMP 98.2; O2SAT 99
== END 2025-09-02 22:18 | disposition left against medical advice (07) ==
LOC: ER 20:25
DX: S61.512A Laceration without foreign body of left wrist, initial encounter (principal); W19.XXXA Unspecified fall, initial encounter; Y93.89 Activity, other specified; Y92.89 Other specified places as the place of occurrence of the external cause; Y99.8 Other external cause status
CPT/HCPCS: 99281

== ENCOUNTER 2025-09-08 06:45 | Inpatient (IN) | payer MEDICAID ==
[~2025-09-08] VITALS: Ht 167.6 cm; Wt 60.0 kg
[2025-09-08 06:48] VITALS: TEMP 98.2
--- NOTE | 2025-09-08 06:59 | Physician Documentation ---
History of Present Illness ~ Chief Complaint: Chest Pain Stated Complaint: CP Time Seen by MD: 06:58 OK to notify your PCP?: Yes Primary Medical Doctor: none Source: patient, RN/MD, EMS, RN notes reviewed, EMS notes reviewed, old records Mode of Arrival: EMS Exam Limitations: no limitations HPI This pleasant 78-year-old takes his medications with meals. He lives at the [place] was walking a mi to the [place]. He does this all the time. Today however while walking he developed severe it is crushing chest pain shortness of breath no diaphoresis palpitations or dizziness. He states it was radiating to his left shoulder. Called 911 where he received aspirin and nitro in his feeling much better. He has had a history of coronary artery disease. He has a three-vessel CABG but has not had a chance to have a formal consultation with a wellness specialist. He states he has been compliant with his medications trying very hard to stay out of hospitalist. He states there was a phase where he was self destructive and was in the ER all the time. He states that is not what he is doing anymore this is different it is heaviness and pressure. After receiving nitro he is feeling much better. He is diabetic and has not had a chance to have his morning medications or insulin this morning. He is concerned because saranya shelton has a appointment with a social service assistant at 10:00 a.m. today Medication Reconciliation Allergies: Coded Allergies: No Known Allergies (Unverified , 09/08/25) Scheduled Aspirin (Aspirin EC), 1 TAB PO DAILY, (Reported) Atorvastatin Calcium (Atorvastatin Calcium), 1 TAB PO DAILY Clopidogrel Bisulfate (Clopidogrel), 1 TAB PO DAILY, (Reported) Empagliflozin (Jardiance), 1 TAB PO DAILY, (Reported) Folic Acid* (Folic Acid*), 1 MG PO DAILY Furosemide (Lasix), 40 MG PO DAILY Insulin Glargine,Hum.rec.anlog* (Lantus*), 15 UNITS SQ HS Insulin Lispro (Humalog), 0 UNIT SQ ACHS Lisinopril (Lisinopril), 2.5 MG PO DAILY Metformin HCl (Metformin HCl), 1 TAB PO Q12H Metoprolol Succinate (Metoprolol Succinate), 1 TAB PO DAILY Multivitamin with Folic Acid (Thera Tablet), 1 EACH PO Q24H Sitagliptin Phosphate (Januvia), 1 TAB PO DAILY Miscellaneous Medications Blood Sugar Diagnostic (Accu-Chek Guide Test Strip), (Reported) Durable Medical Equipment Syringe & Needle,Insulin,1 ml (Insulin Syringe), SYR SUBCUT DAILY, (DME) Past Medical History Past Medical History: Peripheral Neuropathy, Coronary Artery Disease, Congestive Heart Failure, Heart Valve Disease, Hypertension, Myocardial Infarction, GERD, BPH, Diabetes, Chronic Pain, HIV, Anxiety, Depression Past Surgical History: noncontributory Patient History: FH: diabetes mellitus (Sister,) FH: heart disease FATHER MOTHER FH: thyroid condition Alcohol Use: Heavy Drug Use: marijuana, methamphetamine Review of Systems All Other Systems at this time: Reviewed and Negative Physical Exam Vital Signs: RN Vital Signs have been reviewed: Yes, Temperature: 98.2, Source: Oral, Heart Rate: 83, Respiratory Rate: 18, BP: 129/73, Pulse Oximetry: 100, Weight: 60.000 Physical Exam General: The patient is well developed, well nourished, nontoxic appearing and is in mild acute distress. Skin: [place], warm and dry with no rashes. HEENT: Head was normocephalic and atraumatic. Eyes - pupils equal, round, reactive to light and accommodation. Extraocular movements were intact. Conjunctivae were nonicteric. The mouth and oropharynx were clear with moist mucous membranes. There were no pharyngeal exudates or erythema. Neck: Supple and nontender. There was no jugular venous distention, lymphadenopathy, thyromegaly or masses. Chest: Clear to auscultation bilaterally without wheezes, or rhonchi. No accessory muscle use. No dullness to percussion. Trace crackles at base Heart: Rate regular and rhythmic. S1, S2. No murmurs. Palpation of the chest wall was normal. No rubs or thrills. Abdomen: Soft, nontender and nondistended. Positive bowel sounds. No guarding or rebound. No hepatosplenomegaly or palpable masses. Extremities: No cyanosis, clubbing or edema. The patient moves all extremities. Pulses were equal and symmetric. Neurologic: Motor sensory grossly intact Psychologic: The patient was oriented to person, place and time. The patient demonstrated appropriate judgement and insight. Progress Results/Orders Reviewed/noted all lab results: Yes Results/Orders Orders - ALEX SARABIA MD Chest,Single View (09/08/25 06:52) Monitor (09/08/25 06:52) Saline Lock (09/08/25 06:52) Oxygen (09/08/25 06:52) Electrocardiogram (09/08/25 06:52) Hs Troponin I W Calculations (09/08/25 08:52) Hs Troponin I W Calculations (09/08/25 09:52) Page Hospitalist (09/08/25 07:36) Fill Out Med Reconciliation (09/08/25 07:36) Drug Screen, Urine (09/08/25 07:38) Completed Orders - ALEX SARABIA MD Chest,Single View (09/08/25 06:52) Cbc/Diff (09/08/25 06:52) BMP (09/08/25 06:52) PBNP (09/08/25 06:52) Hs Troponin I W Calculations (09/08/25 06:52) Nitroglycerin 0.4mg/Hr Patch (Nitro-Dur (09/08/25 07:10) Furosemide Inj (Lasix Inj) (09/08/25 07:10) Ua With Microscopic (09/08/25 07:32) Medications Received in ER Medications (Trade) Dose Ordered Sig/Aaron Route PRN Reason Start Time Stop Time Status Last Admin Dose Admin (Nitro-Dur 0.4mg/ hour Patch) 1 patch ONCE ONCE TD 09/08/25 07:10 09/08/25 07:11 DC 09/08/25 07:26 1 PATCH (Lasix inj) 20 mg ONCE ONCE IV 09/08/25 07:10 09/08/25 07:11 DC 09/08/25 07:26 20 MG Vital Signs 09/08/25 06:48 Temp 98.2 Pulse 83 Resp 18 B/P (MAP) 129/73 Pulse Ox 100 Laboratory Tests Test 09/08/25 06:55 09/08/25 07:32 White Blood Count 7.5 Red Blood Count 4.23 L Hemoglobin 13.1 L Hematocrit 38.9 L Mean Corpuscular Volume 91.9 Mean Corpuscular Hemoglobin 30.9 Mean Corpuscular Hemoglobin Concent 33.6 Red Cell Distribution Width 13.4 Platelet Count 329 Mean Platelet Volume 7.7 Neutrophils (%) (Auto) 63.7 Lymphocytes (%) (Auto) 28.4 Monocytes (%) (Auto) 5.9 Eosinophils (%) (Auto) 1.2 Basophils (%) (Auto) 0.8 Neutrophils # (Auto) 4.8 Lymphocytes # (Auto) 2.1 Monocytes # (Auto) 0.4 Eosinophils # (Auto) 0.1 Basophils # (Auto) 0.1 CBC Comment Sodium Level 134 L Potassium Level 4.8 Chloride Level 105 Carbon Dioxide Level 21.9 L Anion Gap 7 L Blood Urea Nitrogen 32 H Creatinine 1.00 Estimated GFR/1.73 m2 75 BUN/Creatinine Ratio 32.0 H Glucose Level 416 *H Calcium Level 7.7 L Troponin I High Sensitivity 56 Pro-B-Type Natriuretic Peptide 1546 H Albumin 2.8 L Chemistry Comments Urine Specimen Description Cln catch midstream Urine Color Yellow Urine Clarity Clear Urine pH 5.5 Urine Specific [place] 1.010 Urine Protein Negative Urine Glucose (UA) >=1000 H Urine Ketones Negative Urine Occult Blood Negative Urine Nitrite Negative Urine Bilirubin Negative Urine Urobilinogen 0.2 Urine Leukocyte Esterase Negative Urine RBC None seen Urine WBC 0-4 Urine Squamous Epithelial Cells Few Urine Bacteria None seen Urine Mucus None seen Volume Urine Centrifuged 10 ml Urine Comment Drug Screen Comment Re-Evaluation Re-Evaluation : Re-Evaluation: Improved Progress Heart score 5 Patient was seen and examined. Patient is given reassurance. Patient has a heart score of five having chest pain bit more severe than baseline has a significant cardiac history. Did not have medications improving with nitroglycerin. Nevertheless laboratory work was obtained. Laboratory work showed some hyperglycemia patient took some insulin. X-ray did not show any infiltrates or effusions with some cardiomegaly. CBC was reassuring with some baseline anemia of 13 and 38 otherwise no left shift or leukocytosis. Patient's chemistry showed some mild metabolic acidosis with a CO2 of 21.9 and glucose of 416. BUN creatinine ratio shows some mild dehydration of 32 however patient is most likely on a fluid restricted diet so this would be good for the patient. Patient's proBNP is 1546. First troponin is -56. Patient has had multiple workups in the past including recent negative stress test however heart failure high-risk patient poor social service worker although that seems to be improving he now has housing but still utilizes the [place] for meals and resources. Patient has had an appointment with a social service assistant today at 10:00 a.m. which he was concerned. Patient is making effort improving himself at this time. I did discussed the case with the hospitalist at 8:00 a.m. in the morning for admission. Continuous laboratory monitor interpretation shows normal sinus rhythm heart rate 80s, no ectopy, normal, my interpretation. Pulse oximetry monitor interpretation shows normal oxygenation at 100% room air, normal, my interpretation. EKG/XRAY/CT/US/VASC/MRI EKG : Intepreting Monitor?: Yes Additional Comment 6:50 a.m. EKG shows normal sinus rhythm heart rate 81 QTC 488 poor R-wave progression with Q-waves in V1 V2. Chest X-Ray : Interpreted By: self Views: 1 VIEW Additional Comments CHEST RADIOGRAPH Indication: CP Technique: Single frontal view of the chest was obtained Comparison: DI CHEST,SINGLE VIEW on DOS: 08/31/25, DI CHEST,TWO VIEWS on DOS: 08/29/25, DI CHEST,SINGLE VIEW on DOS: 08/25/25 FINDINGS: Lines and Tubes: None Lungs: No focal consolidation. Pleura: No effusion. No pneumothorax. Cardiomediastinal contours: Unremarkable Bones: No acute osseous abnormality. IMPRESSION: 1. No acute cardiopulmonary disease. Heart Score: Heart Score Response (Comments) Value History Slightly Suspicious 0 EKG Repolarization Disturb 1 Age >65 2 Risk Factors >3 or Hx ASHD 2 Troponin Normal limit 0 Total 5 Medical Decision Making Additional information obtaine: old records Findings Hyperglycemia, unstable angina, chronic heart failure. Heart Score: 5 Differential Dx:Considerations: Include: angina, aortic dissection, chest wall pain, cholelithiasis, CHF, costochondritis, esophageal reflux/spasm, gastritis, herpes zoster, myocardial infarction, pericarditis, pleuritis, pancreatitis, pneumonia, pneumothorax, pulmonary embolus, other Departure Disposition: 09 ADMITTED INPATIENT Admission Level of Care: PCU with Tele Impression: Primary Impression: Hyperglycemia Additional Impression: Acute chest pain Condition: Fair Referrals: NO PRIMARY CARE PROVIDER (PCP) Education Educated: Patient Educated regarding: diagnosis, need for follow up, other Signature Scribe Signature: No scribed Attestation: The note accurately reflects work and decisions made by me.Alex Sarabia MD 09/08/25 08:11 ALEX SARABIA MD Sep 08, 2025 06:59
[2025-09-08 07:25] LABS: MEAN PLATELET VOLUME 7.7 FL (7.4-10.4); RED CELL DISTRIBUTION WIDTH 13.4 % (11.5-14.5)
[2025-09-08] MEDS: furosemide 10 MG/1 ML 10ml inj IV ONE (07:26)
[2025-09-08 07:31] LABS: CREATININE 1.00 MG/DL (0.60-1.10); PRO BRAIN NATRIURETIC PEPTIDE 1546 PG/ML (0-125); TOTAL CARBON DIOXIDE 21.9 MMOL/L (24-32); eCRCL 64 ML/MIN; eGFR 75 ML/MIN
--- NOTE | 2025-09-08 07:44 | RADIOLOGY REPORT ---
CHEST RADIOGRAPH Indication: CP Technique: Single frontal view of the chest was obtained Comparison: DI CHEST,SINGLE VIEW on DOS: 08/31/25, DI CHEST,TWO VIEWS on DOS: 08/29/25, DI CHEST,SINGLE VIEW on DOS: 08/25/25 FINDINGS: Lines and Tubes: None Lungs: No focal consolidation. Pleura: No effusion. No pneumothorax. Cardiomediastinal contours: Unremarkable Bones: No acute osseous abnormality. IMPRESSION: 1. No acute cardiopulmonary disease.
[2025-09-08 07:55] LABS: LEUKOCYTE ESTERASE ,URINE NEGATIVE (Neg); NITRITES, URINE NEGATIVE (Neg); OCCULT BLOOD,URINE NEGATIVE (Neg)
[2025-09-08 07:56] LABS: UA COLLECTION TYPE CLN CATCH MIDSTREAM
[2025-09-08] MEDS ORDERED: potassium Cl 20 mEq SR tablet PO PRN ×2 (08:00)
[2025-09-08] MEDS ORDERED: DEXTROSE 15 GM of carb/4 tabs (each vial/BOTTLE has 4 tablets) PO PRN ×2 (08:00)
[2025-09-08] MEDS: docusate sod 100mg capsule PO SCH (08:00)
[2025-09-08] MEDS ORDERED: ondansetron/PF 4mg/2ml inj IV PRN (08:00)
[2025-09-08] MEDS ORDERED: mag hydrox/Alum hydrox/simeth 30ml oral suspension PO PRN (08:00)
[2025-09-08] MEDS ORDERED: magnesium sulf-water 2g/50mL 50 ML IV PRN (08:00)
[2025-09-08] MEDS: K and/or MAG REPLACEMENT MC SCH (08:00)
[2025-09-08] MEDS ORDERED: ipratropium/albuterol 3ml nebule NEB PRN (08:00)
[2025-09-08] MEDS ORDERED: glucagon, human recombinant 1mg kit SUBCUT PRN (08:00)
[2025-09-08] MEDS ORDERED: magnesium sulf-water 4G/100mL 100 ML IV PRN (08:00)
[2025-09-08] MEDS ORDERED: albuterol 2.5 MG/3 ML nebule NEB PRN (08:00)
[2025-09-08] MEDS ORDERED: magnesium hydroxide 30ml (MOM) UD suspension PO PRN (08:00)
[2025-09-08] MEDS ORDERED: dextrose 50%-water 50ml dispensing syringe IV PRN ×2 (08:00)
[2025-09-08] MEDS ORDERED: potassium Cl 40MEQ/1/2NS 520ml 520 ML IV PRN (08:00)
[2025-09-08 08:03] LABS: MUCUS STRANDS NONE SEEN /LPF (Neg); SQUAMOUS EPITHELIAL CELL,UR FEW /LPF (FEW)
[2025-09-08 08:08] LABS: URINE AMPHETAMINE SCREEN NEGATIVE (Neg); URINE BARBITUATE SCREEN NEGATIVE (Neg); URINE BENZODIAZEPINES SCREEN NEGATIVE (Neg); URINE CANNABINOID SCREEN NEGATIVE (Neg); URINE COCAINE SCREEN NEGATIVE (Neg); URINE METHADONE SCREEN NEGATIVE (Neg); URINE OPIATE SCREEN NEGATIVE (Neg); URINE PHENCYCLIDINE SCREEN NEGATIVE (Neg)
[2025-09-08 08:52] VITALS: BP 131/77; PULSE 81; RESP 18; O2SAT 96
--- NOTE | 2025-09-08 09:08 | ELECTROCARDIOGRAPH REPORT ---
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 Paul Swain Measurements Intervals [place] Rate: 81 P: 57 AK: 176 QRS: 66 QRSD: 86 T: 87 QT: 420 QTc: 488 Interpretive Statements Sinus rhythm Probable left atrial enlargement Probable left ventricular hypertrophy Anterior Q waves, possibly due to LVH Baseline wander in lead(s) II,III,aVF,V3 Electronically Signed On 09-08-2025 11:01:[address] Paul Swain Please click the below link to view image of tracing.
--- NOTE | 2025-09-08 11:16 | PROGRESS NOTE ---
Clinical Note Clinical Note Progress Note: I arrived in the ED at 09:45 and the patient has a already left AMA. The patient had left AMA prior to being seen thus there is no encounter. SANTIAGO OH DO Sep 08, 2025 11:16
[2025-09-08] MEDS ORDERED: INSULIN LISPRO 100 UNIT/ML INSULN.PEN MULTI-DOSE SQ SCH (12:00)
[2025-09-08] MEDS ORDERED: enoxaparin 40mg/0.4ml syringe SQ SCH (20:00)
== END 2025-09-08 09:30 | disposition left against medical advice (07) | DRG 420 ==
LOC: ER 06:46 → ED HOLD 08:07
PROVIDERS: ADMIT Family Medicine; ATTEND Family Medicine
DX: E11.65 Type 2 diabetes mellitus with hyperglycemia (principal); I50.9 Heart failure, unspecified; I11.0 Hypertensive heart disease with heart failure; E11.42 Type 2 diabetes mellitus with diabetic polyneuropathy; Z79.01 Long term (current) use of anticoagulants; N40.0 Benign prostatic hyperplasia without lower urinary tract symptoms; R07.89 Other chest pain; I25.10 Atherosclerotic heart disease of native coronary artery without angina pectoris; Z53.21 Procedure and treatment not carried out due to patient leaving prior to being seen by health care provider; F32.A Depression, unspecified; F41.9 Anxiety disorder, unspecified; K21.9 Gastro-esophageal reflux disease without esophagitis; Z79.899 Other long term (current) drug therapy; Z79.84 Long term (current) use of oral hypoglycemic drugs; Z79.82 Long term (current) use of aspirin; Z79.4 Long term (current) use of insulin; I25.2 Old myocardial infarction
CPT/HCPCS: 36415; 71045; 80048; 80305; 81001; 82948; 83880; 84484; 85025; 93005; 96374; 99285; G0378; J1815; J1938

== ENCOUNTER 2025-09-12 10:04 | Emergency (ER) | payer MEDICAID ==
[~2025-09-12] VITALS: Ht 167.6 cm; Wt 62.1 kg
[2025-09-12 10:11] VITALS: TEMP 98.4
--- NOTE | 2025-09-12 10:56 | Physician Documentation ---
History of Present Illness ~ Chief Complaint: Mechanical Fall Stated Complaint: FALL Time Seen by MD: 10:11 Primary Medical Doctor: none HPI 64-year-old male presenting after a mechanical fall. Patient was attempting to get onto the bus when his foot got caught and he fell forward hitting his head and his nose on the floor of the bus. Patient sustained a cut over the left ey ebrow. He also complains of some headache and neck pain which he rates as mild to moderate. He denies any chest pain, dizziness, shortness of breath or any other associated symptoms. He denies losing consciousness, denies any dizziness or syncopal symptoms. He does take aspirin for his heart condition. Tetanus within 5 Years?: Yes Medication Reconciliation Allergies: Coded Allergies: No Known Allergies (Unverified , 09/12/25) Scheduled Aspirin (Aspirin EC), 1 TAB PO DAILY, (Reported) Atorvastatin Calcium (Atorvastatin Calcium), 1 TAB PO DAILY Clopidogrel Bisulfate (Clopidogrel), 1 TAB PO DAILY, (Reported) Empagliflozin (Jardiance), 1 TAB PO DAILY, (Reported) Folic Acid* (Folic Acid*), 1 MG PO DAILY Furosemide (Lasix), 40 MG PO DAILY Insulin Glargine,Hum.rec.anlog* (Lantus*), 15 UNITS SQ HS Insulin Lispro (Humalog), 0 UNIT SQ ACHS Lisinopril (Lisinopril), 2.5 MG PO DAILY Metformin HCl (Metformin HCl), 1 TAB PO Q12H Metoprolol Succinate (Metoprolol Succinate), 1 TAB PO DAILY Multivitamin with Folic Acid (Thera Tablet), 1 EACH PO Q24H Sitagliptin Phosphate (Januvia), 1 TAB PO DAILY Miscellaneous Medications Blood Sugar Diagnostic (Accu-Chek Guide Test Strip), (Reported) Durable Medical Equipment Syringe & Needle,Insulin,1 ml (Insulin Syringe), SYR SUBCUT DAILY, (DME) Past Medical History Past Medical History: Peripheral Neuropathy, Coronary Artery Disease, Congestive Heart Failure, Heart Valve Disease, Hypertension, Myocardial Infarction, GERD, BPH, Diabetes, Chronic Pain, HIV, Anxiety, Depression Past Surgical History: noncontributory Patient History: FH: diabetes mellitus (Sister,) FH: heart disease FATHER MOTHER FH: thyroid condition Alcohol Use: Heavy Drug Use: marijuana, methamphetamine Review of Systems All Other Systems at this time: Reviewed and Negative Physical Exam Vital Signs: Temperature: 98.4, Source: Oral, Heart Rate: 86, Respiratory Rate: 20, BP: 116/73, Pulse Oximetry: 99, Weight: 62.100 Oxygen Flow Rate: 0 Physical Exam I have reviewed the triage vitals. CONST: Well developed and well nourished. In no acute distress HENT: 1.5 cm laceration over the left eyebrow EYES: Pupils are equal, round and reactive to light. Normal conjunctiva NECK: Normal range of motion. Supple. CARDIO: Normal rate and regular rhythm. No murmurs, rubs, or gallops. S1, S2. PULM/CHEST: No respiratory distress. Lungs clear to auscultation. No wheeze ABD: Soft and nontender. Nondistended. Bowel sounds normal. No guarding. : Exam deferred MSK: No edema. No deformity. NEURO: Alert and oriented to person, place and time. Moving all extremities SKIN: Warm and dry. PSYCH: Normal mood and affect. Good eye contact. Progress Results/Orders Results/Orders Orders - OLGA WINKLER MD Ct Head (09/12/25 11:50) Ct Cervical Spine (09/12/25 11:50) Chest,Single View (09/12/25 10:52) Completed Orders - OLGA WINKLER MD Electrocardiogram (09/12/25 10:40) Cbc/Diff (09/12/25 10:40) MG (09/12/25 10:40) Normal Saline 1000ml (0.9% Sodium Chlori (09/12/25 10:40) CMP (09/12/25 10:40) Ct Head (09/12/25 11:50) Ct Cervical Spine (09/12/25 11:50) Chest,Single View (09/12/25 10:52) Acetaminophen 325mg Tablet (Tylenol Tabl (09/12/25 11:10) Medications Received in ER Medications (Trade) Dose Ordered Sig/Aaron Route PRN Reason Start Time Stop Time Status Last Admin Dose Admin (0.9% sodium chloride (NS) 1000ml IV soln) 1,000 ml ONCE ONCE IVB 09/12/25 10:40 09/12/25 10:42 DC 09/12/25 11:09 1,000 ML (Tylenol tablet) 650 mg ONCE ONCE PO 09/12/25 11:10 09/12/25 11:11 DC 09/12/25 12:11 650 MG Vital Signs 09/12/25 09/12/25 10:11 12:44 Temp 98.4 Pulse 86 80 Resp 20 18 B/P (MAP) 116/73 125/86 (99) Pulse Ox 99 98 O2 Flow Rate 0 0 Laboratory Tests Test 09/12/25 10:23 09/12/25 10:51 Glucometer 217 H White Blood Count 7.3 Red Blood Count 3.97 L Hemoglobin 12.0 L Hematocrit 36.3 L Mean Corpuscular Volume 91.5 Mean Corpuscular Hemoglobin 30.3 Mean Corpuscular Hemoglobin Concent 33.1 Red Cell Distribution Width 13.8 Platelet Count 282 Mean Platelet Volume 7.2 L Neutrophils (%) (Auto) 59.1 Lymphocytes (%) (Auto) 31.4 Monocytes (%) (Auto) 8.1 Eosinophils (%) (Auto) 1.0 Basophils (%) (Auto) 0.4 Neutrophils # (Auto) 4.3 Lymphocytes # (Auto) 2.3 Monocytes # (Auto) 0.6 Eosinophils # (Auto) 0.1 Basophils # (Auto) 0.0 CBC Comment Sodium Level 141 Potassium Level 4.1 Chloride Level 107 Carbon Dioxide Level 28.7 Anion Gap 5 L Blood Urea Nitrogen 32 H Creatinine 0.81 Estimated GFR/1.73 m2 > 90 BUN/Creatinine Ratio 39.5 H Glucose Level 203 H Calcium Level 8.3 L Magnesium Level 2.2 Total Bilirubin 0.4 Aspartate Amino Transf (AST/SGOT) 35 Alanine Aminotransferase (ALT/SGPT) 63 Alkaline Phosphatase 106 Total Protein 6.6 Albumin 3.1 L Globulin 3.5 Albumin/Globulin Ratio 0.9 L Chemistry Comments EKG/XRAY/CT/US/VASC/MRI Chest X-Ray : Additional Comments CLINICAL HISTORY: SOB TECHNIQUE: Single view of the chest was obtained. COMPARISON: DI CHEST,SINGLE VIEW on DOS: 09/08/25, DI CHEST,SINGLE VIEW on DOS: 08/31/25, DI CHEST,TWO VIEWS on DOS: 08/29/25, DI CHEST,SINGLE VIEW on DOS: 08/25/25, DI CHEST,SINGLE VIEW on DOS: 08/15/25 FINDINGS: The heart size and pulmonary vasculature are normal. The lungs are clear. IMPRESSION: NO ACUTE CARDIOPULMONARY PROCESS. : Impression CLINICAL HISTORY: trauma TECHNIQUE: Helical scanning was performed of the head from the skull base to the vertex. Multiplanar reconstructions were performed. This exam was performed according to our departmental dose optimization program. Up-to-date CT equipment and radiation dose reduction techniques are utilized as appropriate. CTDI 63 DLP 1146 COMPARISON: None FINDINGS: There is no evidence for acute intracranial hemorrhage, acute ischemic changes, mass, mass effect, or extra-axial fluid collection. There is no hydrocephalus or midline shift. There is no effacement of the cerebral sulci and basal subarachnoid cisterns. The arvizu-white matter differentiation is well maintained. The imaged paranasal sinuses are clear. IMPRESSION: NO ACUTE INTRACRANIAL ABNORMALITY SEEN. : CT CT CERVICAL SPINE INDICATION: trauma EXAM DATE: 09/12/2025 11:42 AM COMPARISON: None TECHNIQUE: Multiple axial CT images of the cervical spine were obtained using bone algorithm. Axial and coronal reformatting was done. Bone and soft tissue windows were reviewed. Radiation Dose Information: CT Dose: CTDI volume is 25 mGy. Dose-length product is 250 mGy*cm FINDINGS: The cervical alignment is intact. No acute cervical spine fracture is identified. The vertebral body heights are intact. No suspicious osseous lesions are identified. Multilevel degenerative changes most pronounced at C4-C5 through C6-C7. Moderate spinal canal stenosis at these levels. There is no prevertebral soft tissue swelling. IMPRESSION: No evidence of acute cervical spine fracture or traumatic malalignment. Medical Decision Making Additional information obtaine: N/A Findings na Differential Dx:Considerations: Include: Closed head injury Additional Comment 64-year-old male presenting after a mechanical fall where he sustained an abrasion and contusion over the left side of his forehead. Lab workup shows some mild hyperglycemia due to his diabetes but otherwise was unremarkable. CT of the head and neck were unremarkable as well showing no fractures or intracranial bleeding. Patient at this time is stable and safe for discharge home. He is looking well and his vitals are normal. Advised to monitor his symptoms closely. Follow up with his PCP in the next 2-3 days. Return to the ED immediately with any acutely worsening symptoms. Patient expressed full understanding of the assessment and plan and was amenable. Departure Disposition: 01 HOME / SELF CARE / HOMELESS Impression: Primary Impression: Head contusion Additional Impression: Closed head injury Condition: Stable Discharge Instructions: Contusion Additional Instructions: Follow up with her primary care physician in the next 2-3 days. Return to the ED with any acutely worsening symptoms. Referrals: NO PRIMARY CARE PROVIDER (PCP) Signature Scribe Signature: 1 Attestation: 1 OLGA WINKLER MD Sep 12, 2025 10:56
[2025-09-12] MEDS: normal saline 1000ML IV soln IVB ONE (11:09)
--- NOTE | 2025-09-12 11:10 | ELECTROCARDIOGRAPH REPORT ---
[facility] Test Date: 2025-09-12 Test Time: 11:06:37 Pat Name: LONG CAMARENA Department: [facility]- Patient ID: [id number] Room: Gender: M Manager Career: : 1960 Requested By: OLGA WINKLER Order Number: [id number] Reading MD: Dr. Alex Swain Measurements Intervals [place] Rate: 71 P: 48 NM: 175 QRS: 35 QRSD: 91 T: 101 QT: 452 QTc: 492 Interpretive Statements Ventricular-paced complexes No further rhythm analysis attempted due to paced rhythm Probable left atrial enlargement Anterior infarct, old Nonspecific T abnormalities, lateral leads Electronically Signed On 09-16-2025 20:44:[address] Alex Swain Please click the below link to view image of tracing.
[2025-09-12 11:13] LABS: MEAN PLATELET VOLUME 7.2 FL (7.4-10.4); RED CELL DISTRIBUTION WIDTH 13.8 % (11.5-14.5)
--- NOTE | 2025-09-12 11:30 | RADIOLOGY REPORT ---
CLINICAL HISTORY: SOB TECHNIQUE: Single view of the chest was obtained. COMPARISON: DI CHEST,SINGLE VIEW on DOS: 09/08/25, DI CHEST,SINGLE VIEW on DOS: 08/31/25, DI CHEST,TWO VIEWS on DOS: 08/29/25, DI CHEST,SINGLE VIEW on DOS: 08/25/25, DI CHEST,SINGLE VIEW on DOS: 08/15/25 FINDINGS: The heart size and pulmonary vasculature are normal. The lungs are clear. IMPRESSION: NO ACUTE CARDIOPULMONARY PROCESS.
[2025-09-12 11:34] LABS: CREATININE 0.81 MG/DL (0.60-1.10); TOTAL CARBON DIOXIDE 28.7 MMOL/L (24-32); eCRCL 82 ML/MIN; eGFR > 90 ML/MIN
--- NOTE | 2025-09-12 12:02 | RADIOLOGY REPORT ---
CLINICAL HISTORY: trauma TECHNIQUE: Helical scanning was performed of the head from the skull base to the vertex. Multiplanar reconstructions were performed. This exam was performed according to our departmental dose optimization program. Up-to-date CT equipment and radiation dose reduction techniques are utilized as appropriate. CTDI 63 DLP 1146 COMPARISON: None FINDINGS: There is no evidence for acute intracranial hemorrhage, acute ischemic changes, mass, mass effect, or extra-axial fluid collection. There is no hydrocephalus or midline shift. There is no effacement of the cerebral sulci and basal subarachnoid cisterns. The arvizu-white matter differentiation is well maintained. The imaged paranasal sinuses are clear. IMPRESSION: NO ACUTE INTRACRANIAL ABNORMALITY SEEN.
--- NOTE | 2025-09-12 12:10 | RADIOLOGY REPORT ---
EXAM: CT CT CERVICAL SPINE INDICATION: trauma EXAM DATE: 09/12/2025 11:42 AM COMPARISON: None TECHNIQUE: Multiple axial CT images of the cervical spine were obtained using bone algorithm. Axial and coronal reformatting was done. Bone and soft tissue windows were reviewed. Radiation Dose Information: CT Dose: CTDI volume is 25 mGy. Dose-length product is 250 mGy*cm FINDINGS: The cervical alignment is intact. No acute cervical spine fracture is identified. The vertebral body heights are intact. No suspicious osseous lesions are identified. Multilevel degenerative changes most pronounced at C4-C5 through C6-C7. Moderate spinal canal stenosis at these levels. There is no prevertebral soft tissue swelling. IMPRESSION: No evidence of acute cervical spine fracture or traumatic malalignment. All CT scans at this medical facility are performed using dose modulation techniques as appropriate to a performed exam including the following: Automated exposure control was utilized; adjustment of the MA and/or KV according to patient size; and use of iterative reconstruction technique.
[2025-09-12 12:44] VITALS: BP 125/86; PULSE 80; RESP 18; O2SAT 98
== END 2025-09-12 14:32 | disposition home or self-care (01) ==
LOC: ER 10:05
DX: S01.112A Laceration without foreign body of left eyelid and periocular area, initial encounter (principal); F10.90 Alcohol use, unspecified, uncomplicated; I11.0 Hypertensive heart disease with heart failure; I50.9 Heart failure, unspecified; E11.42 Type 2 diabetes mellitus with diabetic polyneuropathy; G89.29 Other chronic pain; I25.2 Old myocardial infarction; K21.9 Gastro-esophageal reflux disease without esophagitis; F41.9 Anxiety disorder, unspecified; F32.A Depression, unspecified; F12.90 Cannabis use, unspecified, uncomplicated; F15.90 Other stimulant use, unspecified, uncomplicated; I25.10 Atherosclerotic heart disease of native coronary artery without angina pectoris; Z79.82 Long term (current) use of aspirin; Z95.0 Presence of cardiac pacemaker; Z79.899 Other long term (current) drug therapy; Z79.4 Long term (current) use of insulin; Y90.9 Presence of alcohol in blood, level not specified; W18.39XA Other fall on same level, initial encounter; Y93.89 Activity, other specified; Y92.89 Other specified places as the place of occurrence of the external cause; Y99.8 Other external cause status
CPT/HCPCS: 36415; 70450; 71045; 72125; 80053; 82948; 83735; 85025; 93005; 96360; 96361; 99285; J7030

== ENCOUNTER 2025-09-18 09:16 | Emergency (ER) | payer MEDICAID ==
--- NOTE | 2025-09-18 09:55 | ELECTROCARDIOGRAPH REPORT ---
[facility] Test Date: 2025-09-18 Test Time: 09:24:19 Pat Name: LONG CAMARENA Department: EMERGENCY ROOM Room: Gender: M Wellness Trainer: MED : 1960 Requested By: ANA LILIA KELLEY Order Number: [id number] Reading MD: Dr. Alex Swain Measurements Intervals [place] Rate: 78 P: 49 [place]: 174 QRS: 52 QRSD: 74 T: 100 QT: 413 QTc: 471 Interpretive Statements Sinus rhythm Probable left atrial enlargement Left ventricular hypertrophy Anterior Q waves, possibly due to LVH Nonspecific T abnormalities, lateral leads Electronically Signed On 09-18-2025 18:50:[address] Alex Swain Please click the below link to view image of tracing.
[2025-09-18 10:07] LABS: MEAN PLATELET VOLUME 7.2 FL (7.4-10.4); RED CELL DISTRIBUTION WIDTH 14.3 % (11.5-14.5)
--- NOTE | 2025-09-18 10:24 | Physician Documentation ---
History of Present Illness ~ Chief Complaint: Chest Pain Stated Complaint: CP Time Seen by MD: 10:23 Primary Medical Doctor: none HPI This is a 64-year-old male who presents to the emergency department reporting chest pain. Of note, the patient was seen here for the same complaint on 09/08/2025 and was going to be admitted when he left against medical advice. At that time, his troponin was 56. The patient is also seen on 09/12/2025 with report of a forward fall when getting on a bus. At that time he had CT of the head and neck and a chest x-ray. He currently describes his pain as upper chest tightness and rates it 04/22. Hx CHF, former methatmphetamine use. Medication Reconciliation Allergies: Coded Allergies: No Known Allergies (Unverified , 09/12/25) Scheduled Aspirin (Aspirin EC), 1 TAB PO DAILY, (Reported) Atorvastatin Calcium (Atorvastatin Calcium), 1 TAB PO DAILY Clopidogrel Bisulfate (Clopidogrel), 1 TAB PO DAILY, (Reported) Empagliflozin (Jardiance), 1 TAB PO DAILY, (Reported) Folic Acid* (Folic Acid*), 1 MG PO DAILY Furosemide (Lasix), 40 MG PO DAILY Insulin Glargine,Hum.rec.anlog* (Lantus*), 15 UNITS SQ HS Insulin Lispro (Humalog), 0 UNIT SQ ACHS Lisinopril (Lisinopril), 2.5 MG PO DAILY Metoprolol Succinate (Metoprolol Succinate), 1 TAB PO DAILY Sitagliptin Phosphate (Januvia), 1 TAB PO DAILY Miscellaneous Medications Blood Sugar Diagnostic (Accu-Chek Guide Test Strip), (Reported) Discontinued Medications Metformin HCl (Metformin HCl), 1 TAB PO Q12H Discontinued Reason: patient no longer taking Multivitamin with Folic Acid (Thera Tablet), 1 EACH PO Q24H Discontinued Reason: patient no longer taking Durable Medical Equipment Syringe & Needle,Insulin,1 ml (Insulin Syringe), SYR SUBCUT DAILY, (DME) Past Medical History Past Medical History: Peripheral Neuropathy, Coronary Artery Disease, Congestive Heart Failure, Heart Valve Disease, Hypertension, Myocardial Infarction, GERD, BPH, Diabetes, Chronic Pain, HIV, Anxiety, Depression Past Surgical History: noncontributory Patient History: FH: diabetes mellitus (Sister,) FH: heart disease FATHER MOTHER FH: thyroid condition Alcohol Use: Heavy Drug Use: marijuana, methamphetamine Review of Systems ROS As stated above in the HPI, otherwise all systems are reviewed and negative. Physical Exam Vital Signs: Temperature: 97.9, Source: Oral, Heart Rate: 78, Respiratory Rate: 16, BP: 115/69, Pulse Oximetry: 98 Physical Exam General: Well developed, well nourished, mild distress. HEENT: Atraumatic, normal conjunctiva, moist mucous membranes. Neck: Full range of motion, supple. Respiratory: Lungs clear, no respiratory distress. Chest: No accessory muscle use, nontender. Cardiovascular: Regular rate and rhythm. Gastrointestinal: Soft, nontender, nondistended. Bowels sounds present. Extremities: Normal range of motion, nontender, normal capillary refill, no deformity. Neurologic: Oriented x4. Psychiatric: Normal mood and affect. No pronator drift. Skin: Normal color, warm and dry. No edema, no ecchymosis Progress Progress Note 1120: This re-evaluated and reports his pain is 5/10 after one nitro. Discussed with him that he would benefit from being admitted due to his history of congestive heart failure and his episodic chest pain today. Patient declin es, and was then offered to stay for at least a 2 hour repeat troponin, patient declines. He reports that he has had a referral to a car oiler and will do this follow up. He also notes that he is comfortable returning if worse. Results/Orders Results/Orders Orders - DEEPTHI DAVISON NP Nitroglycerin Sublingual Tab (Nitrostat (09/18/25 10:40) Heart Healthy Diet (09/18/25 Dinner) Medications Received in ER Medications (Trade) Dose Ordered Sig/Aaron Route PRN Reason Start Time Stop Time Status Last Admin Dose Admin (Nitrostat SL tablet) 0.4 mg NOW PRN SL chest pain 09/18/25 10:40 09/18/25 10:50 0.4 MG Vital Signs 09/18/25 09/18/25 09/18/25 09:24 10:36 10:51 Temp 97.9 Pulse 78 Resp 16 16 B/P (MAP) 115/69 Pulse Ox 98 95 O2 Delivery Room Air* O2 Flow Rate 0 FiO2 21 Laboratory Tests Test 09/18/25 09:41 White Blood Count 8.1 Red Blood Count 4.45 L Hemoglobin 13.6 L Hematocrit 40.4 L Mean Corpuscular Volume 90.9 Mean Corpuscular Hemoglobin 30.6 Mean Corpuscular Hemoglobin Concent 33.6 Red Cell Distribution Width 14.3 Platelet Count 298 Mean Platelet Volume 7.2 L Neutrophils (%) (Auto) 63.2 Lymphocytes (%) (Auto) 28.0 Monocytes (%) (Auto) 7.4 Eosinophils (%) (Auto) 0.8 Basophils (%) (Auto) 0.6 Neutrophils # (Auto) 5.1 Lymphocytes # (Auto) 2.3 Monocytes # (Auto) 0.6 Eosinophils # (Auto) 0.1 Basophils # (Auto) 0.0 CBC Comment Sodium Level 136 Potassium Level 4.2 Chloride Level 103 Carbon Dioxide Level 26.4 Anion Gap 7 L Blood Urea Nitrogen 41 H Creatinine 1.03 Estimated GFR/1.73 m2 73 BUN/Creatinine Ratio 39.8 H Glucose Level 168 H Calcium Level 8.3 L Troponin I High Sensitivity 55 Pro-B-Type Natriuretic Peptide 1395 H Albumin 3.5 Chemistry Comments EKG/XRAY/CT/US/VASC/MRI EKG : Additional Comment 0924 EKG interpreted to show RSR with multi-focal PVCs. Rate of 78. No St segment elevatrion. QTC 471 ms. Medical Decision Making Additional information obtaine: old records Findings Two recent visits reviewed. Heart Score: 5 Differential Dx:Considerations: Include: angina, aortic dissection, chest wall pain, cholelithiasis, CHF, costochondritis, esophageal reflux/spasm, gastritis, herpes zoster, myocardial infarction, pericarditis, pleuritis, pancreatitis, pneumonia, pneumothorax, pulmonary embolus Additional Information This is a 64-year-old male with a history of congestive heart failure and methamphetamine use. He presented today due to onset of 7/10 upper chest pain. This was alleviated somewhat with one nitro, taking a score from 7/10 to 5/10. Initial troponin negative. EKG without acute abnormalities. Recommended admission, patient declined. Recommended staying for 2 hour repeat troponin, patient declined. He will be discharged, and does note that he had a cardiology follow up upcoming. He is to return if worse. Departure Time of Disposition: 11:24 Disposition: 01 HOME / SELF CARE / HOMELESS Impression: Primary Impression: Chest pain Condition: Stable Discharge Instructions: Nonspecific Chest Pain, Adult Additional Instructions: Please keep your cardiology follow up appointment. Please return if worse. Referrals: NO PRIMARY CARE PROVIDER (PCP) Prescriptions Nitroglycerin SL* (Nitrostat SL*) 0.4 Mg Tablet 1 TAB SL Q5MIN PRN for Chest pain Q5min PRNx3-call MD, #25 TAB Prov: DEEPTHI DAVISON NP 09/18/25 Education Educated: Patient Educated regarding: diagnosis, treatment, prognosis, need for follow up Signature Scribe Signature: x Attestation: The note accurately reflects work and decisions made by me.Deepthi Rushing NP 09/18/25 10:41 DEEPTHI DAVISON NP Sep 18, 2025 10:24
--- NOTE | 2025-09-18 10:34 | RADIOLOGY REPORT ---
CHEST RADIOGRAPH Indication: CP Technique: DI CHEST,SINGLE VIEW Comparison: None FINDINGS: The cardiac silhouette is unremarkable. The lungs demonstrate no pulmonary airspace consolidation. The pulmonary vasculature is unremarkable. There is no pleural effusion. There is no pneumothorax. IMPRESSION: No pulmonary airspace consolidation.
[2025-09-18 10:36] VITALS: RESP 16
[2025-09-18 10:36] LABS: CREATININE 1.03 MG/DL (0.60-1.10); PRO BRAIN NATRIURETIC PEPTIDE 1395 PG/ML (0-125); TOTAL CARBON DIOXIDE 26.4 MMOL/L (24-32); eGFR 73 ML/MIN
[2025-09-18 10:51] VITALS: O2SAT 95
[2025-09-18] MEDS ORDERED: NITR0.4T51 SL (11:25)
[2025-09-18 11:43] VITALS: BP 122/76; PULSE 86; TEMP 97.9
== END 2025-09-18 11:53 | disposition home or self-care (01) ==
LOC: ER 09:17
DX: R07.9 Chest pain, unspecified (principal); E11.42 Type 2 diabetes mellitus with diabetic polyneuropathy; I11.0 Hypertensive heart disease with heart failure; I50.9 Heart failure, unspecified; F41.9 Anxiety disorder, unspecified; K21.9 Gastro-esophageal reflux disease without esophagitis; F32.A Depression, unspecified; I25.10 Atherosclerotic heart disease of native coronary artery without angina pectoris; I25.2 Old myocardial infarction; Z79.82 Long term (current) use of aspirin
CPT/HCPCS: 36415; 71045; 80048; 83880; 84484; 85025; 93005; 99285

== ENCOUNTER 2025-11-12 14:14 | Emergency (ER) | payer MEDICAID ==
[~2025-11-12] VITALS: Ht 167.6 cm; Wt 65.0 kg
[~2025-11-12 14:14] MED LIST changes: +GABA-530 PO; +METO-384 PO; -MULT-25 PO
--- NOTE | 2025-11-12 15:16 | Physician Documentation ---
History of Present Illness General Chief Complaint: Chest Wall Pain Stated Complaint: CHEST PAIN Time Seen by MD: 15:04 Primary Medical Doctor: none History of Present Illness Initial Comments 64-year-old male insulin-dependent diabetic brought in by EMS from the [place] for evaluation of persistent cough for 2-3 weeks with productive green sputum and pleuritic chest discomfort. Patient is alert and oriented nontoxic appearing. Denies venous smoker of cigarettes his yet states he smokes oc casionally cannabis. Reports that he has been screened in the last couple of days for COVID and it was negative. His sputum is reported above his green and thick. Denies shortness a breath, palpitations or recent syncope. Last seen in the emergency department 12 days ago Medication Reconciliation Allergies: Coded Allergies: No Known Allergies (Unverified , 10/30/25) Scheduled Albuterol Sulfate (Ventolin Hfa), 2 PUFFS INH Q4HPRN Aspirin (Aspirin EC), 1 TAB PO DAILY, (Reported) Atorvastatin Calcium (Atorvastatin Calcium), 1 TAB PO DAILY Azithromycin (Zithromax), 1 TAB PO DAILY Clopidogrel Bisulfate (Clopidogrel), 1 TAB PO DAILY, (Reported) Empagliflozin (Jardiance), 1 TAB PO DAILY, (Reported) Folic Acid* (Folic Acid*), 1 MG PO DAILY Furosemide (Lasix), 40 MG PO DAILY Gabapentin (Gabapentin), 1 CAP PO Q8H Insulin Glargine,Hum.rec.anlog* (Lantus*), 15 UNITS SQ HS Insulin Lispro (Humalog), 0 UNIT SQ ACHS Lisinopril (Lisinopril), 2.5 MG PO DAILY Metformin HCl (Metformin HCl), 1 TAB PO BID Metoprolol Succinate (Metoprolol Succinate), 1 TAB PO DAILY Metoprolol Succinate (Metoprolol Succinate), 1 TAB PO DAILY Sitagliptin Phosphate (Januvia), 1 TAB PO DAILY Miscellaneous Medications Blood Sugar Diagnostic (Accu-Chek Guide Test Strip), (Reported) Durable Medical Equipment Syringe & Needle,Insulin,1 ml (Insulin Syringe), SYR SUBCUT DAILY, (DME) Past Medical History Past Medical History: Peripheral Neuropathy, Coronary Artery Disease, Congestive Heart Failure, Heart Valve Disease, Hypertension, Myocardial Infarction, GERD, BPH, Diabetes, Chronic Pain, HIV, Anxiety, Depression Past Surgical History: noncontributory Smoking: Cigarettes Alcohol Use: Heavy Drug Use: marijuana, methamphetamine Review of Systems All Other Systems at this time: Reviewed and Negative ROS See HPI Constitutional: Denies: fever, chills, diaphoresis, weakness Physical Exam Physical Exam Vital Signs: RN Vital Signs have been reviewed: Yes, Temperature: 98.8, Source: Oral, Heart Rate: 96, Respiratory Rate: 26, BP: 138/79, Pulse Oximetry: 98, Weight: 65.000 Oxygen Flow Rate: 0 General Appearance: alert, WD/WN, mild distress General Appearance Disheveled Face: normal inspection Pupils/EOM/Fundus: PERRLA Nose: normal inspection Neck: non-tender Respiratory: rhonchi, wheezing; No: respiratory distress Cardiovascular: normal peripheral pulses, regular rate, rhythm, no edema, no gallop, no JVD Gastrointestinal: non-tender Back: normal inspection Extremities: normal range of motion Neurologic: oriented x4 Motor / Sensory: no motor deficit, no sensory deficit Psychiatric: normal mood/affect Skin: normal color Lymphatic: no adenopathy Progress Results/Orders Results/Orders Orders - DAVID GROSS * Rt Notification Q1H (11/12/25 15:14) Completed Orders - DAVID GROSS Azithromycin Tablet (Zithromax Tablet) (11/12/25 15:15) Benzonatate Capsule (Tessalon Perles Cap (11/12/25 15:15) Albuterol 2.5mg/3ml Nebule (Proventil 2. (11/12/25 15:15) Insulin Regular, Human (Humulin R 10 Uni (11/12/25 16:10) Normal Saline 1000ml (0.9% Sodium Chlori (11/12/25 16:10) Medications Received in ER Medications (Trade) Dose Ordered Sig/Aaron Route PRN Reason Start Time Stop Time Status Last Admin Dose Admin (Zithromax tablet) 500 mg ONCE ONCE PO 11/12/25 15:15 11/12/25 15:21 DC 11/12/25 15:41 500 MG (Tessalon Perles capsule) 100 mg ONCE ONCE PO 11/12/25 15:15 11/12/25 15:21 DC 11/12/25 15:41 100 MG (Proventil 2.5 MG/3ML nebule) 2.5 mg ONCE ONCE NEB 11/12/25 15:15 11/12/25 15:21 DC 11/12/25 16:51 2.5 MG (HumuLIN R 10 units per 0.1 ML syringe) 10 units ONCE ONCE SQ 11/12/25 16:10 11/12/25 16:11 DC 11/12/25 16:25 10 UNITS Sodium Chloride 1,000 ml @ 1,000 mls/hr ONCE ONCE IV 11/12/25 16:10 11/12/25 17:09 DC 11/12/25 16:26 1,000 MLS/HR Vital Signs 11/12/25 11/12/25 11/12/25 11/12/25 15:01 15:30 15:30 15:38 Temp 98.8 98.8 Pulse 96 93 Resp 26 16 15 B/P (MAP) 138/79 128/63 (84) Pulse Ox 98 95 96 O2 Delivery Room Air* O2 Flow Rate 0 0 0 FiO2 21 11/12/25 11/12/25 16:52 16:59 Pulse 93 102 Resp 18 18 Pulse Ox 95 100 O2 Delivery Room Air* Room Air* O2 Flow Rate 0 0 FiO2 21 21 Laboratory Tests Test 11/12/25 15:12 11/12/25 16:23 11/12/25 16:48 11/12/25 17:30 White Blood Count 9.3 Red Blood Count 4.15 L Hemoglobin 12.3 L Hematocrit 37.7 L Mean Corpuscular Volume 90.8 Mean Corpuscular Hemoglobin 29.8 Mean Corpuscular Hemoglobin Concent 32.8 L Red Cell Distribution Width 15.0 H Platelet Count 331 Mean Platelet Volume 7.4 Neutrophils (%) (Auto) 71.8 Lymphocytes (%) (Auto) 20.0 L Monocytes (%) (Auto) 7.3 Eosinophils (%) (Auto) 0.3 Basophils (%) (Auto) 0.6 Neutrophils # (Auto) 6.7 Lymphocytes # (Auto) 1.9 Monocytes # (Auto) 0.7 Eosinophils # (Auto) 0.0 Basophils # (Auto) 0.1 CBC Comment Sodium Level 132 L Potassium Level 4.7 Chloride Level 97 L Carbon Dioxide Level 29.1 Anion Gap 6 L Blood Urea Nitrogen 26 H Creatinine 1.12 H Estimated GFR/1.73 m2 66 BUN/Creatinine Ratio 23.2 H Glucose Level 554 *H Calcium Level 8.4 L Troponin I High Sensitivity 43 39 Pro-B-Type Natriuretic Peptide 3232 H Albumin 2.6 L Chemistry Comments Glucometer 463 *H Troponin I High Sens Percent Delta 9 Troponin I Hi Sens Absolute Change -4 Urine Comment Test 11/12/25 17:36 Glucometer 329 H Medical Decision Making Additional information obtaine: old records Findings Examination and history is 7 three year old male who is consistent that with the lower respiratory tract infection. Will obtain screening labs and obtain chest x-ray. First dose oral antibiotic azithromycin provided while awaiting chest imaging results and albuterol nebulizer for wheezing and Tessalon Perles for cough. Patient awaits reassessment stable without acute respiratory distress. Patient's blood sugar noted to be 500 for which he will receive a L of normal saline and 10 units of insulin. Patient has insulin back at the [place] and has the capability to check his sugars and take additionally insulin as needed yet reports he takes a single dose and often does not check his sugars. Understands to take his insulin tonight and we will be compliant. His IM gap is closed and there was no nausea or vomiting. No LEOBARDO. Otherwise patient's labs are reassuring. With no obvious source of infection yet I suspect the underlying drive for his elevated forced hyperglycemia may be multifactorial to include lack of take compliance but using glucometer and early developing lower respiratory infection. Differential Diagnosis Differentials include pneumonia, CHF, ACS, UTI, other pulmonary etiologies Departure Disposition: 01 HOME / SELF CARE / HOMELESS Impression: Primary Impression: Acute upper respiratory infections of other multiple sites Additional Impressions: Pleuritic chest pain Hyperglycemia Condition: Improved Discharge Instructions: Hyperglycemia Additional Instructions: Please continue with your scheduled medications as directed by your doctor. Please do blood sugar checks prior to insulin administration. Make follow up appointment with the primary care physician. Begin antibiotic and albuterol inhaler for your cough. Return in the emergency department as needed. Thank you for visiting emergency department [facility]. Have a happy new year. Referrals: NO PRIMARY CARE PROVIDER (PCP) Prescriptions Albuterol Sulfate (Ventolin Hfa) 90 Mcg Hfa.aer.ad 2 PUFFS INH Q4HPRN for cough, #1 INHALER Prov: DAVID GROSS 11/12/25 Azithromycin (Zithromax) 250 Mg Tablet 1 TAB PO DAILY, #6 TAB azithromycin z pack as directed in packaging Prov: DAVID GROSS 11/12/25 Education Educated: Patient Educated regarding: diagnosis, treatment, prognosis, need for follow up Signature Scribe Signature: . Attestation: . DAVID [facility] Nov 12, 2025 15:16
[2025-11-12 15:21] LABS: MEAN PLATELET VOLUME 7.4 FL (7.4-10.4); RED CELL DISTRIBUTION WIDTH 15.0 % (11.5-14.5)
[2025-11-12 15:30] VITALS: TEMP 98.8
--- NOTE | 2025-11-12 15:37 | RADIOLOGY REPORT ---
AP portable chest CLINICAL INDICATION: CP Comparison: 10/30/2025 FINDINGS: Heart size enlarged with a left ventricular configuration. No infiltrates or effusions. IMPRESSION: 1. No acute cardiopulmonary pathology compared to prior study
[2025-11-12 15:47] LABS: CREATININE 1.12 MG/DL (0.60-1.10); PRO BRAIN NATRIURETIC PEPTIDE 3232 PG/ML (0-125); TOTAL CARBON DIOXIDE 29.1 MMOL/L (24-32); eCRCL 61 ML/MIN; eGFR 66 ML/MIN
[2025-11-12] MEDS ORDERED: AZIT-164 PO (16:24)
[2025-11-12] MEDS ORDERED: ALBU18HF2 INH (16:24)
[2025-11-12] MEDS: insulin regular, human 10 units/0.1 ml syringe SQ ONE (16:25)
[2025-11-12] MEDS: normal saline 1000ml 1,000 ML IV ONE (16:26)
[2025-11-12] MEDS: albuterol 2.5 MG/3 ML nebule NEB ONE (16:51)
[2025-11-12 16:52] VITALS: PULSE 93; RESP 18; O2SAT 95
[2025-11-12 16:59] VITALS: PULSE 102; RESP 18; O2SAT 100
[2025-11-12 18:29] VITALS: BP 137/63; PULSE 107; RESP 22; O2SAT 94
--- NOTE | 2025-11-13 07:01 | ELECTROCARDIOGRAPH REPORT ---
[facility] Test Date: 2025-11-12 Test Time: 14:33:53 Pat Name: LONG CAMARENA Department: EMERGENCY ROOM Patient ID: [id number] Room: Gender: M Lead Pourer: MARYAM : 1960 Requested By: ALEX SWAIN Order Number: [id number] Reading MD: Dr. Alex Swain Measurements Intervals [place] Rate: 89 P: 43 TN: 157 QRS: 38 QRSD: 81 T: 104 QT: 399 QTc: 486 Interpretive Statements Sinus rhythm LAE, consider biatrial enlargement LVH with secondary repolarization abnormality Borderline prolonged QT interval Electronically Signed On 11-13-2025 9:38:[address] Alex Swain Please click the below link to view image of tracing.
== END 2025-11-12 18:34 | disposition home or self-care (01) ==
LOC: ER 14:14
DX: E11.65 Type 2 diabetes mellitus with hyperglycemia (principal); E11.42 Type 2 diabetes mellitus with diabetic polyneuropathy; R07.81 Pleurodynia; F12.90 Cannabis use, unspecified, uncomplicated; F17.210 Nicotine dependence, cigarettes, uncomplicated; K21.9 Gastro-esophageal reflux disease without esophagitis; F41.9 Anxiety disorder, unspecified; F32.A Depression, unspecified; J06.9 Acute upper respiratory infection, unspecified; G89.29 Other chronic pain; I25.2 Old myocardial infarction; I25.10 Atherosclerotic heart disease of native coronary artery without angina pectoris; I11.0 Hypertensive heart disease with heart failure; I50.9 Heart failure, unspecified; Z79.4 Long term (current) use of insulin; Z79.899 Other long term (current) drug therapy; Z79.82 Long term (current) use of aspirin
CPT/HCPCS: 36415; 71045; 80048; 82948; 83880; 84484; 85025; 93005; 94640; 96360; 96372; 99285; J1815; J7030; 94760